=== PATIENT | male | born 1960 | race Caucasian/White ===

== ENCOUNTER 2018-04-18 15:52 | Observation (INO) | payer OTHER, SELFPAY ==
[2018-04-18] VITALS (9 sets, daily range): BP systolic 136–146; BP diastolic 70–92; PULSE 68–92; RESP 13–20; TEMP 36.7–37; O2SAT 94–99; BMI 25.9; BMI 26.0; BMI 25.4
--- NOTE | 2018-04-18 16:25 | EKG12_ITS ---
Test Reason : Blood Pressure : / mmHG Vent. Rate : 086 BPM Atrial Rate : 086 BPM P-R Int : 160 ms QRS Dur : 100 ms QT Int : 344 ms P-R-T Axes : 025 -13 016 degrees QTc Int : 411 ms Normal sinus rhythm Normal ECG Confirmed by YUNG KAMARA, JYOTI ([id number]), acquisitions editor JOEL MARIN ([id number] on 04/22/2018 1:10:29 PM Referred By: NINA Confirmed By:JYOTI BARRAGAN MD
--- NOTE | 2018-04-18 16:35 | RAD_ITS ---
STUDY: X-RAY CHEST REASON FOR EXAM: Male, 58 years old. Chest pain and weakness TECHNIQUE: Single AP portable view of the chest. COMPARISON: 11/10/2015 FINDINGS: There is hyperinflation of the lungs consistent with chronic obstructive lung disease (COPD). There is no demonstrated pleural abnormality. Normal size heart. Normal mediastinum and phillip. Normal visualized pulmonary arteries. Normal visualized aortic arch and descending thoracic aorta. Normal visualized thoracic spine. Normal visualized ribs, clavicles, and shoulders. There is no demonstrated abnormality of the visualized soft tissue structures of the upper abdomen. RAD/Chest 1 View (Portable) IMPRESSION: No acute findings Electronically Signed: Drew Santoro DO at 16:48 EDT Tel , Service support ,
[2018-04-18] MEDS: Aspirin 81 MG TAB.CHEW 324 MG PO (16:46)
[2018-04-18] MEDS: 0.9% Normal Saline 1,000 ML 150 ML IV ×2 (16:46→19:59)
[2018-04-18 17:11] LABS: Absolute Lymphocyte Count 2.23 X10^3/ul (0.83-4.51); Absolute Neutrophil Count 4.8 X10^3/uL (2.0-7.7); Basophil# 0.03 X10^3/uL; Basophil% 0.4 % (0-1); Eosinophil# 0.22 X10^3/uL; Eosinophils% 2.8 % (0-5); Hematocrit 42.4 % (40-54); Hemoglobin 14.4 g/dl (13.0-16.5); Lymphocyte # 2.23 X10^3/ul (4.0); Lymphocyte % 28.2 % (19-41); Mean Corpuscular Hgb 32.4 pg (27.0-32.0); Mean Corpuscular Volume 95.5 fL (80-94); Mean Platelet Vol. 9.7 fl (6.2-12.0); Monocyte# 0.66 X10^3/uL; Monocyte% 8.3 % (0-10); Neutrophil # 4.76 X10^3/uL (2.7-7.7); Neutrophil % 60.2 % (47-70); Platelet Count 246 K/mm3 (150-450); RBC Distribution Width CV 13.6 % (11.6-14.6); RBC Distribution Width SD 47.2 fl (35.1-43.9); Red Blood Count 4.44 M/mm3 (4.6-6.2); White Blood Count 7.9 K/mm3 (4.4-11.0)
[2018-04-18 17:29] LABS: Anion Gap 5 (5-15); BUN 13 mg/dL (7-18); BUN/Creat Ratio 12.5 RATIO (10-20); Calcium,Total 9.2 mg/dL (8.5-10.1); Chloride 107 mmol/L (98-107); Creatinine, Serum 1.04 mg/dL (0.70-1.30); EST Glomerular Filtration Rate 79 mL/min (>60); Est Glom Filt Rate - Afr Amer 95 mL/min (>60); Estimated Creatinine Clearance 79.31 ml/min; Glucose 88 mg/dL (74-106); Potassium 4.6 mmol/L (3.5-5.1); Sodium Level 138 mmol/L (136-145)
[2018-04-18 17:58] LABS: POSITIVE COUNT NO; POSITIVE DIFFERENTIAL NO; POSITIVE MORPHOLOGY NO
--- NOTE | 2018-04-18 18:09 | PCM.HP.STD ---
Problem List (1) Shortness of breath Status: Acute History of Present Illness Date of Admission: 04/18/18 Chief Complaint: Shortness of breath The patient is a 58 year old M with a history of hypertension, hyperlipidemia and seasonal allergies. He was admitted on 04/18/2018 by the ED with a complaint of shortness of breath of one days duration. According to patient he was doing yard work the day before admission and had sudden onset shortness of breath and some mild wheezing. It worsened with exertion was relieved by rest. 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 He was told it was elevated and so he decided to come into the ED to be checked out. He denied any chest pain and only admitted to occasional tingling in his left upper extremity. Denied any orthopnea or PND. He has an extensive smoking history of about 30 pack years and states he does have some wheezing periodically and has seasonal allergies for which he is treated. Patient had a stress test about 5 years ago he presented with chest pain and it was negative. In the ED vitals were temperature of 98.1 Fahrenheit, blood pressure of 145/70, pulse rate of 75 and respiratory rate of 14. He was saturating at 97% on room air. Labs done were pretty unremarkable. Chest x-ray showed hyperinflation of the lungs consistent with COPD and a normal sized heart. No acute findings noted. Patient is being admitted to rule out ACS in light of his cardiac risk factors. [] Past Medical History Allergies Sulfa (Sulfonamide Antibiotics) Allergy (Severe, Verified 08/27/15 16:43) Anaphylaxis NUTS Allergy (Uncoded 11/10/15 18:48) Shortness of breath Home Medications: Ambulatory Orders Medication Instructions Recorded Losartan Potassium [Cozaar] 100 mg PO DAILY 08/22/15 Albuterol Inhaler [Ventolin Hfa] 1 - 2 puff INHALATION Q4H PRN PRN 11/10/15 #1 inhaler Atorvastatin Calcium [Lipitor] 20 mg PO QHS 04/18/18 Fexofenadine/Pseudoephedrine 1 each PO DAILY 04/18/18 [Meghana-D 24 Hour Tablet] Montelukast [Singulair] 10 mg PO QHS 04/18/18 Surgical History: tonsillectomy - At age 6 Psychiatric History: No pertinent psych hx Lives: Spouse/ Significant Other Smoking Status: Current every day smoker Alcohol: Occasional Drugs: None - *Family History Paternal History Items: Heart Disease Maternal History Items: Heart Disease Review of Systems Constitutional: Denies: Chills, Fever, Weight Change Eyes: Denies: Blurred vision HEENT: Denies: Head Aches, Sinus Congestion, Sinus Drainage Cardiovascular: Denies: Chest Pain, Chest Pressure, Chest Tightness, Heaviness, Light Headedness, Orthopnea, Palpitations, Paroxysmal Noc. Dyspnea, Syncope Respiratory: Reports: Shortness of Breath, Shortness of breath upon exertion, Wheezing. Denies: Cough, Shortness of breath at rest, Sputum production Gastrointestinal: Denies: Abdominal Pain, Nausea, Vomiting Genitourinary: Denies: Dysuria Musculoskeletal: Denies: Joint Pain, Joint Tenderness Skin: Denies: Rash, Wounds Neurological: Denies: Numbness, Tingling, Focal weakness Psychiatric: Denies: Anxiety, Depression, Homicidal Ideations, Suicidal Ideations Hematologic/ Lymphatic: Denies: Easy Bruising, Easy Bleeding VTE Information - Inpt Only VTE Present on Admission: No VTE Mechan Device Prophylaxis: None VTE Pharm Prophylaxis ordered?: Yes Patient Problems: Active and Suspected Problems Shortness of breath (Acute) - Physical Exam General: Alert, Oriented x3, Cooperative, No apparent distress HEENT: Atraumatic, PERRLA, EOMI, Normocephalic Oral: Moist Mucosa Neck: Supple, No JVD, Negative Carotid Bruits Lungs: Clear to auscultation, Normal air movement Cardiovascular: Regular rate, Regular Rhythm, Normal S1, Normal S2, No murmurs Abdomen: Bowel Sounds Present, Soft, Non Tender, Non-Distended, No Hepato-splenomegaly Extremities: No clubbing, No cyanosis, No edema, Capillary Refill Less than 3 Seconds Skin: No rashes, No breakdown Musculoskeletal: No Tenderness to Palpation of Joints or Extremities Lymphatic: No Cervical, Supraclavicular, or Inguinal Adenopathy Neurological: Cranial nerves II-XII grossly intact Psych/Mental Status: Normal Affect, Appropriate, Alert and oriented to time, place, person, mood and affect Vital Signs Temp Pulse Resp BP Pulse Ox 98.1 F 75 14 145/70 H 97 04/18/18 15:53 04/18/18 17:15 04/18/18 17:15 04/18/18 17:15 04/18/18 17:15 Oxygen Delivery Method Room Air Weight: 176 lb Body Mass Index (BMI) 25.9 Laboratory Tests Past 24 Hrs 04/18/18 04/18/18 16:50 16:50 WBC 7.9 RBC 4.44 L Hgb 14.4 Hct 42.4 MCV 95.5 H MCH 32.4 H MCHC 34.0 RDW 13.6 RDW Differential 47.2 H Plt Count 246 MPV 9.7 Immature Gran % (Auto) 0.100 Neut % (Auto) 60.2 Lymph % (Auto) 28.2 [place] % (Auto) 8.3 Eos % (Auto) 2.8 Baso % (Auto) 0.4 Absolute Neuts (auto) 4.8 Absolute Lymphs (auto) 2.23 Total Counted Not Reportable Sodium 138 Potassium 4.6 Chloride 107 Carbon Dioxide 26.0 Anion Gap 5 BUN 13 Creatinine 1.04 Estim Creat Clear Calc 79.31 Est GFR (MDRD) Af Amer 95 Est GFR (MDRD) Non-Af 79 BUN/Creatinine Ratio 12.5 Glucose 88 Calcium 9.2 Troponin I < 0.015 Diagnostic Data Chest X-Ray 04/18/18 16:35 IMPRESSION: No acute findings Electronically Signed: Drew Santoro DO at 16:48 EDT Tel , Service support , Assessment/Plan All Active Problems Shortness of breath (Acute) 58-year-old male presenting with a one-day history of shortness of breath 1. Exertional dyspnea, probably due to COPD; will want to rule out ACS' Shortness of breath associated with wheezing. EKG showed normal sinus rhythm with no acute ST changes. Also normal axis. Patient did not have any clear chest pain per se but this is exertional shortness of breath and his cardiac risk factors of hypertension, hypercholesterolemia and extensive smoking history does put him at risk of coronary artery disease. Admit to [facility] with telemetry. Initial troponin was negative. We will cycle. To have treadmill nuclear stress test tomorrow. Will keep n.p.o. past midnight. Sublingual nitroglycerin as needed. will start PO aspirin 81mg daily 2. COPD Does not have a clear diagnosis of COPD. However he has an extensive smoking history of 30 pack years. Chest x-ray demonstrated hyperinflation. No PFTs on file. Will give albuterol and Atrovent for breathing treatments. Test PFT on outpatient basis. 3. Hypertension: on losartan. Will monitor 4. seasonal allergies: on fexofenadine/pseudoephedrine. 5. Hyperlipidemia; on atorvastatin 20mg qhs. will check lipid panel, and check ASCVD score;will adjust statin dose if needed based on his ASCVD score 6. DVT prophylaxis: lovenox CODE STATUS: Full Code. Patient and counseled on different types of CODE STATUS and the remaining implication. Patient selected to be full code. This note was generated with [employer] dictation software. It may contain incorrect words, spelling, and punctuation that were not noted in checking the note before signing. Code Visit OBSV E&M: [id number] Initial observation care L2
--- NOTE | 2018-04-18 18:12 | ED.VISSUMM ---
- ER Visit Summary Date of Service: 04/18/18 Chief Complaint: [Exertional dyspnea] History of Present Illness: The patient is a 58 M [presents the emergency department complaint of shortness of breath especially with exertion. Patient states that he had an episode yesterday where he was shoveling gravel and got very short of breath. Patient states that he went home and sat down and became very diaphoretic and extremely nauseated. Patient states that over last several months he has been more short of breath than usual with activity. Patient states he has no energy. Patient had a hard time sleeping last night just did not feel well and today went to the [place] station and have his blood pressure checked and noticed that his systolic was over 160. Patient denies any chest pain. He denies recent travel or surgery. There is no family history of heart disease.] Physical Examination: [HEENT-PERRLA, EOMI. Cranial nerves II through XII grossly intact. TMs clear. Mucous membranes moist. No adenopathy. Cardiovascular-regular rate and rhythm without murmur or ectopy Lungs-clear to auscultation, chest wall stable without crepitus or subcu emphysema Abdomen-normoactive bowel sounds, soft, nontender, no rebound or rigidity, no peritoneal signs. Extremities-intact ?4, normal range of motion, normal pulses, atraumatic] Test Results: [EKG obtained on arrival showed a sinus rhythm with a ventricular rate of 86 bpm with no acute ST segment changes. CBC with differential is normal. Chemistries unremarkable. Troponin was less than 0.015. Chest x-ray showed nothing acute.] Emergency Department Course and Treatment: [Patient received aspirin in the emergency department] Treatment Plan: [Admit for further workup and evaluation of exertional dyspnea as patient has multiple risk factors for coronary artery disease including hypertension, high cholesterol, smoking history, age, and male sex.] Disposition: [Admit] Impression: [Exertional dyspnea-rule out acute coronary syndrome] This note was generated with [employer] dictation software. It may contain incorrect words, spelling, and punctuation that were not noted in review of the chart prior to signing ED Disposition - Plan for ED Patient: Chief Complaint: General Illness Referrals: Ila Pacheco MD [Primary Care Provider] -
--- NOTE | 2018-04-18 18:19 | HP.PCM_ITS ---
Problem List (1) Shortness of breath Status: Acute History of Present Illness Date of Admission: 04/18/18 Chief Complaint: Shortness of breath The patient is a 58 year old M with a history of hypertension, hyperlipidemia and seasonal allergies. He was admitted on 04/18/2018 by the ED with a complaint of shortness of breath of one days duration. According to patient he was doing yard work the day before admission and had sudden onset shortness of breath and some mild wheezing. It worsened with exertion was relieved by rest. 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 He was told it was elevated and so he decided to come into the ED to be checked out. He denied any chest pain and only admitted to occasional tingling in his left upper extremity. Denied any orthopnea or PND. He has an extensive smoking history of about 30 pack years and states he does have some wheezing periodically and has seasonal allergies for which he is treated. Patient had a stress test about 5 years ago he presented with chest pain and it was negative. In the ED vitals were temperature of 98.1 Fahrenheit, blood pressure of 145/70, pulse rate of 75 and respiratory rate of 14. He was saturating at 97% on room air. Labs done were pretty unremarkable. Chest x-ray showed hyperinflation of the lungs consistent with COPD and a normal sized heart. No acute findings noted. Patient is being admitted to rule out ACS in light of his cardiac risk factors. [] Past Medical History Allergies Sulfa (Sulfonamide Antibiotics) Allergy (Severe, Verified 08/27/15 16:43) Anaphylaxis NUTS Allergy (Uncoded 11/10/15 18:48) Shortness of breath Home Medications: Ambulatory Orders Medication Instructions Recorded Losartan Potassium [Cozaar] 100 mg PO DAILY 08/22/15 Albuterol Inhaler [Ventolin Hfa] 1 - 2 puff INHALATION Q4H PRN PRN 11/10/15 #1 inhaler Atorvastatin Calcium [Lipitor] 20 mg PO QHS 04/18/18 Fexofenadine/Pseudoephedrine 1 each PO DAILY 04/18/18 [Meghana-D 24 Hour Tablet] Montelukast [Singulair] 10 mg PO QHS 04/18/18 Surgical History: tonsillectomy - At age 6 Psychiatric History: No pertinent psych hx Lives: Spouse/ Significant Other Smoking Status: Current every day smoker Alcohol: Occasional Drugs: None - *Family History Paternal History Items: Heart Disease Maternal History Items: Heart Disease Review of Systems Constitutional: Denies: Chills, Fever, Weight Change Eyes: Denies: Blurred vision HEENT: Denies: Head Aches, Sinus Congestion, Sinus Drainage Cardiovascular: Denies: Chest Pain, Chest Pressure, Chest Tightness, Heaviness, Light Headedness, Orthopnea, Palpitations, Paroxysmal Noc. Dyspnea, Syncope Respiratory: Reports: Shortness of Breath, Shortness of breath upon exertion, Wheezing. Denies: Cough, Shortness of breath at rest, Sputum production Gastrointestinal: Denies: Abdominal Pain, Nausea, Vomiting Genitourinary: Denies: Dysuria Musculoskeletal: Denies: Joint Pain, Joint Tenderness Skin: Denies: Rash, Wounds Neurological: Denies: Numbness, Tingling, Focal weakness Psychiatric: Denies: Anxiety, Depression, Homicidal Ideations, Suicidal Ideations Hematologic/ Lymphatic: Denies: Easy Bruising, Easy Bleeding VTE Information - Inpt Only VTE Present on Admission: No VTE Mechan Device Prophylaxis: None VTE Pharm Prophylaxis ordered?: Yes Patient Problems: Active and Suspected Problems Shortness of breath (Acute) - Physical Exam General: Alert, Oriented x3, Cooperative, No apparent distress HEENT: Atraumatic, PERRLA, EOMI, Normocephalic Oral: Moist Mucosa Neck: Supple, No JVD, Negative Carotid Bruits Lungs: Clear to auscultation, Normal air movement Cardiovascular: Regular rate, Regular Rhythm, Normal S1, Normal S2, No murmurs Abdomen: Bowel Sounds Present, Soft, Non Tender, Non-Distended, No Hepato- splenomegaly Extremities: No clubbing, No cyanosis, No edema, Capillary Refill Less than 3 Seconds Skin: No rashes, No breakdown Musculoskeletal: No Tenderness to Palpation of Joints or Extremities Lymphatic: No Cervical, Supraclavicular, or Inguinal Adenopathy Neurological: Cranial nerves II-XII grossly intact Psych/Mental Status: Normal Affect, Appropriate, Alert and oriented to time, place, person, mood and affect Vital Signs Temp Pulse Resp BP Pulse Ox 98.1 F 75 14 145/70 H 97 04/18/18 15:53 04/18/18 17:15 04/18/18 17:15 04/18/18 17:15 04/18/18 17:15 Oxygen Delivery Method Room Air Weight: 176 lb Body Mass Index (BMI) 25.9 Laboratory Tests Past 24 Hrs 04/18/18 04/18/18 16:50 16:50 WBC 7.9 RBC 4.44 L Hgb 14.4 Hct 42.4 MCV 95.5 H MCH 32.4 H MCHC 34.0 RDW 13.6 RDW Differential 47.2 H Plt Count 246 MPV 9.7 Immature Gran % (Auto) 0.100 Neut % (Auto) 60.2 Lymph % (Auto) 28.2 [place] % (Auto) 8.3 Eos % (Auto) 2.8 Baso % (Auto) 0.4 Absolute Neuts (auto) 4.8 Absolute Lymphs (auto) 2.23 Total Counted Not Reportable Sodium 138 Potassium 4.6 Chloride 107 Carbon Dioxide 26.0 Anion Gap 5 BUN 13 Creatinine 1.04 Estim Creat Clear Calc 79.31 Est GFR (MDRD) Af Amer 95 Est GFR (MDRD) Non-Af 79 BUN/Creatinine Ratio 12.5 Glucose 88 Calcium 9.2 Troponin I < 0.015 Diagnostic Data Chest X-Ray 04/18/18 16:35 IMPRESSION: No acute findings Electronically Signed: Drew Santoro DO at 16:48 EDT Tel , Service support , Assessment/Plan All Active Problems Shortness of breath (Acute) 58-year-old male presenting with a one-day history of shortness of breath 1. Exertional dyspnea, probably due to COPD; will want to rule out ACS' * Shortness of breath associated with wheezing. EKG showed normal sinus rhythm with no acute ST changes. Also normal axis. * Patient did not have any clear chest pain per se but this is exertional shortness of breath and his cardiac risk factors of hypertension, hypercholesterolemia and extensive smoking history does put him at risk of coronary artery disease. * Admit to [facility] with telemetry. * Initial troponin was negative. We will cycle. * To have treadmill nuclear stress test tomorrow. Will keep n.p.o. past midnight. * Sublingual nitroglycerin as needed. will start PO aspirin 81mg daily * 2. COPD * Does not have a clear diagnosis of COPD. However he has an extensive smoking history of 30 pack years. * Chest x-ray demonstrated hyperinflation. No PFTs on file. * Will give albuterol and Atrovent for breathing treatments. Test PFT on outpatient basis. * 3. Hypertension: on losartan. Will monitor 4. seasonal allergies: on fexofenadine/pseudoephedrine. 5. Hyperlipidemia; on atorvastatin 20mg qhs. will check lipid panel, and check ASCVD score;will adjust statin dose if needed based on his ASCVD score 6. DVT prophylaxis: lovenox CODE STATUS: Full Code. Patient and counseled on different types of CODE STATUS and the remaining implication. Patient selected to be full code. This note was generated with [employer] dictation software. It may contain incorrect words, spelling, and punctuation that were not noted in checking the note before signing. Code Visit OBSV E&M: [id number] Initial observation care L2
[2018-04-18] MEDS: Ipratropium/Albuterol Sulfate 3 ML AMPUL.NEB INHALATION (20:01)
[2018-04-18] MEDS: Montelukast 10 MG Tablet PO (22:41)
[2018-04-18] MEDS: Atorvastatin Calcium 20 MG Tablet PO (22:41)
[2018-04-19 01:02] VITALS: PULSE 72; RESP 18
[2018-04-19] MEDS: Ipratropium/Albuterol Sulfate 3 ML AMPUL.NEB INHALATION (01:02)
[2018-04-19] MEDS: 0.9% Normal Saline 1,000 ML 150 ML IV (02:30)
--- NOTE | 2018-04-19 05:00 | EKG12_ITS ---
Test Reason : AM EKG Blood Pressure : / mmHG Vent. Rate : 070 BPM Atrial Rate : 070 BPM P-R Int : 156 ms QRS Dur : 104 ms QT Int : 398 ms P-R-T Axes : 043 021 026 degrees QTc Int : 429 ms Normal sinus rhythm Low voltage QRS (limb leads) Confirmed by YUNG KAMARA, JYOTI ([id number]), film editor JOEL MARIN ([id number]) on 04/29/2018 8:32:02 AM Referred By: SHAE Confirmed By:JYOTI BARRAGAN MD
[2018-04-19 05:01] VITALS: PULSE 65
[2018-04-19] MEDS: 0.9% NaCl Peripheral Flush Adult/Peds IV (06:34)
--- NOTE | 2018-04-19 06:35 | NURSING ---
To nuclear med via wheelchair with GEM Bazan
[2018-04-19 08:43] VITALS: BP 134/88; PULSE 85; RESP 18; TEMP 37; O2SAT 97
[2018-04-19] MEDS: Losartan Potassium 100 MG Tablet PO (08:44)
[2018-04-19] MEDS: Loratadine 10 MG Tablet PO (08:44)
[2018-04-19 10:17] LABS: Absolute Lymphocyte Count 2.05 X10^3/ul (0.83-4.51); Absolute Neutrophil Count 3.5 X10^3/uL (2.0-7.7); Basophil# 0.03 X10^3/uL; Basophil% 0.5 % (0-1); Eosinophils% 3.2 % (0-5); Hematocrit 40.9 % (40-54); Hemoglobin 13.7 g/dl (13.0-16.5); Lymphocyte # 2.05 X10^3/ul (4.0); Lymphocyte % 32.7 % (19-41); Mean Corp Hgb Conc 33.5 g/gl (32-36); Mean Corpuscular Hgb 32.3 pg (27.0-32.0); Mean Corpuscular Volume 96.5 fL (80-94); Mean Platelet Vol. 9.6 fl (6.2-12.0); Monocyte# 0.48 X10^3/uL; Monocyte% 7.7 % (0-10); Neutrophil % 55.7 % (47-70); Platelet Count 215 K/mm3 (150-450); RBC Distribution Width CV 13.6 % (11.6-14.6); Red Blood Count 4.24 M/mm3 (4.6-6.2); White Blood Count 6.3 K/mm3 (4.4-11.0)
[2018-04-19 10:23] LABS: POSITIVE COUNT NO; POSITIVE DIFFERENTIAL NO; POSITIVE MORPHOLOGY NO
[2018-04-19 10:34] LABS: International Normalized Ratio 1.1
--- NOTE | 2018-04-19 10:34 | PCM.DC ---
- Discharge Diagnoses Current Active Problems: Current Active and Chronic Problems Shortness of breath (Acute) You will use the following diet at home:: No restrictions Discharge Activity: Return to Normal Activity Call your doctor if you observe: Shortness of breath, Dizziness, Fainting spells, Chest pain Allergies/Adverse Reactions: Allergies Sulfa (Sulfonamide Antibiotics) Allergy (Severe, Verified 08/27/15 16:43) Anaphylaxis NUTS Allergy (Uncoded 11/10/15 18:48) Shortness of breath Medications to take at Discharge Losartan Potassium [Cozaar] 100 mg PO DAILY 08/22/15 Albuterol Inhaler [Ventolin Hfa] 1 - 2 puff INHALATION Q4H PRN PRN #1 inhaler 11/10/15 Atorvastatin Calcium [Lipitor] 20 mg PO QHS 04/18/18 Fexofenadine/Pseudoephedrine [Meghana-D 24 Hour Tablet] 1 each PO DAILY 04/18/18 Montelukast [Singulair] 10 mg PO QHS 04/18/18 Prednisone See Taper PO DAILY #30 tab 04/19/18 The following prescriptions were given: Prednisone See Taper PO DAILY #30 tab Primary Care Physician: Ila Pacheco MD [Primary Care Provider] - Please follow up with your Primary Care Physician in: 1 Week Test Results: Test results from this visit will be discussed in further detail at your follow-up appointment, if applicable. Please Follow Up With: Anthony Zavaleta MD - Or Dr. Ferreira, Pulmonary Medicine When: 2-4 Weeks Proposed Discharge Date: 04/19/18
[2018-04-19 10:35] LABS: Partial Thromboplast Time 26.4 Seconds (24.1-36.2)
--- NOTE | 2018-04-19 10:35 | PCM.DC.SUM ---
Discharge Date and Diagnosis Date of Admission: 04/18/18 Date of Discharge: 04/19/18 - Primary Discharge Diagnosis Active and Suspected Problems 1. Suspected exacerbation of COPD 2. Hypertension 3. Hyperlipidemia 4. Seasonal allergies Hospital Course and Treatment Imaging Results: Diagnostic Data Chest X-Ray 04/18/18 16:35 IMPRESSION: No acute findings Electronically Signed: Drew Santoro at 16:48 EDT Tel , Service support , Operations: None Procedures: Stress test Summary of Care Provided: The patient is a 58 year old M admitted 04/18/2018 due to shortness of breath. He has a past medical history of hypertension, hyperlipidemia, and seasonal allergies. Patient states he has been seeing his primary care physician due to worsening seasonal allergies since springtime. He reports wheezing and shortness of breath with exertion. He denies chest pain. Troponin negative. Patient underwent nuclear stress test which was negative for ischemia. EKG without evidence of ischemia. Cardiac etiology ruled out. Patient has a [id number] smoking history. Suspect exacerbation of COPD. Recommend follow-up with primary care physician in 1 week. Recommend establishing with pulmonary medicine and completing PFTs and further evaluation for COPD. Patient has albuterol inhaler at home which he uses as needed for shortness of breath. Patient will be discharged on prednisone taper. Other chronic medical conditions are stable at this time. General: Alert, Oriented x3, Cooperative, No apparent distress HEENT: Atraumatic, PERRLA, EOMI, Normocephalic Oral: Moist Mucosa Neck: Supple, No JVD, Negative Carotid Bruits Lungs: Diminished, scattered expiratory wheezing Cardiovascular: Regular rate, Regular Rhythm, Normal S1, Normal S2, No murmurs Abdomen: Bowel Sounds Present, Soft, Non Tender, Non-Distended Extremities: No clubbing, No cyanosis, No edema, Capillary Refill Less than 3 Seconds Skin: No rashes, No breakdown Musculoskeletal: No Tenderness to Palpation of Joints or Extremities Lymphatic: No Cervical, Supraclavicular, or Inguinal Adenopathy Neurological: Cranial nerves II-XII grossly intact Psych/Mental Status: Normal Affect, Appropriate, Alert and oriented to time, place, person, mood and affect Patient seen exam prior to discharge. Physical assessment as noted above. Patient stable for discharge home with the follow-up recommendations as noted above. This patient was seen by EDWARD Wilson under the supervision of Dr. Gibbs. Discharge Activity: Return to Normal Activity Call your doctor if you observe: Shortness of breath, Dizziness, Fainting spells, Chest pain Home Medications: Medications to take at Discharge Losartan Potassium [Cozaar] 100 mg PO DAILY 08/22/15 Albuterol Inhaler [Ventolin Hfa] 1 - 2 puff INHALATION Q4H PRN PRN #1 inhaler 11/10/15 Atorvastatin Calcium [Lipitor] 20 mg PO QHS 04/18/18 Fexofenadine/Pseudoephedrine [Meghana-D 24 Hour Tablet] 1 each PO DAILY 04/18/18 Montelukast [Singulair] 10 mg PO QHS 04/18/18 Prednisone See Taper PO DAILY #30 tab 04/19/18 Following Prescrptions Were Given to Patient: Prednisone See Taper PO DAILY #30 tab Primary Care Physician: Ila Pacheco MD [Primary Care Provider] - Please follow up with your Primary Care Physician in: 1 Week Please Follow Up With: Anthony Zavaleta MD - Or Dr. Ferreira, Pulmonary Medicine When: 2-4 Weeks Medical Necessity - Tobacco Use Smoking Status: Current every day smoker Tobacco Use: Cigarettes Meaningful Use Info Meaningful Use Diagnoses (Choose all that apply): None applicable
[2018-04-19 10:38] LABS: Anion Gap 7 (5-15); BUN 9 mg/dL (7-18); Calcium,Total 8.5 mg/dL (8.5-10.1); Chloride 109 mmol/L (98-107); Cholesterol 145 mg/dL (200); EST Glomerular Filtration Rate 93 mL/min (>60); Est Glom Filt Rate - Afr Amer 113 mL/min (>60); Estimated Creatinine Clearance 91.65 ml/min; Glucose 97 mg/dL (74-106); High Density Lipoprotein 47 mg/dL; Potassium 4.3 mmol/L (3.5-5.1); Sodium Level 143 mmol/L (136-145); Triglycerides 103 mg/dL; Very Low Density Lipoprotein 21 mg/dL (5-40)
--- NOTE | 2018-04-19 10:45 | DS.PCM_ITS ---
Addendum entered and electronically signed by EDWARD Wilson 04/19/18 10:47: Code Visit Discharged home in stable condition. Discharge time spent 35 minutes. Original Note: Discharge Date and Diagnosis Date of Admission: 04/18/18 Date of Discharge: 04/19/18 - Primary Discharge Diagnosis Active and Suspected Problems 1. Suspected exacerbation of COPD 2. Hypertension 3. Hyperlipidemia 4. Seasonal allergies Hospital Course and Treatment Imaging Results: Diagnostic Data Chest X-Ray 04/18/18 16:35 IMPRESSION: No acute findings Electronically Signed: Drew Santoro DO at 16:48 EDT Tel , Service support , Operations: None Procedures: Stress test Summary of Care Provided: The patient is a 58 year old M admitted 04/18/2018 due to shortness of breath. He has a past medical history of hypertension, hyperlipidemia, and seasonal allergies. Patient states he has been seeing his primary care physician due to worsening seasonal allergies since springtime. He reports wheezing and shortness of breath with exertion. He denies chest pain. Troponin negative. Patient underwent nuclear stress test which was negative for ischemia. EKG without evidence of ischemia. Cardiac etiology ruled out. Patient has a 30- pack-year smoking history. Suspect exacerbation of COPD. Recommend follow-up with primary care physician in 1 week. Recommend establishing with pulmonary medicine and completing PFTs and further evaluation for COPD. Patient has albuterol inhaler at home which he uses as needed for shortness of breath. Patient will be discharged on prednisone taper. Other chronic medical conditions are stable at this time. General: Alert, Oriented x3, Cooperative, No apparent distress HEENT: Atraumatic, PERRLA, EOMI, Normocephalic Oral: Moist Mucosa Neck: Supple, No JVD, Negative Carotid Bruits Lungs: Diminished, scattered expiratory wheezing Cardiovascular: Regular rate, Regular Rhythm, Normal S1, Normal S2, No murmurs Abdomen: Bowel Sounds Present, Soft, Non Tender, Non-Distended Extremities: No clubbing, No cyanosis, No edema, Capillary Refill Less than 3 Seconds Skin: No rashes, No breakdown Musculoskeletal: No Tenderness to Palpation of Joints or Extremities Lymphatic: No Cervical, Supraclavicular, or Inguinal Adenopathy Neurological: Cranial nerves II-XII grossly intact Psych/Mental Status: Normal Affect, Appropriate, Alert and oriented to time, place, person, mood and affect Patient seen exam prior to discharge. Physical assessment as noted above. Patient stable for discharge home with the follow-up recommendations as noted above. This patient was seen by EDWARD Wilson under the supervision of Dr. Gibbs. Discharge Activity: Return to Normal Activity Call your doctor if you observe: Shortness of breath, Dizziness, Fainting spells , Chest pain Home Medications: Medications to take at Discharge Losartan Potassium [Cozaar] 100 mg PO DAILY 08/22/15 Albuterol Inhaler [Ventolin Hfa] 1 - 2 puff INHALATION Q4H PRN PRN #1 inhaler Atorvastatin Calcium [Lipitor] 20 mg PO QHS 04/18/18 Fexofenadine/Pseudoephedrine [Meghana-D 24 Hour Tablet] 1 each PO DAILY Montelukast [Singulair] 10 mg PO QHS 04/18/18 Prednisone See Taper PO DAILY #30 tab 04/19/18 Following Prescrptions Were Given to Patient: Prednisone See Taper PO DAILY #30 tab Primary Care Physician: Ila Pacheco MD [Primary Care Provider] - Please follow up with your Primary Care Physician in: 1 Week Please Follow Up With: Anthony Zavaleta MD - Or Dr. Ferreira, Pulmonary Medicine When: 2-4 Weeks Medical Necessity - Tobacco Use Smoking Status: Current every day smoker Tobacco Use: Cigarettes Meaningful Use Info Meaningful Use Diagnoses (Choose all that apply): None applicable
--- NOTE | 2018-04-19 16:10 | STRESSREP ---
Stress Test Report Date: 04/19/2018 Procedure: Exercise tolerance test/imaging study Indications: Chest pain Consent: Per the patient Procedure: The patient exercised on a Anthony protocol for 9 minutes completing Stage 3 achieving a peak heart rate of 151 bpm (92 % predicted maximal heart rate) with a peak blood pressure 160/86 mmHg and a peak MET capacity of 10 METs. The baseline ECG demonstrated normal sinus rhythm. The peak exercise ECG demonstrated no obvious ECG changes. There was an isolated PAC during exercise and recovery. The functional capacity was considered good. There was no complaint of chest discomfort during exercise or recovery. The examination was discontinued secondary to dyspnea and leg discomfort. Impression: 1. Technically adequate (percent predicted maximal heart rate greater than 85%) exercise tolerance test 2. Peak exercise ECG demonstrated no obvious ECG changes 3. There was an isolated PAC during exercise and recovery. 4. Nuclear images pending Myocardial perfusion imaging study: Technique: The patient was injected with 11.6 mCi of technetium 99m Cardiolite and subsequently rest SPECT Cardiolite nuclear imaging was obtained in the horizontal long, vertical long, and short axis views. The patient exercised on a Anthony protocol for 9 minutes completing Stage 3 achieving a peak heart rate of 151 bpm (92 % predicted maximal heart rate) with a peak blood pressure 160/86 mmHg and a peak MET capacity of 10 METs. The patient was injected with 33.3 mCi of technetium 99m Cardiolite and subsequently stress SPECT Cardiolite nuclear imaging was obtained in the horizontal long, vertical long, and short axis views. A gated Cardiolite study at peak stress was obtained. Interpretation: Rest and stress SPECT Cardiolite nuclear imaging status post realignment, normalization, and attenuation correction, demonstrates wall area of subtle diminished tracer uptake near the thecal segments without significant change between rest and stress. There is end systolic thickening and brightening. The gated Cardiolite study demonstrates myocardial thickening and inward wall motion. The reported LVEF is 61 %. Impression: 1. Rest and stress SPECT Cardiolite nuclear imaging demonstrate myocardial perfusion changes appearing compatible with physiologic apical thinning with no myocardial perfusion changes consider diagnostic for associated stress-induced myocardial ischemia or previous myocardial injury/infarction. 2. The gated Cardiolite study reports an LVEF of 61 %. This note was generated with [employer] software. It may contain incorrect words, spelling, and punctuation that were not noted in checking the note before signing.
--- NOTE | 2018-04-19 16:15 | STRESSREP_ITS ---
Stress Test Report Date: 04/19/2018 Procedure: Exercise tolerance test/imaging study Indications: Chest pain Consent: Per the patient Procedure: The patient exercised on a Anthony protocol for 9 minutes completing Stage 3 achieving a peak heart rate of 151 bpm (92 % predicted maximal heart rate) with a peak blood pressure 160/86 mmHg and a peak MET capacity of 10 METs. The baseline ECG demonstrated normal sinus rhythm. The peak exercise ECG demonstrated no obvious ECG changes. There was an isolated PAC during exercise and recovery. The functional capacity was considered good. There was no complaint of chest discomfort during exercise or recovery. The examination was discontinued secondary to dyspnea and leg discomfort. Impression: 1. Technically adequate (percent predicted maximal heart rate greater than 85% ) exercise tolerance test 2. Peak exercise ECG demonstrated no obvious ECG changes 3. There was an isolated PAC during exercise and recovery. 4. Nuclear images pending Myocardial perfusion imaging study: Technique: The patient was injected with 11.6 mCi of technetium 99m Cardiolite and subsequently rest SPECT Cardiolite nuclear imaging was obtained in the horizontal long, vertical long, and short axis views. The patient exercised on a Anthony protocol for 9 minutes completing Stage 3 achieving a peak heart rate of 151 bpm (92 % predicted maximal heart rate) with a peak blood pressure 160/ 86 mmHg and a peak MET capacity of 10 METs. The patient was injected with 33.3 mCi of technetium 99m Cardiolite and subsequently stress SPECT Cardiolite nuclear imaging was obtained in the horizontal long, vertical long, and short axis views. A gated Cardiolite study at peak stress was obtained. Interpretation: Rest and stress SPECT Cardiolite nuclear imaging status post realignment, normalization, and attenuation correction, demonstrates wall area of subtle diminished tracer uptake near the thecal segments without significant change between rest and stress. There is end systolic thickening and brightening. The gated Cardiolite study demonstrates myocardial thickening and inward wall motion. The reported LVEF is 61 %. Impression: 1. Rest and stress SPECT Cardiolite nuclear imaging demonstrate myocardial perfusion changes appearing compatible with physiologic apical thinning with no myocardial perfusion changes consider diagnostic for associated stress-induced myocardial ischemia or previous myocardial injury/infarction. 2. The gated Cardiolite study reports an LVEF of 61 %. This note was generated with [employer] software. It may contain incorrect words, spelling, and punctuation that were not noted in checking the note before signing.
== END 2018-04-19 11:40 | disposition home or self-care (01) ==
LOC: ED 17:00 → MS3 18:40
PROVIDERS: Family Medicine; Admitting Provider Student in an Organized Health Care Education/Training Program; Emergency Provider Emergency Medicine; Family Provider Family Medicine; PCP Family Medicine; Visit Provider Internal Medicine
DX: J44.1 Chronic obstructive pulmonary disease with (acute) exacerbation (principal); I10 Essential (primary) hypertension; E78.5 Hyperlipidemia, unspecified; F17.210 Nicotine dependence, cigarettes, uncomplicated; Z79.899 Other long term (current) drug therapy
CPT/HCPCS: 36415; 71045; 78452; 80048; 80061; 84484; 85025; 85610; 85730; 93005; 93017; 94640; 96360; 96361; 99218; 99285; A9500; J7030; A4216; G0378

== ENCOUNTER → 2018-08-05 07:45 | Outpatient (CLI) | payer OTHER, SELFPAY ==
--- NOTE | 2018-08-05 07:46 | CT_ITS ---
STUDY: LOW DOSE CT LUNG CANCER SCREENING REASON FOR EXAM: Male, 58 years old. Tobacco use, smokes 1/4 pack per day x 30 years. Hx hypertension. RADIATION DOSAGE (If Supplied By Facility): CTDIvol = ( 2.55 ) mGy, DLP = ( 85.51 ) mGycm TECHNIQUE: No contrast was administered. Low dose technique was utilized (average mAS-38 and kVp 120). 1.25 mm axial source images with a slice interval of 1.25-mm were reconstructed in lung windows. 2.5 mm axial source images with a slice interval of 2.5-mm were reconstructed in lung windows. 5.0 mm axial source images with a slice interval of 5.0-mm were reconstructed in soft tissue windows. Nodule measured using lung windows on PACS and/or independent workstation with automated measurement of minimum and maximum diameter. Nodule measurement reported as average diameter rounded to the nearest whole number. Growth is defined as an increase ins size of greater than 1.5 mm. COMPARISON: None. NODULES: Subsegmental atelectases are noted in the right and left lung bases. There is a calcified granuloma in the lingula measures approximately 4 mm. There is no demonstrated pleural abnormality. Normal heart and pericardium. Normal mediastinum. Normal hilar regions. Normal unenhanced pulmonary arteries. Normal aorta arch and descending thoracic aorta. Normal osseous structures. There is no demonstrated abnormality of the visualized upper abdomen. CT/Low Dose CT Lung Screening IMPRESSION: Lung-RADS category 2. Benign findings. Recommendation: Routine screening CT scan in one year. IMPORTANT NOTES FOR USE: ACR Lung-RADS Version 1.0 Assessment Categories Release Date: January 22, 2014 Category: Coded 0-4 bases on nodule(s) with highest degree of suspicion. Negative screen is defined as categories 1 and 2; a positive screen is defined as categories 3 and 4. Category 3 and 4A nodules that are unchanged on interval CT should be coded as category 2, and individuals returned to screening in 12 months. Category 4X: Category 3 or 4 nodules with additional imaging findings that increase the suspicion of lung cancer, such as spiculation, GGN that doubles in size in 1 year, enlarged lymph notes, etc. Category Modifiers: S (significant finding unrelated to lung cancer) and C (prior history of treated lung cancer) may be added to the 0-4 Lung-RADS Electronically Signed: Maddi Marie MD at 8:04 EST Tel , Service support ,
== END ==
PROVIDERS: Family Provider Family Medicine; PCP Family Medicine; Referring Provider Internal Medicine Critical Care Medicine; Visit Provider Internal Medicine Critical Care Medicine
DX: F17.210 Nicotine dependence, cigarettes, uncomplicated (principal)
CPT/HCPCS: G0297

== ENCOUNTER → 2018-08-15 07:41 | Outpatient (CLI) | payer OTHER, SELFPAY ==
[2018-07-14 12:41] VITALS: BMI 25.4
--- NOTE | 2018-08-15 11:55 | PFT ---
INTRODUCTION: The patient is a 58-year-old male that presents for pulmonary function studies secondary to a diagnosis of shortness of breath. Respiratory therapy reports good patient effort. Bronchodilators were used during testing. INTERPRETATION: Forced expiration spirometry demonstrates the presence of a moderate large airways obstructive ventilatory defect. There was a significant response to aerosolized bronchodilators noted, based upon change in FEV1. Spirograms are of good quality do not plateau indicating slow emptying of the lungs. Body plethysmography was performed and reveals lung volumes to be within normal limits. Diffusing capacity by single breath CO is elevated at 141% of predicted. IMPRESSION: These pulmonary function studies demonstrate the presence of a reversible moderate large airways obstructive ventilatory defect. There are no previous pulmonary function studies available for comparison.
== END ==
PROVIDERS: Family Provider Family Medicine; PCP Family Medicine; Referring Provider Internal Medicine Critical Care Medicine; Visit Provider Internal Medicine Critical Care Medicine
DX: R06.02 Shortness of breath (principal); F17.210 Nicotine dependence, cigarettes, uncomplicated
CPT/HCPCS: 94060; 94726; 94729

== ENCOUNTER → 2018-08-25 11:40 | Outpatient (CLI) | payer OTHER, SELFPAY ==
[2018-08-25 10:42] VITALS: BMI 26.2
[2018-08-25 12:00] LABS: Absolute Neutrophil Count 5.1 X10^3/uL (2.0-7.7); Basophil# 0.03 X10^3/uL; Basophil% 0.4 % (0-1); Eosinophil# 0.07 X10^3/uL; Eosinophils% 0.9 % (0-5); Hematocrit 43.6 % (40-54); Lymphocyte % 27.5 % (19-41); Mean Corp Hgb Conc 34.4 g/gl (32-36); Mean Corpuscular Hgb 32.8 pg (27.0-32.0); Mean Corpuscular Volume 95.4 fL (80-94); Mean Platelet Vol. 9.6 fl (6.2-12.0); Monocyte# 0.56 X10^3/uL; Neutrophil # 5.13 X10^3/uL (2.7-7.7); Neutrophil % 64.2 % (47-70); Platelet Count 251 K/mm3 (150-450); RBC Distribution Width CV 12.9 % (11.6-14.6); RBC Distribution Width SD 44.6 fl (35.1-43.9); Red Blood Count 4.57 M/mm3 (4.6-6.2)
[2018-08-25 12:01] LABS: POSITIVE COUNT NO; POSITIVE DIFFERENTIAL NO; POSITIVE MORPHOLOGY NO
[2018-08-27 20:06] LABS: Alternaria alternata 5.61 kU/L (Class IV); Bermuda Grass 0.46 kU/L (Class I); Bluegrass, Kentucky 4.78 kU/L (Class IV); Cat Hair/Dander, Standard 0.78 kU/L (Class II); D pteronyssinus 0.45 kU/L (Class I); Dog Epithelia 2.35 kU/L (Class III); Elm, American White 0.46 kU/L (Class I); Oak, White <0.10 kU/L (Class 0); Plantain, English <0.10 kU/L (Class 0); Ragweed, Short/Common 2.34 kU/L (Class III)
[2018-08-28 08:33] LABS: Mouse Urine 0.16 kU/L (Class 0/I)
[2018-08-28 16:06] LABS: Aspirgillus flavus Negative (Neg:<1:1); Aspirgillus fumigatus Negative (Neg:<1:1); Aspirgillus niger Negative (Neg:<1:1)
[2018-08-29 11:17] LABS: Immunoglobulin E 369 IU/mL (0-100)
--- OUTSIDE RECORDS SUMMARY | 2018-10-20 14:56 | XMS RPT_ITS ---
:1960 Author Organization OHIP Support Name Relationship Address Phone [employer] Unavailable [address] + [place] [address] QUINN, HANNA Unavailable [address] + [place] [address] [employer] Unavailable [address] + [place] [address] QUINN, HANNA Unavailable [address] + [place] [address] [employer] Unavailable [address] + [place] [address] QUINN, HANNA Unavailable [address] + [place] [address] [employer] Unavailable [address] + [place] [address] QUINN, HANNA Unavailable [address] + [place] [address] [employer] Unavailable [address] + [place] [address] QUINN, HANNA Unavailable [address] + [place] [address] [employer] Unavailable [address] + [place] [address] QUINN, HANNA Unavailable [address] + [place] [address] [employer] Unavailable [address] + [place] [address] QUINN, HANNA Unavailable [address] + [place] [address] [employer] Unavailable [address] + [place] [address] QUINN, HANNA Unavailable [address] + [place] [address] [employer] Unavailable [address] + [place] [address] QUINN, HANNA Unavailable [address] + [place] [address] [employer] Unavailable [address] + [place] [address] QUINN, HANNA Unavailable [address] + [place] [address] [employer] Unavailable [address] + [place] [address] QUINN, HANNA Unavailable [address] + [place] [address] [employer] Unavailable [address] + [place] [address] QUINN, HANNA Unavailable [address] [phone] [place] [address] Care Team Providers Name Role Phone Ila Pacheco Attending Unavailable Jodiaiff, Ila Primary Care Unavailable Beeiff, Ila Primary Care Unavailable Koram, Chanel Rena Admitting Unavailable Triston Gibbs Attending Unavailable Koram, Chanel Rena Admitting Unavailable EDWARD Wilson Attending Unavailable Beeiff, Ila Primary Care Unavailable Triston Gibbs Consulting Unavailable Koram, Chanel Rena Attending Unavailable Francisco Barragan Attending Unavailable Francisco Barragan Attending Unavailable Jenniferam, Chanel Rena Referring Unavailable Raymond Ferreira D.O. Attending Unavailable Beeiff, Ila Referring Unavailable Raymond Ferreira D.O. Attending Unavailable Raymond Ferreira D.O. Referring Unavailable Jolliff, Ila Primary Care Unavailable Raymond Ferreira D.O. Attending Unavailable Raymond Ferreira D.O. Referring Unavailable Beeiff, Ila Primary Care Unavailable Carmen Purvis Attending Unavailable Ila Pacheco Referring Unavailable Carmne Purvis Attending Unavailable Carmen uPrvis Referring Unavailable Rubylliff, Ila Primary Care Unavailable Raymond Ferreira D.O. Attending Unavailable Raymond Ferreira D.O. Referring Unavailable PROBLEMS PROBLEMS DATE TYPE CONDITION / CODE ATTENDING STATUS SOURCE 08/25/2018 Unknown J45.909 - Purvis, Active [place] Unspecified asthma, [facility] uncomplicated / Hospital J45.909(ICD-10) Repository 08/25/2018 Unknown R06.02 - Shortness Purvis, Active [place] of breath / [facility] R06.02(ICD-10) Hospital Repository 08/25/2018 Unknown Z23 - Encounter for Yaniv, Active [place] immunization / [facility] Z23(ICD-10) Hospital Repository 07/14/2018 Unknown F17.210 - Nicotine Raymond Jhon, Active [place] dependence, D.O. [facility] cigarettes, Hospital uncomplicated / Repository F17.210(ICD-10) 06/07/2018 Unknown R06.09 - Other MoodispaFrancisco duff Active [place] forms of dyspnea / Community R06.09(ICD-10) Hospital Repository 06/07/2018 Unknown I10 - Essential MoodispaFrancisco duff Active [place] (primary) [facility] hypertension / Hospital I10(ICD-10) Repository PROCEDURES PROCEDURES No Procedure Records FoundRESULTS RESULTS PULMONARY VISIT REPORT Observed: 08/26/2018 Status: F Source: [place] 6:29 PM [facility] REPOSITORY [facility] [address] [place] [address] OFFICE VISIT Date of Service: 08/25/18 MR#: [id number] Acct: [id number] Name: KIKO QUINN Rep #: [id number] : 1960 Provider: Carmen Purvis Age/Sex: 58/M Location: [facility] [place] Status: Signed Assessment AND Plan 1. Moderate persistent asthma without complication J45.40 Plan Educated on the need for Flovent as maintenance medication, patient conveys understanding. Annual influenza vaccination current. Patient has never had a pneumonia vaccine, provided in the office today. Will obtain blood work to determine allergic triggers. Also will evaluate for IgE or eosinophilic asthma. Will discuss test results with the patient at the follow-up in [address] Ferreira. The patient has been encouraged to contact the office with any new or worsening symptoms in the meantime. If exacerbation occurs we will evaluate these blood tests and determine if there is additional medications that would be appropriate for treatment. 2. Tobacco abuse Z72.0 Plan A 15 minute, face to face discussion occurred with the patient regarding smoking cessation. Risks of continued tobacco abuse was covered such as heart disease, stroke, cancer, and emphysema, among others. The many health benefits quitting, was discussed and the patient was educated on the fact that smokers lose an average of 10 minutes of life for every cigarette smoked. We discussed the pathophysiology of smoking addiction and its dual addictive components of nicotine addiction and psychological addiction. Nicotine replacement was discussed. We also talked about medications that may be helpful such as Bupropion (Wellbutrin) or Varenicline (Chantix). Advise was also offered on preoccupying the mind during trigger times with activities such as chewing gum, sucking on hard candy or utilizing their hands with an activity such as drawing. Currently the patient is smoking one half Ppd. At this time, KIKO elects to continue to cut back. We will continue to monitor the tobacco abuse and encourage cessation. You may call the free hotline 5-252-SEUNNOW. People who use this line are THREE times more likely to remain smoke free. Plan Detail Other Orders Orders: Other Medications Refilled: Discontinued: Pneumovax 23 (pneumococcal 23-christina ps vaccine) 0.5 mL IM ONCE 0.5 mL 0RF NS R06.02, Z23 Discontinued Reason: Office Medication has been Documented as given Follow Up 6 Months (DMB) HPI 6 wk FU: Chief Complaint: Shortness of breath HPI Comments Details: This is a 58 year old M, currently under the care of Ila Pacheco MD, here today to review test results. Is ambulatory, on room air. He has not been seen in the ED urgent care for respiratory illnesses since his last office visit. Is not required any antibiotics or prednisone for any breathing problems. He is compliant with Singulair and Zyrtec daily. He is also compliant with Flovent, however was using it as a rescue inhaler. He did not realize it should be a maintenance medication to be utilized daily. He is also using his rescue inhaler 2- 3 times per week. He continues to smoke 1/2 pack of cigarettes daily. He does report that in the spring and in the fall he has seasonal triggers that cause exacerbations of his asthma. He currently has shortness of breath occasionally with exertion, somewhat removed by the use of his albuterol. He denies any wheezing, chest tightness, chest pain or palpitations. He is not currently having a cough, sputum production or hemoptysis. Denies any fever, chills or body aches. I personally reviewed the tests/images/tracings which showed: Complete Pulmonary Function test were preformed on August 15, 2018, and showed FVC of 84 % of predicted, FEV1 of 80 % of predicted, FEV1/FVC ratio of 73 %, TLC of 94 % of predicted, RV of 92 % of predicted, DLCO 141. The test was interpreted to be consistent with reversible moderate large airway obstructive ventilatory defect, with a significant response to bronchodilators and a preserved diffusing capacity. I personally reviewed a chest CT, that was completed on August 05, 2018, that showed segmental atelectasis noted in the right and left lung bases, there is a calcified granuloma in the lingula measuring approximately 4 mm. No nodules, lung RADS category 2, benign findings. Intake Vital Signs08/25/18 Height 5 ft 9 in 08/25/18 Weight: 178 lb Intake Visit Reasons: 6 wk FU Accompanied by: Self Allergies peanut Allergy (Severe, Verified 08/25/18 10:43) Anaphylaxis Sulfa (Sulfonamide Antibiotics) Allergy (Severe, Verified 08/25/18 10:43) Anaphylaxis NUTS Allergy (Severe, Uncoded 08/25/18 10:43) Anaphylaxis seasonal allergies Allergy (Mild, Uncoded 08/25/18 10:43) Other Medications Losartan Potassium [Cozaar] 100 mg PO DAILY 08/22/15 [History Confirmed 08/25/18] Atorvastatin Calcium [Lipitor] 20 mg PO QHS 04/18/18 [History Confirmed 08/25/18] Fexofenadine/Pseudoephedrine [Meghana-D 24 Hour Tablet] 1 ea PO DAILY 04/18/18 [History Confirmed 08/25/18] Montelukast [Singulair] 10 mg PO QHS 04/18/18 [History Confirmed 08/25/18] cetirizine 10 mg capsule 10 mg PO DAILY 07/11/18 [History Confirmed 08/25/18] albuterol sulfate HFA 90 mcg/actuation aerosol inhaler 1 - 2 puff INHALATION Q4H PRN PRN #1 inhaler 08/25/18 [Rx Confirmed 08/25/18] PFSH Medical History COPD (chronic obstructive pulmonary disease) (Chronic) HTN (hypertension) (Chronic) High cholesterol (Chronic) Seasonal allergies (Chronic) Social History current occupational status: employed pets and animals: Yes pets and animals: dog(s) Smoking Status: Current every day smoker alcohol intake: current alcohol intake frequency: 3 or more drinks per day Alcohol type: beer Review of Systems Const CONSTITUTIONAL: Negative anorexia, body ache, chills, daytime sleepiness, fever(s), night sweats, oral thrush, stops breathing during sleep, weight loss, sleeping in chair, fatigue, weight loss, weight gain, frequent colds, seasonal allergies, other, headache(s) or orthopnea EETM Ear Nose Throat Mouth: Positive hearing normal and post nasal drip; negative hard of hearing, hoarseness, dry mouth in morning, change in vision, itchy eyes, eye pain, swallowing Difficulty, ear pain, nose bleed, headache(s), mouth pain, nasal congestion, nasal discharge, sinus pain, sinus pressure, sore throat or other Cardio Cardiovascular: Negative chest pain, chest pain at rest, chest pain with activity, irregular heart rhythm, edema, shortness of breath when lying down, palpitations, murmur or other Resp Respiratory: Positive as per HPI and shortness of breath shortness of breath: Positive with activity; negative pain with cough, wheezing, chest congestion, cough, chest tightness, pain on inspiration, inhalers, increase use of rescue inhalers, snoring, apnea or other Gastro Gastrointestional: Negative bloody stools, change in appetite, difficulty swallowing, reflux, hematemesis, melena stool, loose stool, constipation or other Genitourinary: Negative blood in urine, nocturia, pain with urination or other Musc Musculoskeletal: Negative body pain, back pain, neck pain or other Skin/Breast Skin/Breast: Negative dry skin, itching, rash, unusual bruising, breast lump or other Neuro Neurological: Negative restless legs, confusion, weakness or other Psych Psychocological: Negative abnormal sleep pattern, anxiety, thoughts of hurting self/others, hopelessness or other Lymph Lymphatic: Negative easy bleeding, easy bruising, swollen lymph nodes or other Exam Const Constitutional: Positive conversant, cooperative, in no acute respiratory distress, healthy appearing, well developed, well nourished and good hygiene Head Head: Positive normocephalic and atraumatic; negative cyanosis of lips/distal nose Eyes Eye: Positive clear conjunctiva; negative nystagmus or scleral abnormality Ears Ear: Positive hearing normal and external ears normal; negative hard of hearing Nose Nose: Positive external nose normal and no nasal discharge; negative epistaxis Mouth Mouth: Positive post nasal drip, oral mucosae normal, no lesions, posterior oropharynx is adequate and good dentition; negative malodorous breath or oral thrush present Mallampati Score: II: Mallampati Score Neck Neck: Positive normal visual inspection, full ROM and trachea midline; negative lymphadenopathy, JVD or tender Chest Wall Chest: Positive normal inspection of the chest and symmetric chest movement; negative increased A/P diameter Resp lung sounds: Positive clear to auscultation, good air exchange, normal expiratory time and normal respiratory effort; negative diminished, wheezes, rhonchi, rales, dullness to percussion or wheeze present on forced exhalation Cardio Cardiac: Positive regular rate, regular rhythm, S1 normal and S2 normal; negative murmur GI GI: Positive normal to inspection; negative distended Genitourinary: Positive deferred Musc Musculoskeletal: Positive steady gait and ROM normal; negative kyphosis or scoliosis Skin Pulmonary Skin Exam: Positive intact; negative rash Pulses Pulse: Yes pulses normal x4 extremities Extremities Extremities: Yes capillary refill normal, No clubbing, No cyanosis, No edema Neuro Neurologic: Yes conversant, Yes no focal neuro deficits, Yes normal concentration, Yes understands questions, Yes cooperative, Yes normal cognition, Yes normal coordination, No tremor Lymph Lymphatic: No lymphadenopathy, No tenderness, No cervical adenopathy Psych Appearance: Positive grossly normal, eye contact and well kempt Mental Status: Positive mental status grossly normal Mood: Positive congruent mood Affect: Positive normal affect Immunizations Pneumovax 23 Performing Provider: EDWARD Alexandre Administered by: Kirstin Yates on 08/25/18 11:34 Dose Route Admin Location Lot Number Expiration Date NDC Veteran Appeals Reviewer 0.5 mL IM Right Deltoid [id number] 10/11/19 9885-2776-70 [employer] VIS Given Date VIS Publication Date 08/25/18 05/01/15 Eligibility Eligibility Date Coding Level of Care Code Off vis,est,level 4 Diagnoses Moderate persistent asthma without complication J45.40 Asthma severity: moderate Asthma persistence: persistent Asthma complication type: uncomplicated Tobacco abuse Z72.0 08/26/18 [id number] <Electronically signed by Carmen Purvis GRAVEL MACHINE OPERATOR-C> Date Carmen Purvis GRAVEL MACHINE OPERATOR-C Cosigner Signature: Date (if applicable) CC: Ila Pacheco MD CBC W/DIFF, AUTOMATED Collected: 08/25/2018 Status: F Source: [place] 11:48 AM [facility] REPOSITORY TYPE CODE TESTS RESULT OUT OF RANGE REFERENCE UNITS LAB L100.1000 4.4-11.0 K/mm3 Normal WBC 8.0 LAB L100.1200 4.6-6.2 M/mm3 Low RBC 4.57 LAB L100.1300 13.0-16.5 g/dl Normal HGB 15.0 LAB L100.1400 40-54 % Normal HCT 43.6 LAB L100.1500 80-94 fL High MCV 95.4 LAB L100.1600 27.0-32.0 pg High MCH 32.8 LAB L100.1700 32-36 g/gl Normal MCHC 34.4 LAB L100.1810 11.6-14.6 % Normal RDW CV 12.9 LAB L100.1820 35.1-43.9 fl High RDW SD 44.6 LAB L100.1900 150-450 K/mm3 Normal PLT 251 LAB L100.2000 6.2-12.0 fl Normal MPV 9.6 LAB L100.2100 47-70 % Normal NEUT% 64.2 LAB L100.2200 19-41 % Normal LY% 27.5 LAB L100.2300 0-10 % Normal MONO% 7.0 LAB L100.2400 0-5 % Normal EO% 0.9 LAB L100.2500 0-1 % Normal BASO% 0.4 LAB L100.2550 0.0-0.9 % Normal IM GRAN % 0.000 Result Comment: IG% - Immature Granulocytes (promyelocytes, myelocytes and metamyelocytes) > 1% indicates that a LEFT SHIFT is Present. LAB L100.2620 2.0-7.7 X10 3/uL Normal Absolute Neut 5.1 LAB L100.2720 0.83-4.51 X10 3/ul Normal Absolute Lymph 2.20 Performed By: #### L100.0100 #### [facility] [address] [place], [address] ALLERGEN, MINI-RAST Collected: 08/25/2018 Status: F Source: [place] 11:48 AM [facility] REPOSITORY TYPE CODE TESTS RESULT OUT OF REFERENCE UNITS RANGE LAB L5500.1001 Class I kU/L D PTERONYSSINUS High 0.45 LAB L5500.1002 Class I kU/L D FARINAE MITE High 0.50 LAB L5500.2001 Class II kU/L CAT HAIR/DANDER High 0.78 LAB L5500.2002 Class III kU/L DOG EPITHELIA High 2.35 LAB L5500.4002 Class I kU/L BERMUDA GRASS High 0.46 LAB L5500.4008 Class IV kU/L [place], [place] High 4.78 LAB L5500.5006 Class IV kU/L A. ALTERNATA High 5.61 LAB L5500.6007 Class 0 kU/L OAK, WHITE Normal <0.10 LAB L5500.6008 Class I kU/L ELM,AMER WHITE High 0.46 LAB L5500.7001 Class III kU/L RAGWEED SH/COM High 2.34 LAB L5500.7009 Class 0 kU/L PLANTAIN,ENGLSH Normal <0.10 LAB L5500.7150 Class 0/I kU/L Mouse Urine High 0.16 Result Comment: Performed at: [address] [id number] Modeling Director: Henok Ordaz MD, Phone: [phone] LAB L5500.2560 . Normal RAST COMMENT Comment Result Comment: Levels of Specific IgE Class Description of Class ----- < 0.10 0 Negative 0.10 - 0.31 0/I Equivocal/Low 0.32 - 0.55 I Low 0.56 - 1.40 II Moderate 1.41 - 3.90 III High 3.91 - 19.00 IV Very High 19.01 - 100.00 V Very High >100.00 Very High Performed By: #### L5500.0300 #### [facility] (refer to report for specific site) refer to report for address and phone number IMMUNOGLOBULIN E Collected: 08/25/2018 Status: F Source: [place] 11:48 AM [facility] REPOSITORY TYPE CODE TESTS RESULT OUT OF REFERENCE UNITS RANGE LAB L3200.1600 0-100 IU/mL High IMMUNO E 369 Result Comment: Performed at: - [facility] [id number] Modeling Director: Henok Ordaz MD, Phone: [phone] Performed By: #### L3200.1600, L3500.3600 #### [facility] (refer to report for specific site) refer to report for address and phone number ASPERGILLUS ANTIBODIES Collected: 08/25/2018 Status: F Source: [place] 11:48 AM [facility] REPOSITORY TYPE CODE TESTS RESULT OUT OF RANGE REFERENCE UNITS LAB L3500.3700 Neg:<1:1 Asp. Normal fumigatus Negative LAB L3500.3800 Neg:<1:1 Asp. Normal flavus Negative LAB L3500.3900 Neg:<1:1 Asp. Normal niger Negative Performed By: #### L3200.1600, L3500.3600 #### [facility] (refer to report for specific site) refer to report for address and phone number PULMONARY FUNCTION Observed: 08/15/2018 Status: F Source: [place] TEST 11:57 AM [facility] REPOSITORY [facility] Pulmonary Services/Neurology [address] [place] [address] MR#: [id number] Acct: [id number] Name: KIKO QUINN Rep #: [id number] : 1960 58 From: Raymond Ferreira DO Referring Dr: Raymond Ferreira D.O. Status: REG CLI Ordering Dr: Date: Location: [facility] Sex: M C INTRODUCTION: The patient is a 58-year-old male that presents for pulmonary function studies secondary to a diagnosis of shortness of breath. Respiratory therapy reports good patient effort. Bronchodilators were used during testing. INTERPRETATION: Forced expiration spirometry demonstrates the presence of a moderate large airways obstructive ventilatory defect. There was a significant response to aerosolized bronchodilators noted, based upon change in FEV1. Spirograms are of good quality do not plateau indicating slow emptying of the lungs. Body plethysmography was performed and reveals lung volumes to be within normal limits. Diffusing capacity by single breath CO is elevated at 141% of predicted. IMPRESSION: These pulmonary function studies demonstrate the presence of a reversible moderate large airways obstructive ventilatory defect. There are no previous pulmonary function studies available for comparison. 08/15/181156 <Electronically signed by Raymond Ferreira DO> Date Raymond Ferreira DO CC: Ila Pacheco MD; Raymond Ferreira D.O. Date Dictated: 08/15/181154 Date Transcribed: 08/15/181154 Computer Systems Architect: DB Signed LOW DOSE CT LUNG Observed: 08/05/2018 Status: F Source: [place] SCREENING 7:46 AM [facility] REPOSITORY [facility] Imaging Services [address] [place] [address] Lung Screening MR#: [id number] Acct: [id number] Name: KIKO QUINN Rep #: [id number] : 1960 M 58 From: Maddi Marie MD PCP: Ila Pacheco MD Status: REG CLI Study: Low Dose CT Lung Screening Date of Exam: 08/05/18 Exam# [id number] Ordering Dr: Raymond Ferreira DO STUDY: LOW DOSE CT LUNG CANCER SCREENING REASON FOR EXAM: Male, 58 years old. Tobacco use, smokes 1/4 pack per day x 30 years. Hx hypertension. RADIATION DOSAGE (If Supplied By Facility): CTDIvol = ( 2.55 ) mGy, DLP = ( 85.51 ) mGycm TECHNIQUE: No contrast was administered. Low dose technique was utilized (average mAS-38 and kVp 120). 1.25 mm axial source images with a slice interval of 1.25- mm were reconstructed in lung windows. 2.5 mm axial source images with a slice interval of 2.5-mm were reconstructed in lung windows. 5.0 mm axial source images with a slice interval of 5.0-mm were reconstructed in soft tissue windows. Nodule measured using lung windows on PACS and/or independent workstation with automated measurement of minimum and maximum diameter. Nodule measurement reported as average diameter rounded to the nearest whole number. Growth is defined as an increase ins size of greater than 1.5 mm. COMPARISON: None. NODULES: Subsegmental atelectases are noted in the right and left lung bases. There is a calcified granuloma in the lingula measures approximately 4 mm. There is no demonstrated pleural abnormality. Normal heart and pericardium. Normal mediastinum. Normal hilar regions. Normal unenhanced pulmonary arteries. Normal aorta arch and descending thoracic aorta. Normal osseous structures. There is no demonstrated abnormality of the visualized upper abdomen. CT/Low Dose CT Lung Screening IMPRESSION: Lung-RADS category 2. Benign findings. Recommendation: Routine screening CT scan in one year. IMPORTANT NOTES FOR USE: ACR Lung-RADS Version 1.0 Assessment Categories Release Date: January 22, 2014 Category: Coded 0-4 bases on nodule(s) with highest degree of suspicion. Negative screen is defined as categories 1 and 2; a positive screen is defined as categories 3 and 4. Category 3 and 4A nodules that are unchanged on interval CT should be coded as category 2, and individuals returned to screening in 12 months. Category 4X: Category 3 or 4 nodules with additional imaging findings that increase the suspicion of lung cancer, such as spiculation, GGN that doubles in size in 1 year, enlarged lymph notes, etc. Category Modifiers: S (significant finding unrelated to lung cancer) and C (prior history of treated lung cancer) may be added to the 0-4 Lung-RADS Electronically Signed: Maddi Marie MD at 8:04 EST Tel , Service support , CC: Ila Pacheco MD; Raymond Ferreira D.O. Computer Systems Architect: Signed PULMONARY VISIT REPORT Observed: 07/14/2018 Status: F Source: [place] 1:20 PM [facility] REPOSITORY [facility] [place] [address] [place] [address] OFFICE VISIT Date of Service: 07/14/18 MR#: [id number] Acct: [id number] Name: KIKO QUINN Rep #: [id number] : 1960 Provider: Raymond Ferreira D.O. Age/Sex: 58/M [facility] Status: Signed Assessment AND Plan 1. Shortness of breath R06.02 Plan The patient reports the presence of exertional shortness of breath, which is felt to be potentially related to underlying obstructive lung disease, given the patient's extensive smoking history. Given this, the patient will be referred to the pulmonary lab to undergo dedicated pulmonary function testing. He is currently prescribed Flovent and as needed albuterol. No inhaler changes will be made today until PFTs have been completed. Patient will have short interval follow-up with our nurse practitioner to review the results of his testing. Depending on the results of his PFTs, additional recommendations will be forthcoming pertaining to his inhaler regimen. Orders Orders: 2. Nicotine dependence, cigarettes, uncomplicated F17.210 Plan I personally spent 5 minutes discussing the deleterious effects of ongoing tobacco use with the patient, including modalities which could be utilized to achieve a smoke-free lifestyle. The patient reports that he is currently making strides towards cutting back and eventually quitting. Given the patient's age and smoking history, recommend low-dose CT scan at this time. Orders Orders: Plan Detail Follow Up 6 Weeks (CSM) HPI HPI Comments Details: The patient is a 58-year-old male who presents to the clinic today in referral for evaluation of shortness of breath/COPD. The patient is currently being followed by Dr. Ila Pacheco at [facility]. The patient reports that he was admitted to the hospital in March with shortness of breath. He underwent a cardiac workup which was negative. It was at that time that the etiology for shortness of breath was suspected to be COPD. The patient does report having been diagnosed with asthma as a child. However, he eventually outgrew his symptoms. He is a current smoker of 0.5 packs/day, having previously smoked upwards of 1 pack/day x 30 years. The patient has baseline, exertional dyspnea, along with occasional wheezing and nonproductive cough. He denies the presence of chest tightness. He is currently prescribed Flovent and as needed albuterol. However, he does report that he only typically utilizes his Flovent on an as-needed basis. He is currently utilizing his rescue inhaler on average twice daily. The patient does report a history of seasonal allergic rhinitis. 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 He has lived in [place] most of his life. He did not grow up in a smoking household. His weight has remained stable. His appetite is good. He denies the presence of hemoptysis. He has never undergone formal pulmonary function testing previously. He denies fevers, chills or night sweats. Intake Vital Signs07/14/18 Height 5 ft 9 in 07/14/18 Weight: 172 lb Intake Visit Reasons: Shortness of breath Medical Biller Required: No Accompanied by: Self Is patient in pain?: No Allergies peanut Allergy (Severe, Verified 07/14/18 06:51) Anaphylaxis Sulfa (Sulfonamide Antibiotics) Allergy (Severe, Verified 07/14/18 06:51) Anaphylaxis NUTS Allergy (Severe, Uncoded 07/14/18 06:51) Anaphylaxis seasonal allergies Allergy (Mild, Uncoded 07/14/18 06:51) Other Medications Losartan Potassium [Cozaar] 100 mg PO DAILY 08/22/15 [History Confirmed 07/14/18] Albuterol Inhaler [Ventolin Hfa] 1 - 2 puff INHALATION Q4H PRN PRN #1 inhaler 11/10/15 [Rx Confirmed 07/14/18] Atorvastatin Calcium [Lipitor] 20 mg PO QHS 04/18/18 [History Confirmed 07/14/18] Fexofenadine/Pseudoephedrine [Meghana-D 24 Hour Tablet] 1 ea PO DAILY 04/18/18 [History Confirmed 07/14/18] Montelukast [Singulair] 10 mg PO QHS 04/18/18 [History Confirmed 07/14/18] Prednisone See Taper PO DAILY #30 tab 04/19/18 [Rx] cetirizine 10 mg capsule 10 mg PO DAILY 07/11/18 [History Confirmed 07/14/18] fluticasone 220 mcg/actuation HFA aerosol inhaler 2 puff INHALATION Q12H g 07/11/18 [History Confirmed 07/14/18] [facility] Medical History COPD (chronic obstructive pulmonary disease) (Chronic) HTN (hypertension) (Chronic) High cholesterol (Chronic) Seasonal allergies (Chronic) Social History current occupational status: employed pets and animals: Yes pets and animals: dog(s) Smoking Status: Current every day smoker alcohol intake: current alcohol intake frequency: 3 or more drinks per day Alcohol type: beer Review of Systems Const CONSTITUTIONAL: Negative anorexia, body ache, chills, daytime sleepiness, fever(s), night sweats, oral thrush, stops breathing during sleep, weight loss, sleeping in chair, fatigue, weight loss, weight gain, frequent colds, seasonal allergies, other, headache(s) or orthopnea EETM Ear Nose Throat Mouth: Positive hearing normal; negative hard of hearing, hoarseness, dry mouth in morning, change in vision, itchy eyes, eye pain, swallowing Difficulty, ear pain, nose bleed, headache(s), mouth pain, nasal congestion, nasal discharge, post nasal drip, sinus pain, sinus pressure, sore throat or other Cardio Cardiovascular: Negative chest pain, chest pain at rest, chest pain with activity, irregular heart rhythm, edema, shortness of breath when lying down, palpitations, murmur or other Resp Respiratory: Positive as per HPI, shortness of breath shortness of breath: Positive with activity, wheezing and inhalers; negative pain with cough, chest congestion, cough, chest tightness, pain on inspiration, increase use of rescue inhalers, snoring, apnea or other Gastro Gastrointestional: Negative bloody stools, change in appetite, difficulty swallowing, reflux, hematemesis, melena stool, loose stool, constipation or other Genitourinary: Negative blood in urine, nocturia, pain with urination or other Musc Musculoskeletal: Negative body pain, back pain, neck pain or other Skin/Breast Skin/Breast: Negative dry skin, itching, rash, unusual bruising, breast lump or other Neuro Neurological: Negative restless legs, confusion, weakness or other Psych Psychocological: Negative abnormal sleep pattern, anxiety, thoughts of hurting self/others, hopelessness or other Lymph Lymphatic: Negative easy bleeding, easy bruising, swollen lymph nodes or other Exam Const Constitutional: Positive conversant, cooperative, in no acute respiratory distress, well developed, well nourished and good hygiene Head Head: Positive normocephalic and atraumatic; negative cyanosis of lips/distal nose Eyes Eye: Positive clear conjunctiva; negative nystagmus or scleral abnormality Ears Ear: Positive hearing normal; negative hard of hearing Nose Nose: Positive external nose normal; negative epistaxis Mouth Mouth: Positive oral mucosae normal, no lesions and posterior oropharynx is adequate; negative post nasal drip Mallampati Score: II: Mallampati Score Neck Neck: Positive normal visual inspection and trachea midline; negative lymphadenopathy Chest Wall Chest: Positive symmetric chest movement Normal AP diameter. Resp lung sounds: Positive clear to auscultation and good air exchange; negative wheezes, rhonchi or rales Cardio Cardiac: Positive regular rate, regular rhythm, S1 normal and S2 normal; negative murmur, rub or gallop GI GI: Positive normal bowel sounds Soft without distention Genitourinary: Positive deferred Musc Musculoskeletal: Positive steady gait Skin Pulmonary Skin Exam: Positive intact; negative rash, lesion or ulcers Pulses Pulse: Yes Pedal pulses present: Extremities Extremities: No clubbing, No cyanosis, No edema Neuro Neurologic: Yes conversant, Yes no focal neuro deficits, Yes cooperative Lymph Lymphatic: No lymphadenopathy Psych Appearance: Positive grossly normal Mental Status: Positive mental status grossly normal Mood: Positive congruent mood Affect: Positive normal affect Pulmonary Procedure Smoking Cessation Education: Yes education provided, 3-10 minutes and continue to encourage smoking cessation Coding Level of Care Code Off vis,new,level 4 Diagnoses Shortness of breath R06.02 Nicotine dependence, cigarettes, uncomplicated F17.210 07/14/18 1320 <Electronically signed by Raymond Ferreira DO> Date Raymond Ferreira DO Cosigner Signature: Date (if applicable) CC: Ila Pacheco MD 12 LEAD ELECTROCARDIOGRAM Observed: 04/29/2018 Status: F Source: [place] 8:32 AM [facility] [place] REPOSITORY [facility] Cardiovascular Services [address] [place] [address] 12 Lead EKG 04/19/18 0110 MR#: [id number] Acct: [id number] Name: KIKO QUINN Rep #: [id number] : 1960 58 From: Francisco Barragan MD Attending Dr: Triston Gibbs DO Status: DIS CALISTA Ordering Dr: Francisco Andrews MD Date: 04/19/18 Location: MS3 Sex: M C Admitted: 04/18/18 Test Reason : AM EKG Blood Pressure : / mmHG Vent. Rate : 070 BPM Atrial Rate : 070 BPM P-R Int : 156 ms QRS Dur : 104 ms QT Int : 398 ms P-R-T Axes : 043 021 026 degrees QTc Int : 429 ms Normal sinus rhythm Low voltage QRS (limb leads) Confirmed by YUNG KAMARA, FRANCISCO ([id number]), television news video editor JOEL MARIN ([id number]) on 04/29/2018 8:32:02 AM Referred By: SHAE Confirmed By:FRANCISCO BARRAGAN MD 04/29/18 0832 Date Francisco Barragan MD CC: Ila Pacheco MD; Triston Gibbs DO; Francisco Andrews MD Signed 12 LEAD ELECTROCARDIOGRAM Observed: 04/22/2018 Status: F Source: [place] 1:10 PM [facility] REPOSITORY [facility] Cardiovascular Services [address] [place] [address] 12 Lead EKG 04/18/18 1635 MR#: [id number] Acct: [id number] Name: KIKO QUINN Rep #: [id number] : 1960 58 From: Francisco Barragan MD Attending Dr: Triston Gibbs DO Status: DIS CALISTA Ordering Dr: Aleisha Wayne DO Date: 04/18/18 Location: MS3 Sex: M C Admitted: 04/18/18 Test Reason : Blood Pressure : / mmHG Vent. Rate : 086 BPM Atrial Rate : 086 BPM P-R Int : 160 ms QRS Dur : 100 ms QT Int : 344 ms P-R-T Axes : 025 -13 016 degrees QTc Int : 411 ms Normal sinus rhythm Normal ECG Confirmed by YUNG KAMARA, FRANCISCO ([id number]), television news video editor JOEL MARIN ([id number]) on 04/22/2018 1:10:29 PM Referred By: NINA Confirmed By:FRANCISCO BARRAGAN MD 04/22/18 1310 Date Francisco Barragan MD CC: Ila Pacheco MD; Triston Gibbs DO; Aleisha Wayne DO Signed DISCHARGE SUMMARY Observed: 04/19/2018 Status: F Source: [place] 8:19 PM [facility] REPOSITORY [facility] Medical Records Department [address] [place] [address] Discharge Summary 04/19/18 1035 MR#: [id number] Acct: [id number] Name: KIKO QUINN Rep #: [id number] : 1960 58 From: Rylie LEON PCP: Ila Pacheco MD Status: DIS CALISTA Y Location: [place] [address] ADDENDUM by Triston Gibbs DO on 04/19/18 at 2019 Code Visit Please correct #1 diagnosis to read: #1 acute exacerbation of COPD OBSV E AND M: [id number] Observation care discharge 04/19/18 2019 <Electronically signed by Triston Gibbs DO> Date Triston Gibbs DO cc: EDWARD Alamo; Ila Pacheco MD; Triston Gibbs DO * Signed ADDENDUM by EDWARD Alamo on 04/19/18 at 1047 Code Visit Discharged home in stable condition. Discharge time spent 35 minutes. 04/19/18 1047 <Electronically signed by Rylie LEON> Date Rylie Alamo cc: EDWARD Alamo; Ila Pacheco MD; Triston Gibbs DO * Signed Addendum entered and electronically signed by EDWARD Wilson 04/19/18 10:47: Code Visit Discharged home in stable condition. Discharge time spent 35 minutes. Original Note: Discharge Date and Diagnosis Date of Admission: 04/18/18 Date of Discharge: 04/19/18 - Primary Discharge Diagnosis Active and Suspected Problems 1. Suspected exacerbation of COPD 2. Hypertension 3. Hyperlipidemia 4. Seasonal allergies Hospital Course and Treatment Imaging Results: Diagnostic Data Chest X-Ray 04/18/18 16:35 IMPRESSION: No acute findings Electronically Signed: Drew Santoro DO at 16:48 EDT Tel , Service support , Operations: None Procedures: Stress test Summary of Care Provided: The patient is a 58 year old M admitted 04/18/2018 due to shortness of breath. He has a past medical history of hypertension, hyperlipidemia, and seasonal allergies. Patient states he has been seeing his primary care physician due to worsening seasonal allergies since springtime. He reports wheezing and shortness of breath with exertion. He denies chest pain. Troponin negative. Patient underwent nuclear stress test which was negative for ischemia. EKG without evidence of ischemia. Cardiac etiology ruled out. Patient has a 40-hcku-dtes smoking history. Suspect exacerbation of COPD. Recommend follow-up with primary care physician in 1 week. Recommend establishing with pulmonary medicine and completing PFTs and further evaluation for COPD. Patient has albuterol inhaler at home which he uses as needed for shortness of breath. Patient will be discharged on prednisone taper. Other chronic medical conditions are stable at this time. General: Alert, Oriented x3, Cooperative, No apparent distress HEENT: Atraumatic, PERRLA, EOMI, Normocephalic Oral: Moist Mucosa Neck: Supple, No JVD, Negative Carotid Bruits Lungs: Diminished, scattered expiratory wheezing Cardiovascular: Regular rate, Regular Rhythm, Normal S1, Normal S2, No murmurs Abdomen: Bowel Sounds Present, Soft, Non Tender, Non-Distended Extremities: No clubbing, No cyanosis, No edema, Capillary Refill Less than 3 Seconds Skin: No rashes, No breakdown Musculoskeletal: No Tenderness to Palpation of Joints or Extremities Lymphatic: No Cervical, Supraclavicular, or Inguinal Adenopathy Neurological: Cranial nerves II-XII grossly intact Psych/Mental Status: Normal Affect, Appropriate, Alert and oriented to time, place, person, mood and affect Patient seen exam prior to discharge. Physical assessment as noted above. Patient stable for discharge home with the follow-up recommendations as noted above. This patient was seen by EDWARD Wilson under the supervision of Dr. Gibbs. Discharge Activity: Return to Normal Activity Call your doctor if you observe: Shortness of breath, Dizziness, Fainting spells, Chest pain Home Medications: Medications to take at Discharge Losartan Potassium [Cozaar] 100 mg PO DAILY 08/22/15 Albuterol Inhaler [Ventolin Hfa] 1 - 2 puff INHALATION Q4H PRN PRN #1 inhaler 11/10/15 Atorvastatin Calcium [Lipitor] 20 mg PO QHS 04/18/18 Fexofenadine/Pseudoephedrine [Meghana-D 24 Hour Tablet] 1 each PO DAILY 04/18/18 Montelukast [Singulair] 10 mg PO QHS 04/18/18 Prednisone See Taper PO DAILY #30 tab 04/19/18 Following Prescrptions Were Given to Patient: Prednisone See Taper PO DAILY #30 tab Primary Care Physician: Ila Pacheco MD [Primary Care Provider] - Please follow up with your Primary Care Physician in: 1 Week Please Follow Up With: Anthony Zavaleta MD - Or Dr. Ferreira, Pulmonary Medicine When: 2-4 Weeks Medical Necessity - Tobacco Use Smoking Status: Current every day smoker Tobacco Use: Cigarettes Meaningful Use Info Meaningful Use Diagnoses (Choose all that apply): None applicable 04/19/18 1047 <Electronically signed by Rylie LEON> Date Rylie Alamo GRAVEL MACHINE OPERATOR-C Cosigner Signature (if applicable): Date CC: GRAVEL MACHINE OPERATOR-Dora Alamo; Ila Pacheco MD; Triston Gibbs DO Signed STRESS REPORT Observed: 04/19/2018 Status: F Source: [place] 4:15 PM [facility] REPOSITORY [facility] Cardiovascular Services [address] [place] [address] MR#: [id number] Acct: [id number] Name: KIKO QUINN Rep #: [id number] : 1960 58 From: Francisco Barragan MD Primary Care: Ila Pacheco MD Status: DIS CALISTA Ordering Dr: Sex: Santana John Stress Test Report Date: 04/19/2018 Procedure: Exercise tolerance test/imaging study Indications: Chest pain Consent: Per the patient Procedure: The patient exercised on a Anthony protocol for 9 minutes completing Stage 3 achieving a peak heart rate of 151 bpm (92 % predicted maximal heart rate) with a peak blood pressure 160/86 mmHg and a peak MET capacity of 10 METs. The baseline ECG demonstrated normal sinus rhythm. The peak exercise ECG demonstrated no obvious ECG changes. There was an isolated PAC during exercise and recovery. The functional capacity was considered good. There was no complaint of chest discomfort during exercise or recovery. The examination was discontinued secondary to dyspnea and leg discomfort. Impression: 1. Technically adequate (percent predicted maximal heart rate greater than 85%) exercise tolerance test 2. Peak exercise ECG demonstrated no obvious ECG changes 3. There was an isolated PAC during exercise and recovery. 4. Nuclear images pending Myocardial perfusion imaging study: Technique: The patient was injected with 11.6 mCi of technetium 99m Cardiolite and subsequently rest SPECT Cardiolite nuclear imaging was obtained in the horizontal long, vertical long, and short axis views. The patient exercised on a Anthony protocol for 9 minutes completing Stage 3 achieving a peak heart rate of 151 bpm (92 % predicted maximal heart rate) with a peak blood pressure 160/86 mmHg and a peak MET capacity of 10 METs. The patient was injected with 33.3 mCi of technetium 99m Cardiolite and subsequently stress SPECT Cardiolite nuclear imaging was obtained in the horizontal long, vertical long, and short axis views. A gated Cardiolite study at peak stress was obtained. Interpretation: Rest and stress SPECT Cardiolite nuclear imaging status post realignment, normalization, and attenuation correction, demonstrates wall area of subtle diminished tracer uptake near the thecal segments without significant change between rest and stress. There is end systolic thickening and brightening. The gated Cardiolite study demonstrates myocardial thickening and inward wall motion. The reported LVEF is 61 %. Impression: 1. Rest and stress SPECT Cardiolite nuclear imaging demonstrate myocardial perfusion changes appearing compatible with physiologic apical thinning with no myocardial perfusion changes consider diagnostic for associated stress-induced myocardial ischemia or previous myocardial injury/infarction. 2. The gated Cardiolite study reports an LVEF of 61 %. This note was generated with [employer]enthackr software. It may contain incorrect words, spelling, and punctuation that were not noted in checking the note before signing. 04/19/18 1615 <Electronically signed by Francisco Barragan MD> Date Francisco Barragan MD CC: Ila Pacheco MD; Triston Gibbs DO Date Dictated: 04/19/181609 Date Transcribed: 04/19/181609 Computer Systems Architect: PM Signed DISCHARGE INSTRUCTION Observed: 04/19/2018 Status: F Source: [place] 10:35 AM [facility] REPOSITORY [facility] Medical Records Department [address] [place] [address] Instructions for Home/Discharge Instructions 04/19/18 1034 MR#: [id number] Acct: [id number] Name: KIKO QUINN Rep #: [id number] : 1960 58 From: Rylie LEON PCP: Ila Pacheco MD Status: ADM CALISTA - Discharge Diagnoses Current Active Problems: Current Active and Chronic Problems Shortness of breath (Acute) You will use the following diet at home:: No restrictions Discharge Activity: Return to Normal Activity Call your doctor if you observe: Shortness of breath, Dizziness, Fainting spells, Chest pain Allergies/Adverse Reactions: Allergies Sulfa (Sulfonamide Antibiotics) Allergy (Severe, Verified 08/27/15 16:43) Anaphylaxis NUTS Allergy (Uncoded 11/10/15 18:48) Shortness of breath Medications to take at Discharge Losartan Potassium [Cozaar] 100 mg PO DAILY 08/22/15 Albuterol Inhaler [Ventolin Hfa] 1 - 2 puff INHALATION Q4H PRN PRN #1 inhaler 11/10/15 Atorvastatin Calcium [Lipitor] 20 mg PO QHS 04/18/18 Fexofenadine/Pseudoephedrine [Meghana-D 24 Hour Tablet] 1 each PO DAILY 04/18/18 Montelukast [Singulair] 10 mg PO QHS 04/18/18 Prednisone See Taper PO DAILY #30 tab 04/19/18 The following prescriptions were given: Prednisone See Taper PO DAILY #30 tab Primary Care Physician: Ila Pacheco MD [Primary Care Provider] - Please follow up with your Primary Care Physician in: 1 Week Test Results: Test results from this visit will be discussed in further detail at your follow-up appointment, if applicable. Please Follow Up With: Anthony Zavaleta MD - Or Dr. Ferreira, Pulmonary Medicine When: 2-4 Weeks Proposed Discharge Date: 04/19/18 04/19/18 1035 <Electronically signed by Rylie LEON> Date Rylie LEON CC: Ila Pacheco MD CBC W/DIFF, AUTOMATED Collected: 04/19/2018 Status: F Source: [place] 10:00 AM [facility] REPOSITORY TYPE CODE TESTS RESULT OUT OF RANGE REFERENCE UNITS LAB L100.1000 4.4-11.0 K/mm3 Normal WBC 6.3 LAB L100.1200 4.6-6.2 M/mm3 Low RBC 4.24 LAB L100.1300 13.0-16.5 g/dl Normal HGB 13.7 LAB L100.1400 40-54 % Normal HCT 40.9 LAB L100.1500 80-94 fL High MCV 96.5 LAB L100.1600 27.0-32.0 pg High MCH 32.3 LAB L100.1700 32-36 g/gl Normal MCHC 33.5 LAB L100.1810 11.6-14.6 % Normal RDW CV 13.6 LAB L100.1820 35.1-43.9 fl High RDW SD 48.0 LAB L100.1900 150-450 K/mm3 Normal PLT 215 LAB L100.2000 6.2-12.0 fl Normal MPV 9.6 LAB L100.2100 47-70 % Normal NEUT% 55.7 LAB L100.2200 19-41 % Normal LY% 32.7 LAB L100.2300 0-10 % Normal MONO% 7.7 LAB L100.2400 0-5 % Normal EO% 3.2 LAB L100.2500 0-1 % Normal BASO% 0.5 LAB L100.2550 0.0-0.9 % Normal IM GRAN % 0.200 Result Comment: IG% - Immature Granulocytes (promyelocytes, myelocytes and metamyelocytes) > 1% indicates that a LEFT SHIFT is Present. LAB L100.2620 2.0-7.7 X10 3/uL Normal Absolute Neut 3.5 LAB L100.2720 0.83-4.51 X10 3/ul Normal Absolute Lymph 2.05 Performed By: #### L100.0100 #### [facility] [address] [place], [address] TROPONIN-I Collected: 04/19/2018 Status: F Source: [place] 10:00 AM [facility] REPOSITORY Order Comment: 'TROP' Serial specimen #1, #2 or #3: 3 TYPE CODE TESTS RESULT OUT OF RANGE REFERENCE UNITS LAB L501.4010 <0.045 ng/mL Normal < 0.015 TROPONIN-I Result Comment: TROPONIN-I EXPECTED VALUES <0.045 Negative 0.045 - 0.590 Consistent with Cardiac Damage > OR = 0.600 Critical Value Not every elevated troponin is indicative of CT. These values should be used with clinical judgement in examining the patient's clinical picture for diagnosis. To establish a diagnosis of CT versus myocardial injury, there must be a demonstrated rise and/or fall in the troponin values, in addition to ischemic symptoms, EKG changes, new regional wall motion abnormality, and/or angiographical evidence. PLEASE NOTE: REFERENCE RANGES EDITED 18 Performed By: #### L501.4010 #### [facility] [address] [place], [address] PROTHROMBIN TIME W/INR Collected: 04/19/2018 Status: F Source: [place] 10:00 AM [facility] REPOSITORY Order Comment: Comments: stress test Comments: for stress test TYPE CODE TESTS RESULT OUT OF RANGE REFERENCE UNITS LAB L300.4150 11.7-14.9 SECONDS Normal PROTIME 14.0 LAB L300.4200 Normal INR 1.1 Performed By: #### L300.3900, L300.4310 #### [facility] [address] [place], [address] PARTIAL THROMBOPLAST Collected: 04/19/2018 Status: F Source: [place] TIME 10:00 AM [facility] REPOSITORY Order Comment: Comments: stress test Comments: for stress test TYPE CODE TESTS RESULT OUT OF RANGE REFERENCE UNITS LAB L300.4310 24.1-36.2 Seconds Normal PTT 26.4 Performed By: #### L300.3900, L300.4310 #### [facility] [address] [place], [address] BASIC METABOLIC Collected: 04/19/2018 Status: F Source: [place] PROFILE (BMP) 10:00 AM [facility] REPOSITORY TYPE CODE TESTS RESULT OUT OF RANGE REFERENCE UNITS LAB L501.0100 74-106 mg/dL Normal GLU 97 Result Comment: Please note revised GLUCOSE reference range effective 2017. LAB L501.1000 7-18 mg/dL Normal BUN 9 LAB L501.1100 0.70-1.30 mg/dL Normal CREAT,SERUM 0.90 Result Comment: The validity of the calculated GFR AND GFRAA in patients over 70 years has not been determined. Clinical correlation is essential. LAB L501.1110 >60 mL/min Normal EST GFR 93 Result Comment: Non- GFR Calc LAB L501.1115 >60 mL/min Normal EST GFR - AA 113 Result Comment: GFR Calc LAB L501.1255 ml/min Normal Estimated CRCL 91.65 LAB L501.1300 10-20 RATIO Normal BUN/CRE 10.0 LAB L501.2200 8.5-10 mg/dL Normal .1 CA 8.5 LAB L501.5300 136-14 mmol/L Normal 5 NA 143 LAB L501.5600 3.5-5. mmol/L Normal 1 K 4.3 LAB L501.5900 98-107 mmol/L High CL 109 LAB L501.6100 21.0-3 mmol/L Normal 2.0 CO2 27.0 LAB L501.6200 5-15 Normal GAP 7 Performed By: #### L500.2500, L500.4100 #### [facility] [address] [place], [place], [id number] LIPID PROFILE Collected: 04/19/2018 Status: F Source: [place] 10:00 AM [facility] REPOSITORY TYPE CODE TESTS RESULT OUT OF RANGE REFERENCE UNITS LAB L501.4900 200 mg/dL Normal CHOL 145 Result Comment: <200 mg/dL Desirable 200-240 mg/dL Borderline >240 mg/dL High Risk LAB L501.5000 mg/dL Normal TRIG 103 Result Comment: The drugs N-Acetylcysteine and Metamizole may falsely depress this assay. Serum Triglycerides Reference Interval Normal <150 mg/dL Borderline high 150 - 199 mg/dL High 200 - 499 mg/dL Very High > or = 500 mg/dL LAB L501.6400 mg/dL Normal HDL 47 Result Comment: The drugs N-Acetylcysteine and Metamizole may falsely depress this assay. Reference Range HDL <40 mg/dL Low HDL Cholesterol HDL >or= 60 mg/dL High HDL Cholesterol LAB L501.6500 0-130 mg/dL Normal LDL 77 LAB L501.6600 5-40 mg/dL Normal VLDL 21 Performed By: #### L500.2500, L500.4100 #### [facility] [address] [place], [place], [address] TROPONIN-I Collected: 04/19/2018 Status: F Source: [place] 4:05 AM [facility] REPOSITORY Order Comment: 'TROP' Serial specimen #1, #2 or #3: 2 TYPE CODE TESTS RESULT OUT OF RANGE REFERENCE UNITS LAB L501.4010 <0.045 ng/mL Normal < 0.015 TROPONIN-I Result Comment: TROPONIN-I EXPECTED VALUES <0.045 Negative 0.045 - 0.590 Consistent with Cardiac Damage > OR = 0.600 Critical Value Not every elevated troponin is indicative of CT. These values should be used with clinical judgement in examining the patient's clinical picture for diagnosis. To establish a diagnosis of CT versus myocardial injury, there must be a demonstrated rise and/or fall in the troponin values, in addition to ischemic symptoms, EKG changes, new regional wall motion abnormality, and/or angiographical evidence. PLEASE NOTE: REFERENCE RANGES EDITED 18 Performed By: #### L501.4010 #### [facility] [address] [facility] [place], [address] TROPONIN-I Collected: 04/19/2018 Status: F Source: [place] 1:20 AM [facility] REPOSITORY Order Comment: 'TROP' Serial specimen #1, #2 or #3: 1 TYPE CODE TESTS RESULT OUT OF RANGE REFERENCE UNITS LAB L501.4010 <0.045 ng/mL Normal < 0.015 TROPONIN-I Result Comment: TROPONIN-I EXPECTED VALUES <0.045 Negative 0.045 - 0.590 Consistent with Cardiac Damage > OR = 0.600 Critical Value Not every elevated troponin is indicative of CT. These values should be used with clinical judgement in examining the patient's clinical picture for diagnosis. To establish a diagnosis of CT versus myocardial injury, there must be a demonstrated rise and/or fall in the troponin values, in addition to ischemic symptoms, EKG changes, new regional wall motion abnormality, and/or angiographical evidence. PLEASE NOTE: REFERENCE RANGES EDITED 18 Performed By: #### L501.4010 #### [facility] [address] [place], [address] HISTORY AND PHYSICAL Observed: 04/18/2018 Status: F Source: [place] EXAM 6:43 PM [facility] REPOSITORY [facility] Medical Records Department [address] [place] [address] History and Physical 04/18/18 1809 MR#: [id number] Acct: [id number] Name: KIKO QUINN Rep #: [id number] : 1960 58 From: Chanel Bill MD PCP: Ila Pacheco MD Status: ADM CALISTA Y Location: [facility] OE236-2 Problem List (1) Shortness of breath Status: Acute History of Present Illness Date of Admission: 04/18/18 Chief Complaint: Shortness of breath The patient is a 58 year old M with a history of hypertension, hyperlipidemia and seasonal allergies. He was admitted on 04/18/2018 by the ED with a complaint of shortness of breath of one days duration. According to patient he was doing yard work the day before admission and had sudden onset shortness of breath and some mild wheezing. It worsened with exertion was relieved by rest. 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 He was told it was elevated and so he decided to come into the ED to be checked out. He denied any chest pain and only admitted to occasional tingling in his left upper extremity. Denied any orthopnea or PND. He has an extensive smoking history of about 30 pack years and states he does have some wheezing periodically and has seasonal allergies for which he is treated. Patient had a stress test about 5 years ago he presented with chest pain and it was negative. In the ED vitals were temperature of 98.1 Fahrenheit, blood pressure of 145/70, pulse rate of 75 and respiratory rate of 14. He was saturating at 97% on room air. Labs done were pretty unremarkable. Chest x-ray showed hyperinflation of the lungs consistent with COPD and a normal sized heart. No acute findings noted. Patient is being admitted to rule out ACS in light of his cardiac risk factors. [] Past Medical History Allergies Sulfa (Sulfonamide Antibiotics) Allergy (Severe, Verified 08/27/15 16:43) Anaphylaxis NUTS Allergy (Uncoded 11/10/15 18:48) Shortness of breath Home Medications: Ambulatory Orders Medication Instructions Recorded Losartan Potassium [Cozaar] 100 mg PO DAILY 08/22/15 Albuterol Inhaler [Ventolin Hfa] 1 - 2 puff INHALATION Q4H PRN PRN 11/10/15 Surgical History: tonsillectomy - At age 6 Psychiatric History: No pertinent psych hx Lives: Spouse/ Significant Other Smoking Status: Current every day smoker Alcohol: Occasional Drugs: None - *Family History Paternal History Items: Heart Disease Maternal History Items: Heart Disease Review of Systems Constitutional: Denies: Chills, Fever, Weight Change Eyes: Denies: Blurred vision HEENT: Denies: Head Aches, Sinus Congestion, Sinus Drainage Cardiovascular: Denies: Chest Pain, Chest Pressure, Chest Tightness, Heaviness, Light Headedness, Orthopnea, Palpitations, Paroxysmal Noc. Dyspnea, Syncope Respiratory: Reports: Shortness of Breath, Shortness of breath upon exertion, Wheezing. Denies: Cough, Shortness of breath at rest, Sputum production Gastrointestinal: Denies: Abdominal Pain, Nausea, Vomiting Genitourinary: Denies: Dysuria Musculoskeletal: Denies: Joint Pain, Joint Tenderness Skin: Denies: Rash, Wounds Neurological: Denies: Numbness, Tingling, Focal weakness Psychiatric: Denies: Anxiety, Depression, Homicidal Ideations, Suicidal Ideations Hematologic/ Lymphatic: Denies: Easy Bruising, Easy Bleeding VTE Information - Inpt Only VTE Present on Admission: No VTE Mechan Device Prophylaxis: None VTE Pharm Prophylaxis ordered?: Yes Patient Problems: Active and Suspected Problems Shortness of breath (Acute) - Physical Exam General: Alert, Oriented x3, Cooperative, No apparent distress HEENT: Atraumatic, PERRLA, EOMI, Normocephalic Oral: Moist Mucosa Neck: Supple, No JVD, Negative Carotid Bruits Lungs: Clear to auscultation, Normal air movement Cardiovascular: Regular rate, Regular Rhythm, Normal S1, Normal S2, No murmurs Abdomen: Bowel Sounds Present, Soft, Non Tender, Non-Distended, No Hepato-splenomegaly Extremities: No clubbing, No cyanosis, No edema, Capillary Refill Less than 3 Seconds Skin: No rashes, No breakdown Musculoskeletal: No Tenderness to Palpation of Joints or Extremities Lymphatic: No Cervical, Supraclavicular, or Inguinal Adenopathy Neurological: Cranial nerves II-XII grossly intact Psych/Mental Status: Normal Affect, Appropriate, Alert and oriented to time, place, person, mood and affect Vital Signs Temp Pulse Resp BP Pulse Ox 98.1 F 75 14 145/70 H 97 04/18/18 15:53 04/18/18 17:15 04/18/18 17:15 04/18/18 17:15 04/18/18 17:15 Oxygen Delivery Method Room Air Weight: 176 lb Body Mass Index (BMI) 25.9 Laboratory Tests Past 24 Hrs WBC 7.9 RBC 4.44 L Hgb 14.4 Hct 42.4 MCV 95.5 H MCH 32.4 H MCHC 34.0 RDW 13.6 Diagnostic Data Chest X-Ray 04/18/18 16:35 IMPRESSION: No acute findings Electronically Signed: Drew Santoro DO at 16:48 EDT Tel , Service support , Assessment/Plan All Active Problems Shortness of breath (Acute) 58-year-old male presenting with a one-day history of shortness of breath 1. Exertional dyspnea, probably due to COPD; will want to rule out ACS' * Shortness of breath associated with wheezing. EKG showed normal sinus rhythm with no acute ST changes. Also normal axis. * Patient did not have any clear chest pain per se but this is exertional shortness of breath and his cardiac risk factors of hypertension, hypercholesterolemia and extensive smoking history does put him at risk of coronary artery disease. * Admit to [facility] with telemetry. * Initial troponin was negative. We will cycle. * To have treadmill nuclear stress test tomorrow. Will keep n.p.o. past midnight. * Sublingual nitroglycerin as needed. will start PO aspirin 81mg daily * 2. COPD * Does not have a clear diagnosis of COPD. However he has an extensive smoking history of 30 pack years. * Chest x-ray demonstrated hyperinflation. No PFTs on file. * Will give albuterol and Atrovent for breathing treatments. Test PFT on outpatient basis. * 3. Hypertension: on losartan. Will monitor 4. seasonal allergies: on fexofenadine/pseudoephedrine. 5. Hyperlipidemia; on atorvastatin 20mg qhs. will check lipid panel, and check ASCVD score;will adjust statin dose if needed based on his ASCVD score 6. DVT prophylaxis: lovenox CODE STATUS: Full Code. Patient and counseled on different types of CODE STATUS and the remaining implication. Patient selected to be full code. This note was generated with [employer] software. It may contain incorrect words, spelling, and punctuation that were not noted in checking the note before signing. Code Visit OBSV E AND M: [id number] Initial observation care L2 04/18/18 1843 <Electronically signed by Chanel Bill MD> Date Chanel Bill MD Cosigner Signature: Date (if applicable) CC: Ila Pacheco MD; Chanel Bill MD Signed EMERGENCY DEPARTMENT Observed: 04/18/2018 Status: F Source: [place] SUMMARY 6:14 PM [facility] REPOSITORY [facility] Medical Records Department [address] [facility] [place] [address] Emergency Department Summary 04/18/18 1812 MR#: [id number] Acct: [id number] Name: KIKO QUINN Rep #: [id number] : 1960 58 From: Aleisha Wayne DO PCP: Ila Pacheco MD Status: REG ER - ER Visit Summary Date of Service: 04/18/18 Chief Complaint: [Exertional dyspnea] History of Present Illness: The patient is a 58 M [presents the emergency department complaint of shortness of breath especially with exertion. Patient states that he had an episode yesterday where he was shoveling gravel and got very short of breath. Patient states that he went home and sat down and became very diaphoretic and extremely nauseated. Patient states that over last several months he has been more short of breath than usual with activity. Patient states he has no energy. Patient had a hard time sleeping last night just did not feel well and today went to the fire station and have his blood pressure checked and noticed that his systolic was over 160. Patient denies any chest pain. He denies recent travel or surgery. There is no family history of heart disease.] Physical Examination: [HEENT-PERRLA, EOMI. Cranial nerves II through XII grossly intact. TMs clear. Mucous membranes moist. No adenopathy. Cardiovascular-regular rate and rhythm without murmur or ectopy Lungs-clear to auscultation, chest wall stable without crepitus or subcu emphysema Abdomen-normoactive bowel sounds, soft, nontender, no rebound or rigidity, no peritoneal signs. Extremities-intact 4, normal range of motion, normal pulses, atraumatic] Test Results: [EKG obtained on arrival showed a sinus rhythm with a ventricular rate of 86 bpm with no acute ST segment changes. CBC with differential is normal. Chemistries unremarkable. Troponin was less than 0.015. Chest x-ray showed nothing acute.] Emergency Department Course and Treatment: [Patient received aspirin in the emergency department] Treatment Plan: [Admit for further workup and evaluation of exertional dyspnea as patient has multiple risk factors for coronary artery disease including hypertension, high cholesterol, smoking history, age, and male sex.] Disposition: [Admit] Impression: [Exertional dyspnea-rule out acute coronary syndrome] This note was generated with ClubKvi[employer] software. It may contain incorrect words, spelling, and punctuation that were not noted in review of the chart prior to signing ED Disposition - Plan for ED Patient: Chief Complaint: General Illness Referrals: Ila Pacheco MD [Primary Care Provider] - What to do if you have Problems For any increased pain, shortness of breath, bleeding, nausea or vomiting, chest pain, or any unexpected problems, contact your Primary Care Provider. Call [facility] ([phone]) or report to the closest Emergency Room. Call 911 if necessary. 04/18/18 1816 <Electronically signed by Aleisha Wayne DO> Date Aleisha Wayne DO Cosigner Signature (If Indicated): Date CC: Ila Pacheco MD BASIC METABOLIC Collected: 04/18/2018 Status: F Source: [place] PROFILE (BMP) 4:50 PM [facility] REPOSITORY TYPE CODE TESTS RESULT OUT OF RANGE REFERENCE UNITS LAB L501.0100 74-106 mg/dL Normal GLU 88 Result Comment: Please note revised GLUCOSE reference range effective 2017. LAB L501.1000 7-18 mg/dL Normal BUN 13 LAB L501.1100 0.70-1.30 mg/dL Normal CREAT,SERUM 1.04 Result Comment: The validity of the calculated GFR AND GFRAA in patients over 70 years has not been determined. Clinical correlation is essential. LAB L501.1110 >60 mL/min Normal EST GFR 79 Result Comment: Non- GFR Calc LAB L501.1115 >60 mL/min Normal EST GFR - AA 95 Result Comment: GFR Calc LAB L501.1255 ml/min Normal Estimated CRCL 79.31 LAB L501.1300 10-20 RATIO Normal BUN/CRE 12.5 LAB L501.2200 8.5-10 mg/dL Normal .1 CA 9.2 LAB L501.5300 136-14 mmol/L Normal 5 NA 138 LAB L501.5600 3.5-5. mmol/L Normal 1 K 4.6 Result Comment: Moderate Hemolysis, Result may be falsely increased. LAB L501.5900 98-107 mmol/L Normal CL 107 LAB L501.6100 21.0-32.0 mmol/L Normal CO2 26.0 LAB L501.6200 5-15 Normal 5 GAP Performed By: #### L500.2500, L501.4010 #### [facility] [address] [place], [address] TROPONIN-I Collected: 04/18/2018 Status: F Source: [place] 4:50 PM [facility] REPOSITORY TYPE CODE TESTS RESULT OUT OF RANGE REFERENCE UNITS LAB L501.4010 <0.045 ng/mL Normal < 0.015 TROPONIN-I Result Comment: TROPONIN-I EXPECTED VALUES <0.045 Negative 0.045 - 0.590 Consistent with Cardiac Damage > OR = 0.600 Critical Value Not every elevated troponin is indicative of CT. These values should be used with clinical judgement in examining the patient's clinical picture for diagnosis. To establish a diagnosis of CT versus myocardial injury, there must be a demonstrated rise and/or fall in the troponin values, in addition to ischemic symptoms, EKG changes, new regional wall motion abnormality, and/or angiographical evidence. PLEASE NOTE: REFERENCE RANGES EDITED 18 Performed By: #### L500.2500, L501.4010 #### [facility] [address] [place], [place], [address] CBC W/DIFF, AUTOMATED Collected: 04/18/2018 Status: F Source: [place] 4:50 PM [facility] REPOSITORY TYPE CODE TESTS RESULT OUT OF RANGE REFERENCE UNITS LAB L100.1000 4.4-11.0 K/mm3 Normal WBC 7.9 LAB L100.1200 4.6-6.2 M/mm3 Low RBC 4.44 LAB L100.1300 13.0-16.5 g/dl Normal HGB 14.4 LAB L100.1400 40-54 % Normal HCT 42.4 LAB L100.1500 80-94 fL High MCV 95.5 LAB L100.1600 27.0-32.0 pg High MCH 32.4 LAB L100.1700 32-36 g/gl Normal MCHC 34.0 LAB L100.1810 11.6-14.6 % Normal RDW CV 13.6 LAB L100.1820 35.1-43.9 fl High RDW SD 47.2 LAB L100.1900 150-450 K/mm3 Normal PLT 246 LAB L100.2000 6.2-12.0 fl Normal MPV 9.7 LAB L100.2100 47-70 % Normal NEUT% 60.2 LAB L100.2200 19-41 % Normal LY% 28.2 LAB L100.2300 0-10 % Normal MONO% 8.3 LAB L100.2400 0-5 % Normal EO% 2.8 LAB L100.2500 0-1 % Normal BASO% 0.4 LAB L100.2550 0.0-0.9 % Normal IM GRAN % 0.100 Result Comment: IG% - Immature Granulocytes (promyelocytes, myelocytes and metamyelocytes) > 1% indicates that a LEFT SHIFT is Present. LAB L100.2620 2.0-7.7 X10 3/uL Normal Absolute Neut 4.8 LAB L100.2720 0.83-4.51 X10 3/ul Normal Absolute Lymph 2.23 Performed By: #### L100.0100 #### [facility] [address] [place], [place], [address] CHEST 1 VIEW Observed: 04/18/2018 Status: F Source: [place] (PORTABLE) 4:26 PM [facility] REPOSITORY [facility] Imaging Services [address] [place] [address] Chest 1 View (Portable) MR#: [id number] Acct: [id number] Name: KIKO QUINN Rep #: [id number] : 1960 M 58 From: Drew Santoro DO PCP: Ila Pacheco MD Status: PRE ER Study: Chest 1 View (Portable) Date of Exam: 04/18/18 Exam# [id number] Ordering Dr: Aleisha Wayne DO STUDY: X-RAY CHEST REASON FOR EXAM: Male, 58 years old. Chest pain and weakness TECHNIQUE: Single AP portable view of the chest. COMPARISON: 11/10/2015 FINDINGS: There is hyperinflation of the lungs consistent with chronic obstructive lung disease (COPD). There is no demonstrated pleural abnormality. Normal size heart. Normal mediastinum and phillip. Normal visualized pulmonary arteries. Normal visualized aortic arch and descending thoracic aorta. Normal visualized thoracic spine. Normal visualized ribs, clavicles, and shoulders. There is no demonstrated abnormality of the visualized soft tissue structures of the upper abdomen. RAD/Chest 1 View (Portable) IMPRESSION: No acute findings Electronically Signed: Drew Santoro DO at 16:48 EDT Tel , Service support , CC: Ila Pacheco MD; Aleisha Wayne DO Computer Systems Architect: Signed PT D/C SUMMARY (1) Observed: 09/16/2017 Status: F Source: [place] 10:14 AM [facility] REPOSITORY [facility] [place] [address] Fax REHABILITATION SERVICES DISCHARGE SUMMARY MR#: [id number] Acct: [id number] Name: KIKO QUINN Rep #: [id number] : 1960 57 From: Mildred Guillermo DPT Referring Dr.: Ila Pacheco MD Status: REG RCR Insurance: [facility] HP - PT D/C Summary It has been my pleasure to treat KIKO QUINN under orders from Ila Pacheco MD, for the diagnosis of Right knee sprain for a total of 6 visit(s). Discharge Date: Please see the following information for a summary of their discharge status. - Subjective Subjective: Patient reports that his knee feels great- but his hip is bothering him. Constant dull and achy- if he lays down and straightens up it shoots down from the hip to the toes. Feels confident to continue program at home. Still wears the brace due to feeling a little unstable- - Pain Right Knee Pain Intensity (Out of 10): 0 - Overall Improvement % Improvement: 90 - Objective Objective/Function: Posture: good throughout. Gait: no deviation. Stairs: asc/desc 8 stairs recip with no hr and good technique. Squat: good technique. Palpation: not tender. ROM: WNL in all planes. Strength: 5/5 throughout Core: fair plus - Goals Goal 1:: Patient will be I with HEP and progression Goal Progress: Goal Met Goal 2:: Patient will SLS for 30 sec without LOB on the right Goal Progress: Goal Met Goal 3:: Patient will demo 5/5 strength in LE to ease ADL's Goal Progress: Goal Met Goal 4:: Patient will asc/desc 8 stairs recip with no HR and no pain Goal Progress: Goal Met - Plan Plan: Discharge to I HEP - D/C Information If there are questions or concerns regarding this patient's physical therapy, please feel free to call me at [phone]. Thank you for the referral of this patient. Sincerely, Mildred Guillermo <Electronically signed by Mildred Guillermo DPT> 09/16/17 1014 CC: Ila Pacheco MD ELR Signed ALLERGIES ALLERGIES DATE TYPE / CODE NAME / CODE REACTION SEVERITY SOURCE Drug Sulfa Anaphylaxis [place] 8 Allergy/927766816( (Sulfonamide Community SNOMED CT) Antibiotics)/F Hospital [id number](RXNO Repository RM) Miscellaneous NUTS Anaphylaxis SV [place] 8 Allergy/758597146( Community SNOMED CT) Hospital Repository Drug peanut/[id number] Anaphylaxis SV [place] 8 Allergy/887405057( 568(RXNORM) [facility] SNOMED CT) Hospital Repository Miscellaneous seasonal Other CT [place] 8 Allergy/298015076( allergies Community SNOM[facility]) Hospital Repository ENCOUNTERS ENCOUNTERS ADMIT/DISCHARGE ACCOUNT ADMITTING ENCOUNTER LOCATION SOURCE NUMBER CLASS 08/25/2018 [id number] Ambulatory [place] 6 [facility] Hospital ing:PAVLAB Repository 08/25/2018/ [id number] Ambulatory BMSBuilding:B [place] 8 9 [facility] Repository 08/15/2018 [id number] Ambulatory [place] 3 [facility] Hospital ing:PSN Repository 08/15/2018 [id number] Ambulatory BMSBuilding:W [place] 6 [facility] Repository 08/05/2018 [id number] Ambulatory [place] 1 [facility] Hospital ing:CT Repository 07/14/2018/ [id number] Ambulatory BMSBuilding:B [place] 8 2 [facility] Repository 04/19/2018/ [id number] Ambulatory BMSBuilding:W [place] 8 8 [facility] Repository 04/19/2018/ [id number] Ambulatory BMSBuilding:W [place] 8 1 [facility] Repository 04/18/2018/ [id number] Chanel Bill Ambulatory [place] [facility]:RE5Nbyh: Repository UC485Ftj: 1 04/18/2018 [id number] Chanel Bill Ambulatory BMSBuilding:B [place] 3 Rena [place] Repository 04/18/2018/ [id number] Ambulatory BMSBuilding:W [place] 8 9 [facility] Repository 09/16/2017/ [id number] Ambulatory [place] 7 0 [facility] ing:PT Repository PAYERS PAYERS ENCOUNTER GUARANTOR PAYER SUBSCRIBER SOURCE 08/25/2018 KIKO Back Primary HANNA NOBLEDOB: [place] [id number] [address]AHR Insurance:CIGNAPolicy [id number] [facility] [place] [place] Number: Hospital [id number]: (486) [id number] Repository [phone] () Date:4769-25-98[address], [place] [address]SV: 08/25/2018 Secondary NOT GIVENUNK [place] Insurance:SELF PAY [facility] Number: Effective Repository Date:2018-08-25 08/25/2018 KIKO Back Primary HANNA NOBLEDOB: [place] [id number] [address] Insurance:CIGNAPolicy [id number] [place] [facility] [address]Spd: [id number] Repository [phone] () Date:8967-87-32CJ [address], [place] [address]KV: 08/25/2018 Secondary NOT GIVENUNK [place] Insurance:SELF PAY [facility] Number: Effective Repository Date:2018-08-22 08/15/2018 KIKO Back Primary HANNA CURIELBLEDOB: [place] [id number] [address] Insurance:CIGNAPolicy [id number] [facility] [place] [place] Number: Hospital [address]Rnl: 330 [id number] Repository [phone] () Date:8430-71-56UF [address], [place] [address]US: 08/15/2018 Secondary NOT GIVENUNK [place] Insurance:SELF PAY [facility] Number: Effective Repository Date:2018-07-14 08/15/2018 KIKO Back Primary HANNA CURIELBLEDOB: [place] [id number] [address] Insurance:CIGNAPolicy [id number] [facility] [place] [place] Number: Hospital [id number]: (321) [id number] Repository [phone] () Date:1536-71-47TC [address]AYLATG[place], [place] [address]ZE: 08/15/2018 Secondary NOT GIVENUNK [place] Insurance:SELF PAY [facility] Effective Repository Date:2018-08-15 08/05/2018 KIKO Back Primary HANNA NOBLEDOB: [place] [id number] [address] Insurance:CIGNAPolicy [id number] [facility] [address]Kvg: [phone]) [id number] Repository [phone] () Date:0193-15-68VP [address]WAYIJPDVVRM, [place] [address]WX: 08/05/2018 Secondary NOT GIVENUNK [place] Insurance:SELF PAY [facility] Number: Effective Repository Date:2018-07-29 07/14/2018 KIKO R Primary HANNA NOBLEDOB: [place] [id number] [address] Insurance:CIGNAPolicy [id number] Number: [facility] [address]Bqn: [phone] [id number] Repository [phone] () Date:7542-35-66GG [address]MHNWMRYK[address], [place] [address]IU: 07/14/2018 Secondary NOT GIVENUNK [place] Insurance:SELF PAY [facility] Number: Effective Repository Date:2018-07-07 04/19/2018 Kiko R Primary HANNA NOBLEDOB: [place] [id number] [place] Insurance:CIGNAPolicy [id number] [facility] [address]Ufz: [phone] [id number] Repository [phone] () Date:4893-48-93N[address]REKVWHKBFIR, [place] [address]TP: 04/19/2018 Secondary NOT GIVENUNK [place] Insurance:SELF PAY [facility] Number: Effective Repository Date:2018-04-19 04/19/2018 Kiko R Primary HANNA NOBLEDOB: [place] [id number] [place] Insurance:CIGNAPolicy [id number][facility] Number[place] Hospital [id number]: [phone] [id number] Repository [phone] () Date:1451-40-29NQ [address]XGSXGVFSEUI, [place] [address]VK: 04/19/2018 Secondary NOT GIVENUNK [place] Insurance:SELF PAY [facility] Effective Repository Date:2018-04-19 04/18/2018 Kiko R Primary HANNA NOBLEDOB: [place] [id number] [place] Insurance:CIGNAPolicy [id number] [facility], [place] Number: Hospital [id number]: [phone] [id number] Repository [phone] () Date:5531-92-93SM [address]ZCEEDIHYGSU, [place] [address]EO: 04/18/2018 Secondary NOT GIVENUNK [place] Insurance:SELF PAY [facility] Number: Effective Repository Date:2018-04-18 04/18/2018 Kiko R Primary HANNA NOBLEDOB: [place] [id number] [place] Insurance:CIGNAPolicy [id number] [facility] Number: Hospital [address]Aah: [id number] Repository [phone] () Date:8281-54-51[place] [address]FRASSSIBMXL, [place] [address]ZI: 04/18/2018 Secondary NOT GIVENUNK [place] Insurance:SELF PAY [facility] Number: Effective Repository Date:2018-04-18 04/18/2018 Kiko R Primary HANNA NOBLEDOB: [place] [id number] [place] Insurance:CIGNAPolicy [id number] [facility] Number: Hospital [address]Klw: [phone] [id number] Repository [phone] () Date:8080-29-44W[address]GRCDPZRZHCF, [place] [address]BM: 04/18/2018 Secondary NOT GIVENUNK [place] Insurance:SELF PAY [facility] Number: Effective Repository Date:2018-04-18 09/16/2017 Kiko Back Primary HANNA NOBLEDOB: [place] [id number] [place] Insurance:CIGNAPolcostay [id number] [facility] CenterTyshawn [place] Number: [facility] [id number]: [id number] Repository [phone] Date:[id number] ) [id number], [place] [address]UB: 09/16/2017 Secondary NOT GIVENUNK [place] Insurance:SELF PAY [facility]: Effective Repository Date:2017-08-23
== END ==
PROVIDERS: Family Provider Family Medicine; PCP Family Medicine; Referring Provider Nurse Practitioner Acute Care; Visit Provider Nurse Practitioner Acute Care
DX: J45.909 Unspecified asthma, uncomplicated (principal)
CPT/HCPCS: 36415; 82785; 85025; 86003; 86606

== ENCOUNTER → 2019-01-25 07:42 | Outpatient (CLI) | payer OTHER, SELFPAY ==
[2018-08-25 10:42] VITALS: BMI 26.2
--- NOTE | 2019-01-25 10:30 | PFTCOMP_ITS ---
COMPLETE PULMONARY FUNCTION TEST INTERPRETATION Brief HPI: Patient is a 58 year old male, currently under the care of Dr. Ferreira, who presents to [facility] for complete pulmonary function tests secondary to diagnosis of dyspnea. Respiratory therapist reports good effort and reproducible results. Interpretation: Forced expiration spirometry shows a mild large airways obstructive ventilatory defect with an FEV1 of 81% predicted. There is no significant bronchodilator response by strict ATS criteria. Spirograms are of good quality and plateau slowly, indicating slowly emptying areas of the lungs. The respiratory flow volume loop shows decreased expiratory flow rates at high lung volumes consistent with small airways obstruction. Lung volumes by body plethysmography show a normal total lung capacity at 6.16 L, 95% predicted. All other lung volumes are within normal limits. Diffusion capacity by carbon monoxide is normal at 128% predicted. The airway resistance is slightly elevated. Compared to previous pulmonary function tests from 08/15/2018, there has been no significant change. Impression: Irreversible mild large airways obstructive ventilatory defect with preserved diffusing capacity. No significant change compared to previous.
== END ==
PROVIDERS: Family Provider Family Medicine; PCP Family Medicine; Referring Provider Nurse Practitioner Acute Care; Visit Provider Nurse Practitioner Acute Care
DX: R06.02 Shortness of breath (principal)
CPT/HCPCS: 94060; 94726; 94729

== ENCOUNTER → 2019-05-15 14:00 | Outpatient (CLI) | payer OTHER, SELFPAY ==
[2019-02-13 08:14] VITALS: BMI 26.2
--- NOTE | 2019-05-15 14:11 | RAD_ITS ---
STUDY: X-RAY - LUMBAR SPINE REASON FOR EXAM: Male, 59 years old. Pain TECHNIQUE: 5 view(s) of the lumbar spine were obtained. COMPARISON: None FINDINGS: Normal lumbar lordosis. There is no substantial scoliosis. There is a normal alignment of the vertebrae. There is multilevel endplate spondylosis of the lumbar vertebrae. There is multi-level degenerative disc disease with multi-level disc space narrowing. There is no demonstrated fracture. There is no demonstrated spondylolysis of the pars interarticulares. There is mild degree of atherosclerotic calcification of the abdominal aorta without a demonstrated aneurysm. RAD/L/S Spine Min 4 Views IMPRESSION: Degenerative changes of the spine, as detailed above. Electronically Signed: Kenneth Cantu MD at 18:50 EDT Tel [phone], Service support ,
== END ==
PROVIDERS: Family Provider Family Medicine; PCP Family Medicine; Referring Provider Family Medicine; Visit Provider Family Medicine
DX: M54.9 Dorsalgia, unspecified (principal)
CPT/HCPCS: 72110

== ENCOUNTER 2019-06-21 08:00 | Outpatient (RCR) | payer OTHER, SELFPAY ==
[2019-02-13 08:14] VITALS: BMI 26.2
--- NOTE | 2019-05-31 11:22 | HP.PTEVAL_ITS ---
Patient's Visit Information KIKO QUINN is a 59 year old M referred to Physical Therapy by Trino Dye MD with a diagnosis of LUMBAR DDD ,RIGHT SI DYSFUNCTION. Date of Evaluation: 05/31/19 Physical Therapist: Klaus Green PT, Cert MDT, OCS - Visit Plan Frequency: 2x /Week Duration: 4 Weeks Plan: PT INTERVENTION DLS ABD/BACK,POSTURAL EX'S ,LE FLEXABLITY,MODALTIES PRN - Subjective Findings: This 59 y/o male presents to physical therapy with lumbar radiculoathy . Patient has had low back pain past 2 years . Patient had fracture iliac crest 30 years ago. Patient had prior PT in knee , Patient right L-S region . Aggravating factors sitting,standing,,cold weather,jumping .Alleviating factors bending ,lifting. Patient pain affects sleeping . Patient pain affects job demnads and housework tasks. Patient symptoms are intermmitant . Bowel/bladder-. Coughing/sneezing-. Patient pain affects QOL. VOCATION: [employer]. SOCIAL: - Pain Right Back Pain Intensity (Out of 10): 2 Pain Intensity Range: 10 - Objective POSTURE: mild foward posture. GAIT: reciprocal pattern. NEURO: denies parathesia/tingling ,reflexes L3-4,L4-5,L5-S1 2/3. SYMMTRIES: align. PALAPTION: right SI. MMT: 5/5 quad/hams/hip/ankle. LUMBAR ROM: flexion mid loss,extension mod loss,side glides min loss. FLEXABLITY: hams min tight. + LUMBAR QUADRANT. MUSCULAR ENDURANCE: fair TA ,multifidas - Special Tests L/S Slump test left side: Negative L/S Slump test right side: Negative L/S Left Straight Leg Raise: Negative L/S Right Straight Leg Raise: Negative Lumbar Standing: Flexion - Mechanical Response: No effect Lumbar Standing: Flexion - Symptoms During Testing: No effect Lumbar Standing: Flexion - Symptoms After Testing: No effect Lumbar Standing: Extension - Mechanical Response: No effect Lumbar Standing: Extension - Symptoms During Testing: Increases Lumbar Standing: Extension - Symptoms After Testing: Worse Lumbar Standing: Right Side Glides - Mechanical Response: No effect Lumbar Standing: Right Side [place] - Symptoms During Testing: No effect Lumbar Standing: Right Side [place] - Symptoms After Testing: No effect Lumbar Standing: Left Side [place] - Mechanical Response: No effect Lumbar Standing: Left Side [place] - Symptoms During Testing: No effect Lumbar Standing: Left Side [place] - Symptoms After Testing: No effect Lumbar Lying: Flexion - Mechanical Response: No effect Lumbar Lying: Flexion - Symptoms During Testing: No effect Lumbar Lying: Flexion - Symptoms After Testing: No effect Lumbar Lying: Extension - Mechanical Response: No effect Lumbar Lying: Extension - Symptoms During Testing: Increases Lumbar Lying: Extension - Symptoms After Testing: Worse - Goals Goal 1:: Independant with HEP. Goal Time Frame: 4-6 Weeks Goal 2:: Patient to improve posture/body mechanics Goal Time Frame: 4-6 Weeks Goal 3:: Pateint decrease lumbar pain by 50% or > to improve function. Goal Time Frame: 4-6 Weeks Goal 4:: Pateint to improve lumbar ROM FOR FUNCTION OF RECOVERY Goal Time Frame: 4-6 Weeks Goal 5:: Pateint improve back owestry score by 5 points to improve QOL. Goal Time Frame: 4-6 Weeks - Rehabilitation Potential Physical Therapy Diagnosis: This pateint has right lumbra pain possibel lateral stenosis along with right SI dysfunction with pain ,decrease ROM ,impairs walking standing and job demnads. Rehabilitation Potential: Good - Anticipated Interventions Patient/Client Instruction: Educate patient on: Condition, Plan of Care For the Purpose of:: To decrease pain, To increase ROM, To improve muscle performance and motor function, To improve ability to perform ADL's, To increase tolerance to activity/condition/position, To improve ability of physical actions for home/community/work/leisure, To increase flexibility/ROM, To reduce risk of recurrence, To improve ability to perform tasks related to life management Therapeutic Exercise to Include: Strength training, Postural training, Flexibilty training, Dynamic Lumbar Stabilization For the Purpose of:: To decrease pain, To improve nutrient delivery to tissue, To improve muscle performance and motor function, To improve ability to perform ADL's, To improve ability of physical actions for home/community/work/leisure, To improve health of tissue, To decrease soft tissue restriction, To increase flexibility/ROM, To improve ability to perform tasks related to life management TENS: Yes IF ES: Yes Cryotherapy (ice pack, ice massage): Yes Thermo therapy (hot pack): Yes Ultrasound (thermal/non thermal): Yes For the Purpose of:: To decrease pain, To increase ROM, To improve nutrient delivery to tissue, To increase oxygenation perfusion, To improve health of tissue, To decrease soft tissue restriction Thank you for the opportunity to evaluate your patient. For Medicare and Medicare HMO plans, please review the plan of care and approve it. It will need to be FAXED BACK to us at [phone] for Medicare purposes. For Medicare only, by signing this I certify the plan of care. Please let me know if there are questions or concerns regarding this plan of care. Physician Signature: Date:
--- NOTE | 2019-06-21 08:33 | HP.PTDCSUM ---
HP - PT D/C Summary It has been my pleasure to treat KIKO QUINN under orders from Trino Dye MD, for the diagnosis of LUMBAR DDD ,RIGHT SI DYSFUNCTION for a total of 6 visit(s). Discharge Date: 06/21/19 Please see the following information for a summary of their discharge status. - Subjective Subjective: Doing good ..Strtches seem to be helping.Able to standing extended periods sore in back. - Pain Right Back Pain Intensity (Out of 10): 0 - Overall Improvement % Improvement: 60 - Objective Objective/Function: POSTURE: mild foward posture. LUMBAR ROM: flexion WFL,extension min loss,side glides min loss. MMT: quads/hams/hip/ankle 5/5 - Goals Goal 1:: Independant with HEP. Goal Progress: Goal Met Goal 2:: Patient to improve posture/body mechanics Goal Progress: Goal Met Goal 3:: Pateint decrease lumbar pain by 50% or > to improve function. Goal Progress: Goal Met Goal 4:: Pateint to improve lumbar ROM FOR FUNCTION OF RECOVERY Goal Progress: Goal Met Goal 5:: Pateint improve back owestry score by 5 points to improve QOL. Goal Progress: Goal Met - Plan Plan: D/C - D/C Information If there are questions or concerns regarding this patient's physical therapy, please feel free to call me at [phone]. Thank you for the referral of this patient. Sincerely, Klaus Green, PT, Cert MDT, OCS
== END 2019-06-21 19:00 | disposition home or self-care (01) ==
LOC: PT 08:00
PROVIDERS: Family Provider Family Medicine; PCP Family Medicine; Referring Provider Family Medicine; Visit Provider Family Medicine
DX: M51.36 Other intervertebral disc degeneration, lumbar region (principal); M46.1 Sacroiliitis, not elsewhere classified
CPT/HCPCS: 97014; 97110; 97161; G0283

== ENCOUNTER → 2019-08-08 10:03 | Outpatient (CLI) | payer OTHER, SELFPAY ==
[2019-07-27 08:01] VITALS: BMI 26.2
[2019-08-08 13:09] LABS: BUN 11 mg/dL (7-18); Creatinine, Serum 0.92 mg/dL (0.70-1.30); Glucose 103 mg/dL (74-106)
[2019-08-08 13:10] LABS: AST(SGOT) 26 U/L (15-37); Alanine Aminotransfer ALT/SGPT 38 U/L (16-61); Anion Gap 5 (5-15); Calcium,Total 9.1 mg/dL (8.5-10.1); Chloride 109 mmol/L (98-107); Cholesterol 166 mg/dL (200); EST Glomerular Filtration Rate 91 mL/min (>60); Est Glom Filt Rate - Afr Amer 110 mL/min (>60); High Density Lipoprotein 50 mg/dL; Sodium Level 140 mmol/L (136-145); Triglycerides 130 mg/dL; Very Low Density Lipoprotein 26 mg/dL (5-40)
== END ==
PROVIDERS: Family Provider Family Medicine; PCP Family Medicine; Referring Provider Family Medicine; Visit Provider Family Medicine
DX: I10 Essential (primary) hypertension (principal); E78.00 Pure hypercholesterolemia, unspecified; Z12.5 Encounter for screening for malignant neoplasm of prostate
CPT/HCPCS: 36415; 80048; 80061; 84153; 84450; 84460; G0103

== ENCOUNTER → 2019-09-01 07:50 | Outpatient (CLI) | payer OTHER, SELFPAY ==
[2019-07-27 08:01] VITALS: BMI 26.2
--- NOTE | 2019-09-01 07:51 | CT_ITS ---
STUDY: LOW DOSE CT LUNG CANCER SCREENING REASON FOR EXAM: Male, 59 years old. 30+ year history of smoking less than 1 pack per day. Asthma. RADIATION DOSAGE (If Supplied By Facility): CTDIvol = ( 3.02 ) mGy, DLP = ( 107.22 ) mGycm TECHNIQUE: No contrast was administered. Low dose technique was utilized (average mAS-38 and kVp 120). 1.25 mm axial source images with a slice interval of 1.25-mm were reconstructed in lung windows. 2.5 mm axial source images with a slice interval of 2.5-mm were reconstructed in lung windows. 5.0 mm axial source images with a slice interval of 5.0-mm were reconstructed in soft tissue windows. Nodule measured using lung windows on PACS and/or independent workstation with automated measurement of minimum and maximum diameter. Nodule measurement reported as average diameter rounded to the nearest whole number. Growth is defined as an increase ins size of greater than 1.5 mm. COMPARISON: August 05, 2018. NODULES: Nodule #: 1 Density: Solid Lung location: Right upper lobe: 1.3 cm from pleura Location in series: Series Number: 2 Image: 27 Size - D1 x D2 mm: 1 x 4 mm: 5 mm average diameter Margin: Smooth Shape: Oval Calcification: Yes Fat: No Temporal comparison: Stable Nodule #: 2 Density: Lung location: Left upper lobe lobe: 1.4 cm from pleura Location in series: Series Number: 2 Image: 27 Size - D1 x D2 mm: 3 x 3 mm: 3 mm average diameter Margin: Smooth Shape: Rounded Calcification: Yes Fat: No Temporal comparison: Stable Nodule #: 3 Density: Solid Lung location: Right upper lobe: 0.5 cm from pleura Location in series: Series Number: 2 Image: 60 Size - D1 x D2 mm: 2 x 2 mm: 2 mm average diameter Margin: Smooth Shape: Round Calcification: Yes Fat: No Temporal comparison: Stable Nodule #: 4 Density: Solid Lung location: Left upper lobe: 2.2 cm from pleura Location in series: Series Number: 2 Image: 160 Size - D1 x D2 mm: 3 x 3 mm: 3 mm average diameter Margin: Smooth Shape: Round Calcification: Yes Fat: No Temporal comparison: Stable Total lung nodules (excluding granulomas): 0 Emphysema: No. There is mild bilateral apical pleural scarring. Endobronchial lesion: None Aorta: Normal Coronary arteries: There are mild coronary artery calcifications. Heart: Normal in size Pulmonary artery: Normal Mediastinal nodes: Stable subcentimeter nonspecific mediastinal lymphadenopathy. Other chest and abdominal findings: Minimal degenerative changes of the thoracic spine. CT/Low Dose CT Lung Screening IMPRESSION: Lung-RADS category 1 - Continue annual screening with LDCT in 12 months. IMPORTANT NOTES FOR USE: ACR Lung-RADS Version 1.0 Assessment Categories Release Date: January 22, 2014 Category: Coded 0-4 bases on nodule(s) with highest degree of suspicion. Negative screen is defined as categories 1 and 2; a positive screen is defined as categories 3 and 4. Category 3 and 4A nodules that are unchanged on interval CT should be coded as category 2, and individuals returned to screening in 12 months. Category 4X: Category 3 or 4 nodules with additional imaging findings that increase the suspicion of lung cancer, such as spiculation, GGN that doubles in size in 1 year, enlarged lymph notes, etc. Category Modifiers: S (significant finding unrelated to lung cancer) and C (prior history of treated lung cancer) may be added to the 0-4 Lung-RADS Electronically Signed: Mamadou Alonzo DO at 17:18 EST Tel [phone], Service support ,
== END ==
PROVIDERS: Family Provider Family Medicine; PCP Family Medicine; Referring Provider Internal Medicine Critical Care Medicine; Visit Provider Internal Medicine Critical Care Medicine
DX: F17.210 Nicotine dependence, cigarettes, uncomplicated (principal)
CPT/HCPCS: G0297

== ENCOUNTER → 2020-07-12 | Outpatient (CLI) | payer OTHER, SELFPAY ==
[2020-02-13 10:14] VITALS: BMI 26.2
== END | disposition home or self-care (01) ==
LOC: LABSPEC 07-16 14:42
PROVIDERS: PCP Family Medicine; Referring Provider Family Medicine; Visit Provider Family Medicine
DX: Z20.828 Contact with and (suspected) exposure to other viral communicable diseases (principal)
CPT/HCPCS: 87635; C9803; U0003

== ENCOUNTER → 2020-07-31 07:39 | Outpatient (CLI) | payer OTHER, SELFPAY ==
[2020-02-13 10:14] VITALS: BMI 26.2
[2020-07-31 10:45] LABS: Anion Gap 6 (5-15); BUN 14 mg/dL (7-18); BUN/Creat Ratio 14.3 RATIO (10-20); Calcium,Total 8.9 mg/dL (8.5-10.1); Chloride 106 mmol/L (98-107); Cholesterol 156 mg/dL (200); Creatinine, Serum 0.98 mg/dL (0.70-1.30); EST Glomerular Filtration Rate 83 mL/min (>60); Est Glom Filt Rate - Afr Amer 101 mL/min (>60); Glucose 111 mg/dL (74-106); High Density Lipoprotein 57 mg/dL; PSA,Total - Annual Screen 0.94 ng/mL (0.00-4.00); Sodium Level 139 mmol/L (136-145); Triglycerides 110 mg/dL; Very Low Density Lipoprotein 22 mg/dL (5-40)
== END ==
PROVIDERS: PCP Family Medicine; Referring Provider Family Medicine; Visit Provider Family Medicine
DX: Z00.00 Encounter for general adult medical examination without abnormal findings (principal); Z12.5 Encounter for screening for malignant neoplasm of prostate
CPT/HCPCS: 36415; 80048; 80061; 84153; G0103

== ENCOUNTER 2020-11-01 10:25 | Observation (INO) | payer OTHER, SELFPAY ==
[2020-11-01] VITALS (14 sets, daily range): BP systolic 127–172; BP diastolic 77–108; PULSE 73–88; RESP 13–18; TEMP 36.2–36.9; O2SAT 95–98; BMI 24.5; BMI 25.8
--- NOTE | 2020-11-01 10:57 | EKG12_ITS ---
Test Reason : NUMBNESS Blood Pressure : / mmHG Vent. Rate : 088 BPM Atrial Rate : 088 BPM P-R Int : 154 ms QRS Dur : 094 ms QT Int : 362 ms P-R-T Axes : 069 026 036 degrees QTc Int : 438 ms Normal sinus rhythm Normal ECG Confirmed by YUNG KAMARA, JYOTI ([id number]), mixed crop farmer CHER DA SILVA ([id number]) on 11/04/2020 2:12:35 PM Referred By: DANAE Confirmed By:JYOTI BARRAGAN MD
--- NOTE | 2020-11-01 10:58 | ED.VIS.STROK ---
History of Present Illness Chief Complaint: Numb/Ting Informant: Patient Onset: Today - About 45 minutes prior to my evaluation Context: Sudden Onset - While talking on the phone, at rest at home Timing: Continuous Quality and Location: Right Arm Parasthesia, Right Leg Parasthesia, - - Also numbness in the right body that stops at the midline. Negative for: Right Face Paresthesia, Left Face Parasthesia Onset: Sudden, see above Current Severity: Moderate Maximum Severity: Moderate Worsened by: Nothing, including movement of arm, leg, head/neck Relieved by: Nothing Associated Symptoms: Negative for: Headache, Nausea, Vomiting, Chest Pain Narrative: Patient started having numbness and tingling down his right arm, right leg to his toes, and also the right side of his chest/abdomen. No face involvement. No pain in his head, neck, or anywhere in his back/abdomen. He states he has never had this happen before, he has never had a stroke, and he did not injure anything. He was at rest when this happened. Prior similar symptoms: No Recent Illness/Hospitalization: No - Past Medical History (1) Hypertension Status: Chronic (2) Hyperlipidemia Status: Chronic (3) Asthma Status: Chronic Past Medical History - Allergies and Home Meds Allergies/Adverse Reactions: Allergies peanut Allergy (Severe, Verified 11/01/20 10:31) Anaphylaxis Sulfa (Sulfonamide Antibiotics) Allergy (Severe, Verified 11/01/20 10:31) Anaphylaxis NUTS Allergy (Severe, Uncoded 11/01/20 10:31) Anaphylaxis seasonal allergies Allergy (Mild, Uncoded 11/01/20 10:31) Other Primary Care Physician: Ila Pacheco MD [Primary Care Provider] - Surgical History: tonsillectomy - At age 6 Lives: Spouse/ Significant Other Smoking Status: Current every day smoker - Family History Paternal Family History: Family History (Last Updated 10/30/20 @ 10:15 by Julita Flores) Other No pertinent family history Family History: Reports: Heart Disease Maternal Family History: Family History (Last Updated 10/30/20 @ 10:15 by Julita Flores) Other No pertinent family history Family History: Reports: Heart Disease Review of Systems General: Denies: Chills, Fever, Sweats Eyes: Denies: Visual changes - bilaterally, Diplopia ENT: Denies: Rhinorrhea, Sore throat Cardiovascular: Denies: Chest pain, Palpitations Respiratory: Denies: Dyspnea, Cough, Dyspnea on exertion Gastrointestinal: Denies: Abdominal pain, Nausea, Vomiting, Diarrhea, Melena, Hematochezia Genitourinary: Denies: Dysuria, Hematuria, Frequency Musculoskeletal: Denies: Back pain, Extremity Pain Skin: Denies: Rash, Wounds Neurological: Reports: Parasthesia, Numbness. Denies: Headache, Weakness STROKE Vital Signs/Narrative: Vital Signs Temp Resp BP Pulse Ox 11/01/20 10:26 97.1 F L 13 170/86 H 98 Inital Vital Signs reviewed: Yes - NIHSS Initial 1a Level of Consciousness: 0 1b LOC Questions (Score 2 if aphasic/stupor): 0 1c LOC Commands (Only score 1st attempt): 0 2 Best Gaze (If aphasic, use reflexive mvmts.): 0 3 Visual: 0 4 Facial Palsy: 0 5 Motor Arm Right (UN = amputation/fusion): 0 5 Motor Arm Left: 0 6 Motor Leg Right: 0 6 Motor Leg Left: 0 7 Limb ataxia (Only + if out of proportion): 0 8 Sensory (Aphasia/stupor=0 or 1, coma=2): 1 9 Best Language: 0 10 Dysarthria (mute, coma=2, intubated=UN): 0 11 Extinction and Inattention (only scored if +): 0 Total Score: 1 General: Well nourished, Well developed, - - Well-appearing no distress Head: Normocephalic, Atraumatic Eyes: Perrl, EOMI ENT: Moist mucous membranes, No rhinorrhea Neck: Supple, Nontender, No JVD Cardiovascular: Regular rate, Regular rhythm, No murmurs Respiratory: No distress, CTA bilaterally, Chest nontender Abdomen: Soft, Nontender, Nondistended, Normal bowel sounds Back: Nontender, Normal Inspection Extremities: Nontender, No edema. Negative for: Calf Tenderness Skin: Normal color, No rash, No Trauma Neurological: Alert, Oriented x3, Cranial nerves II-XII grossly intact, Normal Strength, Parasthesia Psychological: Normal affect, Normal Mood Diagnostic/Tx/Re-eval Impressions Brain CT 11/01/20 11:00 IMPRESSION: Normal unenhanced CT scan of the brain. Opacification of the ethmoid sinuses. N.B. : The above information has been verbally conveyed by Amor Vazquez MD to Oz Guerra MD, on 11/01/2020 11:10:31 (ET). Electronically Signed: Amor aVzquez MD at 11:11 EST , Service support , ADDENDUM: 11/01/20 1118 IMPRESSION: Normal unenhanced CT scan of the brain. Opacification of the ethmoid sinuses. N.B. : The above information has been verbally conveyed by Amor Vazquez MD to Oz Guerra MD, on 11/01/2020 11:10:31 (ET). Electronically Signed: Amor Vazquez MD at 11:11 EST , Service support , Head/Neck CTA 11/01/20 11:19 IMPRESSION: Atherosclerotic plaque at the origin of the left internal carotid artery causing less than 50% narrowing. Sinusitis. Electronically Signed: Amor Vazquez MD at 12:00 EST , Service support , Chest X-Ray 11/01/20 11:20 IMPRESSION: Hyperinflation. The lungs are clear. Electronically Signed: Amor Vazquez MD at 11:59 EST , Service support , 11/01/20 11:00 STROKE Brain/Head without Cont [CT] Stat 11/01/20 11:19 CTA Head AND Neck W/ Contrast [CT] Stat 11/01/20 11:20 Chest 1 View [RAD] Stat Laboratory Results 11/01/20 11/01/20 11/01/20 10:30 10:30 10:30 WBC 7.0 RBC 4.62 Hgb 15.1 Hct 45.2 MCV 97.8 H MCH 32.7 H MCHC 33.4 RDW Std Deviation 46.7 H RDW Coeff of Jairo 13.2 Plt Count 297 MPV 9.6 Immature Gran % (Auto) 0.300 Neut % (Auto) 61.0 Lymph % (Auto) 27.4 Scott % (Auto) 9.0 Eos % (Auto) 1.6 Baso % (Auto) 0.7 Absolute Neuts (auto) 4.3 Absolute Lymphs (auto) 1.92 Nucleated RBC % 0 PT 12.8 INR 1.0 APTT 24.9 Sodium 138 Potassium 4.0 Chloride 106 Carbon Dioxide 28.0 Anion Gap 4 L BUN 10 Creatinine 1.01 Estim Creat Clear Calc 79.72 Est GFR (MDRD) Af Amer 97 Est GFR (MDRD) Non-Af 81 BUN/Creatinine Ratio 9.9 L Glucose 150 H Calcium 9.1 Troponin I < 0.015 - Rhythm Strip Rhythm Strip: Sinus Rhythm Rate: 88 Ectopy: None - EKG Initial EKG Interpretation: Sinus Rhythm, No Acute Injury Pattern - Normal EKG Prior: Unchanged - Medical Decision Making Stroke Team Activated: Yes - After ED physician evaluation Reviewed Inclusion/Exclusion criteria: Yes Was Patient considered for Endovascular Intervention?: No - Negative CTA IV Alteplase (t-PA) Administered: No - See below Upon my evaluation, since the patient had the symptoms suddenly started just prior to arrival, it became evident that stroke is less likely but in the differential here, so I had a stroke team called immediately. CT was obtained quickly and is negative, I was called with the results by the radiologist. I was at the bedside during the telestroke evaluation, the neurologist, I, the patient, and his all agreed that since his NIH is low and he does not have a disabling deficit, TPA is not indicated at this time. I did discuss the risks and benefits of administering TPA with the patient and he was in agreement that he preferred not to have it if it was not recommended. Neurologist recommended CT angiography of the head and neck which was performed and showed less than 50% stenosis of the left internal carotid artery but otherwise unremarkable. I discussed this with the neurologist, and he does not recommend emergent neurovascular consultation but does recommended as an outpatient. The phone number for the [facility] outpatient neurosurgery clinic that he would like the patient to follow-up with is [phone]. This information was given to the patient's . Discussed with hospitalist for inpatient observation for further evaluation of work-up for possible stroke and TIA. Cervical spine disease and certainly in the differential diagnosis here, but the patient has no acute electrolyte imbalances or anemia to suggest B12 deficiency. On reevaluation, the patient symptoms are improving but still present. NIHSS is still 1. Critical care time (excluding procedures): 30-74 minutes - 35 minutes, including time spent discussing with patient and family, multiple bedside reevaluations and direct patient care, discussion with consultants and arranging admission. ED Disposition - Plan for ED Patient: Disposition: Acute Care Hospital [facility] Diagnosis: Paresthesia of right arm and leg Referrals: Ila Pacheco MD [Primary Care Provider] -
--- NOTE | 2020-11-01 11:00 | CT_ITS ---
STUDY: CT HEAD STROKE PROTOCOL W/O CONTRAST INJECTION REASON FOR EXAM: Male, 60 years old. NEURO DEFICIT RADIATION DOSAGE (If Supplied By Facility): CTDIvol = ( 44.99 ) mGy, DLP = ( 745.49 ) mGycm TECHNIQUE: Transaxial CT imaging of the brain was performed without administration of intravenous contrast material. Individualized dose optimization techniques were used for this CT. COMPARISON: Comparison is made with prior study dated 11/04/2016. FINDINGS: Normal soft tissue structures. Normal calvarium. Normal size ventricles and extra-axial spaces for the patient''s age. Normal white matter tracts of the cerebral hemispheres. Normal basal ganglia and thalami. Normal brainstem. Normal cerebellum. There is no intracranial hemorrhage. There are no findings of an acute ischemic infarction. Opacification of the ethmoid sinuses bilaterally. CT/STROKE Brain/Head without Cont IMPRESSION: Normal unenhanced CT scan of the brain. Opacification of the ethmoid sinuses. N.B. : The above information has been verbally conveyed by Amor Vazquez MD to Oz Guerra MD, on 11/01/2020 11:10:31 (ET). Electronically Signed: Amor Vazquez MD at 11:11 EST , Service support ,
[2020-11-01 11:06] LABS: Absolute Lymphocyte Count 1.92 X10^3/uL (0.83-4.51); Absolute Neutrophil Count 4.3 X10^3/uL (2.0-7.7); Basophil# 0.05 X10^3/uL; Basophil% 0.7 % (0-1); Eosinophil# 0.11 X10^3/uL; Eosinophils% 1.6 % (0-5); Hematocrit 45.2 % (40-54); Hemoglobin 15.1 g/dL (13.0-16.5); Lymphocyte # 1.92 X10^3/ul (4.0); Lymphocyte % 27.4 % (19-41); Mean Corp Hgb Conc 33.4 g/dL (32-36); Mean Corpuscular Hgb 32.7 pg (27.0-32.0); Mean Corpuscular Volume 97.8 fL (80-94); Mean Platelet Vol. 9.6 fl (6.2-12.0); Monocyte# 0.63 X10^3/uL; NRBC Flagged by Analyzer 0 % (0-5); Neutrophil # 4.27 X10^3/uL (2.7-7.7); Platelet Count 297 K/mm3 (150-450); RBC Distribution Width CV 13.2 % (11.6-14.6); RBC Distribution Width SD 46.7 fl (35.1-43.9); Red Blood Count 4.62 M/mm3 (4.6-6.2)
[2020-11-01 11:12] LABS: Prothrombin Time (Protime)PT. 12.8 SECONDS (11.7-14.9)
[2020-11-01 11:14] LABS: Partial Thromboplast Time 24.9 Seconds (24.1-36.2)
--- NOTE | 2020-11-01 11:19 | CT_ITS ---
STUDY: CTA HEAD AND NECK WITH CONTRAST REASON FOR EXAM: Male, 60 years old. NUMBNESS AND TINGLING ON RIGHT SIDE RADIATION DOSAGE (If Supplied By Facility): CTDIvol = ( 17.325 ) mGy, DLP = ( 722.71 ) mGycm TECHNIQUE: CT angiography was performed with a multi-detector CT scanner. Data acquisition was obtained from the skull base through the vertex following intravenous administration of IV 100mL Isovue-[id number]. MIP images were reconstructed from the axial data set. Post-processing of the angiographic images was performed, with multiplanar reformation and 3D reconstruction. Individualized dose optimization techniques were used for this CT. COMPARISON: No relevant priors. FINDINGS: Normal bilateral petrous carotid arteries. Normal right cavernous carotid artery with a normal supraclinoid bifurcation. Normal left cavernous carotid artery with a normal supraclinoid bifurcation. Normal right A1 segments of the anterior cerebral artery. Normal left A1 segments of the anterior cerebral artery. Normal intact anterior communicating artery (ACOM). Normal bilateral A2 segments of the anterior cerebral arteries. Normal right M1 and M2 segments of the middle cerebral arteries, with a normal M1 bifurcation. Normal left M1 and M2 segments of the middle cerebral arteries, with a normal M1 bifurcation. Normal right posterior communicating artery (PCOM). Normal left posterior communicating artery (PCOM). Normal bilateral vertebral arteries. Normal basilar artery with a normal basilar bifurcation. The visualized bilateral superior cerebellar (SCA) arteries are normal. Normal bilateral P1, P2 and visualized P3 segments of the posterior cerebral arteries. There is no demonstrated aneurysm of the [place] of [place]. Opacification of the left maxillary sinus. Mucosal thickening of the right maxillary sinus. Partial opacification of the ethmoid sinuses. AORTIC ARCH: Normal visualized aortic arch. Normal origins of the brachiocephalic, left common carotid, and left subclavian arteries. RIGHT CAROTID ARTERIES: Normal right common carotid artery (CCA). Normal right common carotid bulb. Normal origin of the right internal carotid (ICA) artery without a hemodynamically significant stenosis. Normal visualized cervical portion of the right internal carotid artery. Normal origin of the right external carotid artery (ECA). LEFT CAROTID ARTERIES: Normal left common carotid artery (CCA). Normal left common carotid bulb. There is mild atherosclerotic plaque formation of the origin of the left internal carotid artery with less than 50% cross sectional diameter stenosis. Normal visualized cervical portion of the left internal carotid artery. Normal origin of the left external carotid artery (ECA). VERTEBRAL ARTERIES: Normal bilateral vertebral arteries. CT/CTA Head AND Neck W/ Contrast IMPRESSION: Atherosclerotic plaque at the origin of the left internal carotid artery causing less than 50% narrowing. Sinusitis. Electronically Signed: Amor Vazquez MD at 12:00 EST , Service support ,
--- NOTE | 2020-11-01 11:20 | RAD_ITS ---
STUDY: X-RAY CHEST REASON FOR EXAM: Male, 60 years old. Neuro deficit, acute TECHNIQUE: Single AP portable view of the chest. COMPARISON: Comparison is made with prior study dated 04/18/2018. FINDINGS: EKG electrodes are seen. Hyperinflation. The lungs are clear. There is no demonstrated pleural abnormality. Normal size heart. Normal mediastinum and phillip. Normal visualized pulmonary arteries. Normal visualized aortic arch and descending thoracic aorta. Normal visualized thoracic spine. Normal visualized ribs, clavicles, and shoulders. There is no demonstrated abnormality of the visualized soft tissue structures of the upper abdomen. RAD/Chest 1 View IMPRESSION: Hyperinflation. The lungs are clear. Electronically Signed: Amor Vazquez MD at 11:59 EST , Service support ,
[2020-11-01 11:22] LABS: Anion Gap 4 (5-15); BUN 10 mg/dL (7-18); BUN/Creat Ratio 9.9 RATIO (10-20); Calcium,Total 9.1 mg/dL (8.5-10.1); Chloride 106 mmol/L (98-107); Creatinine, Serum 1.01 mg/dL (0.70-1.30); EST Glomerular Filtration Rate 81 mL/min (>60); Est Glom Filt Rate - Afr Amer 97 mL/min (>60); Estimated Creatinine Clearance 79.72 ml/min; Glucose 150 mg/dL (74-106); Sodium Level 138 mmol/L (136-145)
--- NOTE | 2020-11-01 12:36 | HP.PCM_ITS ---
Problem List (1) TIA (transient ischemic attack) Status: Acute (2) Hypertension Status: Chronic (3) Hyperlipidemia Status: Chronic History of Present Illness Date of Admission: 11/01/20 Chief Complaint: Right-sided tingling and numbness The patient is a 60 year old M with past medical history of hypertension, hyperlipidemia, chronic smoker who comes in with sudden onset of right-sided tingling and numbness that happened around 9:00 am. Patient denied having any episode like that. He was sitting down when he had a shooting tingling numbness sensation. He walked around a little bit but it was persistent. It went up his arm down the side of his body and into his legs. He denied any diaphoresis or shortness of breath or chest pain or any weakness. At the time of being seen, the tingling numbness is still present but a little improved. Admitting NIHSS score was 1. [facility] was consulted emergently and TPA was not recommended. Vitals in the ED showed temperature of 97.1F, blood pressure 170/86, respiratory rate 13, SPO2 was 98% on room air. Admitting CBCD is unremarkable, INR 1.2, BMP is also unremarkable. CT of the head was unremarkable., CTA of the head and neck showed less than 50% narrowing at the origin of the left internal carotid artery. Chest x-ray was unremarkable. MRI of the brain with possible small punctate left thalamic infarct, acute Past Medical History Past Medical History (Chronic Problems): Chronic Problems (Last Updated 10/30/20 @ 10:15 by Julita Flores) Hypertension (Chronic) Hyperlipidemia (Chronic) Tobacco abuse (Chronic) Annual CT of the chest due in July Asthma (Chronic) Medical History: Medical History (Last Updated 10/30/20 @ 10:15 by Julita Flores) No pertinent family history Z78.9 COPD (chronic obstructive pulmonary disease) J44.9 HTN (hypertension) I10 High cholesterol E78.00 Seasonal allergies J30.2 Allergies peanut Allergy (Severe, Verified 11/01/20 10:31) Anaphylaxis Sulfa (Sulfonamide Antibiotics) Allergy (Severe, Verified 11/01/20 10:31) Anaphylaxis NUTS Allergy (Severe, Uncoded 11/01/20 10:31) Anaphylaxis seasonal allergies Allergy (Mild, Uncoded 11/01/20 10:31) Other Home Medications: Ambulatory Orders Medication Instructions Recorded Losartan Potassium [Cozaar] 100 mg PO DAILY 08/22/15 Atorvastatin Calcium [Lipitor] 20 mg PO QHS 04/18/18 Montelukast [Singulair] 10 mg PO QHS 04/18/18 cetirizine 10 mg capsule 10 mg PO DAILY 07/11/18 albuterol sulfate 90 mcg/actuation 1 - 2 puff INHALATION Q4H PRN PRN 09/09/20 aerosol inhaler #1 inhaler fluticasone propionate 230 2 puff INHALATION BID #12 g 10/30/20 mcg-salmeterol 21 mcg/actuation HFA inhaler Clobetasol Propionate/Emoll 2 applic TP BID PRN PRN 11/01/20 [Clobetasol Emulsion 0.05% Foam] Surgical History: Surgical History (Last Updated 10/30/20 @ 10:15 by Julita Flores) No pertinent past surgical history Z78.9 Surgical History: tonsillectomy - At age 6 Psychiatric History: No pertinent psych hx Lives: Spouse/ Significant Other Smoking Status: Current every day smoker Tobacco Use: Cigarettes Alcohol: Heavy Drugs: None - *Family History Paternal Family History: Family History (Last Updated 10/30/20 @ 10:15 by Julita Flores) Other No pertinent family history History Items: Heart Disease Maternal Family History: Family History (Last Updated 10/30/20 @ 10:15 by Julita Flores) Other No pertinent family history History Items: Heart Disease Review of Systems Constitutional: Denies: Anorexia, Chills, Fever, Malaise, Weakness, Weight Change, Fatigue Eyes: Denies: Blurred vision, Cataracts, Conjunctivae Inflammation, Pain, Redness, Vision Change HEENT: Denies: Head Aches, Hearing Changes, Sinus Congestion, Sinus Drainage Cardiovascular: Denies: Chest Pain, Claudication, Orthopnea, Palpitations Respiratory: Denies: Cough, Hemoptysis, Shortness of breath at rest, Shortness of breath upon exertion, Sputum production Gastrointestinal: Denies: Abdominal Pain, Nausea, Vomiting Genitourinary: Denies: Dysuria Musculoskeletal: Denies: Joint Pain, Joint Tenderness Skin: Denies: Pruritis, Rash, Wounds Neurological: Denies: Difficulty swallowing, Focal weakness, Numbness, Tingling Psychiatric: Denies: Anxiety, Depression, Homicidal Ideations, Suicidal Ideations Hematologic/ Lymphatic: Denies: Easy Bruising, Easy Bleeding VTE Information - Inpt Only VTE Present on Admission: No VTE Pharm Prophylaxis ordered?: Yes Patient Problems: Active and Suspected Problems (Last Updated 10/30/20 @ 10:15 by Julita Flores) Paresthesia of right arm and leg (Acute) TIA (transient ischemic attack) (Acute) - Physical Exam Vitals/I&O's: Vital Signs Temp Pulse Resp BP Pulse Ox 97.1 F L 85 16 144/93 H 95 11/01/20 12:30 11/01/20 12:30 11/01/20 12:30 11/01/20 12:30 11/01/20 12:30 Oxygen Flow Rate (L/min) 100 Oxygen Delivery Method Room Air Weight: 75.2 kg Body Mass Index (BMI) 24.5 Finger Stick Blood Glucose 173 Intake and Output for Last 24 Hours 10/30/20 10/31/20 11/01/20 23:59 23:59 23:59 Intake Total 500 / 500 Balance 500 / 500 General: Alert, Oriented x3, Cooperative, No apparent distress HEENT: Atraumatic, PERRLA, EOMI, Normocephalic Oral: Moist Mucosa Neck: Supple Lungs: Clear to auscultation, Normal air movement Cardiovascular: Regular rate, Regular Rhythm, Normal S1, Normal S2, No murmurs Abdomen: Bowel Sounds Present, Soft, Non Tender, Non-Distended, No Hepato- splenomegaly Extremities: No edema Skin: No rashes Musculoskeletal: No Tenderness to Palpation of Joints or Extremities Lymphatic: No Cervical, Supraclavicular, or Inguinal Adenopathy Neurological: Cranial nerves II-XII grossly intact, Neuro grossly intact Psych/Mental Status: Normal Affect, Appropriate Laboratory Results 11/01/20 10:30: WBC 7.0, RBC 4.62, Hgb 15.1, Hct 45.2, MCV 97.8 H, MCH 32.7 H, MCHC 33.4, RDW Std Deviation 46.7 H, RDW Coeff of J[place] 13.2, Plt Count 297, MPV 9.6, Immature Gran % (Auto) 0.300, Neut % (Auto) 61.0, Lymph % (Auto) 27.4, [place] % (Auto) 9.0, Eos % (Auto) 1.6, Baso % (Auto) 0.7, Absolute Neuts (auto) 4.3, Absolute Lymphs (auto) 1.92, Nucleated RBC % 0 11/01/20 10:30: PT 12.8, INR 1.0, APTT 24.9 11/01/20 10:30: Sodium 138, Potassium 4.0, Chloride 106, Carbon Dioxide 28.0, Anion Gap 4 L, BUN 10, Creatinine 1.01, Estim Creat Clear Calc 79.72, Est GFR (MDRD) Af Amer 97, Est GFR (MDRD) Non-Af 81, BUN/Creatinine Ratio 9.9 L, Glucose 150 H, Calcium 9.1, Troponin I < 0.015 Current Medications Sodium Chloride () 500 mls @ 999 mls/hr IV .Q31M ONE Last Infusion: 11/01/20 11:58 Dose: Infused Documented by: Iopamidol (Contrast Allergy Safety Check) 0 ml IV X1 SUSAN Last Admin: 11/01/20 12:32 Dose: Not Given Documented by: Labetalol HCl (Labetalol (Prefilled) 20 Mg/4 Ml) 20 mg IV X1 PRN PRN Reason: BLOOD PRESSURE Assessment/Plan All Active Problems (Last Updated 10/30/20 @ 10:15 by Julita Flores) Paresthesia of right arm and leg (Acute) TIA (transient ischemic attack) (Acute) PND (post-nasal drip) (Acute) Shortness of breath (Acute) 1. 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 Patient has multiple risk factors including hypertension, hyperlipidemia, chronic smoker CTA of the head showed less than 50% stenosis in the left carotid artery. We will admit to PCU, continue on stroke protocol, check HbA1c, lipid profile, 2D echo SOC consult, start aspirin, increase atorvastatin to 40 mg p.o. nightly PT/OT/ST to evaluate and treat 2. Hypertension, controlled, hold blood pressure medication allowing for permissive hypertension 3. Hypercholesterolemia, continue on increased atorvastatin 40 mg p.o. nightly 4. Chronic nicotine use, advised to quit, patient refused replacement 5. DVT PPx- Lovenox SC Inpatient E&M: 36784 Init Hosp L3
--- NOTE | 2020-11-01 13:36 | ECHOD_ITS ---
Reason For Study: TIA/CVA Procedure This was a 2D Doppler, Color Flow transthoracic echocardiogram. Exam performed portable in patient room. Left Ventricle Normal left ventricle. The estimated ejection fraction is 55-60 %. Right Ventricle Normal systolic function. Atria Normal left atrium. Normal right atrium. Mitral Valve The mitral valve is structurally normal. No prolapse or stenosis seen. No mitral valve insufficiency. Tricuspid Valve Normal tricuspid valve. Mild tricuspid valve insufficiency. Aortic Valve Trivial aortic valve insufficiency. Pulmonic Valve The pulmonic valve is not well visualized. Great Vessels Normal aortic root. Pericardium/Pleural No pericardial effusion. Medication Performed a rapid injection of agitated mix of 9 cc saline and 1cc air to assess for atrial septal defect. MMode/2D Measurements & Calculations LVIDd: 4.7 cm IVSd: 1.1 cm Ao root diam: 3.1 cm LVIDs: 3.3 cm LVPWd: 1.1 cm RVDd: 4.1 cm FS: 29.6 % LAV(MOD-bp): 39.5 ml LA A4 area: 15.2 cm2 LA dimension(2D): 3.6 cm LAV(MOD-bp) Indexed: 20.3 ml/m2 LAV(MOD-sp2): 36.6 ml LAV(MOD-sp4): 38.4 ml RA A4 area: 14.1 cm2 Time Measurements MV dec time: 0.14 sec Doppler Measurements & Calculations MV E max geremias: 54.5 cm/sec Lat Peak E' Geremias: 11.8 cm/sec Med Peak E' Geremias: 8.3 cm/sec MV A max geremias: 71.0 cm/sec E/E' lat: 4.6 E/E' med: 6.5 MV E/A: 0.77 Ao V2 max: 118.1 cm/sec LV V1 max: 100.2 cm/sec TR max geremias: 262.0 cm/sec Ao max P.6 mmHg LV V1 max P.0 mmHg TR max P.4 mmHg Interpretation Summary Nor,al LV systolic function The estimated ejection fraction is 55-60 %. Mild TR Trivial AI Ordering Physician: Ashanti Rogers Referring Physician: JUAN ALBERTO CHING Performed By: Emerald Avendano, EMEKA, RVT
--- NOTE | 2020-11-01 13:36 | MRI_ITS ---
We are attempting to reach an attending provider to discuss findings. An addendum with communication details will be sent when the communication is complete. STUDY: MRI BRAIN WITHOUT CONTRAST REASON FOR EXAM: Male, 60 years old. Possible stroke, right-sided numbness since a.m. TECHNIQUE: Standardized multiplanar fat and water weighted pulse sequences were obtained. COMPARISON: CT head same day FINDINGS: There is a punctate same left thalamic focus of increased DWI signal with possible corresponding mildly decreased ADC. There is no acute territorial infarction. There is no mass effect, extra parenchymal fluid collections, hydrocephalus or herniation. There is a dilated. Vascular spaces in the right basal ganglia. Major vascular flow structures are intact. Craniocervical junction is unremarkable. MRI/Brain without Contrast IMPRESSION: 1. Possible small punctate left thalamic infarct, acute or late acute. 2. No acute territorial infarction. Electronically Signed: Lisa Gonzalez MD at 15:56 EST Tel , Service support ,
[2020-11-01] MEDS: 0.9% Normal Saline 1,000 ML 75 ML IV (16:16)
--- NOTE | 2020-11-01 16:27 | TELEMED_ITS ---
[facility] Telemed has confirmed receipt of a request for visit. This document confirms receipt of the order initiating the consult. To find the results of the consultation, please view the patient's reports for the scanned Telemed Consult.
[2020-11-01 17:42] LABS: AST(SGOT) 26 U/L (15-37); Alanine Aminotransfer ALT/SGPT 41 U/L (16-61); Albumin, Serum 3.8 g/dL (3.2-5.0); Alkaline Phosphatase 81 U/L (45-117); Protein, Total 7.8 g/dL (6.4-8.2)
[2020-11-01] MEDS: Aspirin 81 MG TAB.CHEW PO (18:02)
[2020-11-01 18:24] LABS: Hemoglobin A1c 5.6 % (3.8-5.6)
[2020-11-01] MEDS: Montelukast 10 MG Tablet PO (21:39)
[2020-11-01] MEDS: Atorvastatin Calcium 40 MG Tablet PO (21:39)
--- NOTE | 2020-11-01 22:49 | PCS.PANDOC ---
PANDEMIC DOCUMENTATION INITIATED: Date: 11/01/2020 Time: 190
[2020-11-02] VITALS (7 sets, daily range): BP systolic 132–142; BP diastolic 76–82; PULSE 69–86; RESP 15–16; TEMP 36.6–36.7; O2SAT 96–98
[2020-11-02] MEDS: Enoxaparin 40 MG/0.4 ML Syringe SC (05:17)
--- NOTE | 2020-11-02 07:36 | PCM.DC ---
- Discharge Diagnoses Current Active Problems: Current Active and Chronic Problems (Last Updated 10/30/20 @ 10:15 by Julita Flores) Hypertension (Chronic) Hyperlipidemia (Chronic) Paresthesia of right arm and leg (Acute) TIA (transient ischemic attack) (Acute) Asthma (Chronic) Reason(s) for Visit for Discharge Instructions: Acute CVA You will use the following diet at home:: Cardiac Your food should be the consistency of: Regular Your liquids should be the consistency of: Regular/Thin Discharge Activity: Return to Normal Activity Additional Instructions: You are strongly advised to quit smoking. Continue to take all your medications as prescribed. Continue to remain active. Follow a low-salt, low-fat diet. Allergies/Adverse Reactions: Allergies peanut Allergy (Severe, Verified 11/01/20 10:31) Anaphylaxis Sulfa (Sulfonamide Antibiotics) Allergy (Severe, Verified 11/01/20 10:31) Anaphylaxis NUTS Allergy (Severe, Uncoded 11/01/20 10:31) Anaphylaxis seasonal allergies Allergy (Mild, Uncoded 11/01/20 10:31) Other Medications to take at Discharge Losartan Potassium [Cozaar] 100 mg PO DAILY 08/22/15 Montelukast [Singulair] 10 mg PO QHS 04/18/18 cetirizine 10 mg capsule 10 mg PO DAILY 07/11/18 albuterol sulfate 90 mcg/actuation aerosol inhaler 1 - 2 puff INHALATION Q4H PRN PRN #1 inhaler 09/09/20 fluticasone propionate 230 mcg-salmeterol 21 mcg/actuation HFA inhaler 2 puff INHALATION BID #12 g 10/30/20 Clobetasol Propionate/Emoll [Clobetasol Emulsion 0.05% Foam] 2 applic TP BID PRN PRN 11/01/20 Aspirin [Aspirin, Baby] 81 mg PO DAILY@0800 30 Days #30 tab.chew 11/02/20 Atorvastatin Calcium [Lipitor] 40 mg PO QHS 30 Days #30 tab 11/02/20 The following prescriptions were given: Aspirin [Aspirin, Baby] 81 mg PO DAILY@0800 30 Days #30 tab.chew Transmission Status: Received by [facility] Atorvastatin Calcium [Lipitor] 40 mg PO QHS 30 Days #30 tab Transmission Status: Received by [facility] Primary Care Physician: Ila Pacheco MD [Primary Care Provider] - Please follow up with your Primary Care Physician in: within 1-2 weeks Test Results: Test results from this visit will be discussed in further detail at your follow-up appointment, if applicable. Please Follow Up With: Kendall Madera MD When: In 2 to 4 weeks. Proposed Discharge Date: 11/02/20
--- NOTE | 2020-11-02 07:37 | PCM.DC.SUM ---
Discharge Date and Diagnosis - Problem List Patient Problems: Active and Suspected Problems (Last Updated 10/30/20 @ 10:15 by Julita Flores) Paresthesia of right arm and leg (Acute) TIA (transient ischemic attack) (Acute) Date of Admission: 11/01/20 Date of Discharge: 11/02/20 - Primary Discharge Diagnosis Acute Problems: Active Problems (Last Updated 10/30/20 @ 10:15 by Julita Flores) Acute CVA - Secondary Discharge Diagnosis Chronic Problems: Chronic Problems (Last Updated 10/30/20 @ 10:15 by Julita Flores) Hypertension (Chronic) Hyperlipidemia (Chronic) Tobacco abuse (Chronic) Annual CT of the chest due in July Asthma (Chronic) Hospital Course and Treatment Imaging Results: Clinical Impression(s) from Imaging Studies Brain CT 11/01/20 11:00 IMPRESSION: Normal unenhanced CT scan of the brain. Opacification of the ethmoid sinuses. N.B. : The above information has been verbally conveyed by Amor Vazquez MD to Oz Guerra MD, on 11/01/2020 11:10:31 (ET). Electronically Signed: Amor Vazquez MD at 11:11 EST , Service support , ADDENDUM: 11/01/20 1118 IMPRESSION: Normal unenhanced CT scan of the brain. Opacification of the ethmoid sinuses. N.B. : The above information has been verbally conveyed by Amor Vazquez MD to Oz Guerra MD, on 11/01/2020 11:10:31 (ET). Electronically Signed: Amor Vazquez MD at 11:11 EST , Service support , Head/Neck CTA 11/01/20 11:19 IMPRESSION: Atherosclerotic plaque at the origin of the left internal carotid artery causing less than 50% narrowing. Sinusitis. Electronically Signed: Amor Vazquez MD at 12:00 EST , Service support , Chest X-Ray 11/01/20 11:20 IMPRESSION: Hyperinflation. The lungs are clear. Electronically Signed: Amor Vazquez MD at 11:59 EST , Service support , Brain MRI 11/01/20 13:36 IMPRESSION: 1. Possible small punctate left thalamic infarct, acute or late acute. 2. No acute territorial infarction. Electronically Signed: Lisa Gonzalez MD at 15:56 EST Tel , Service support , ADDENDUM: 11/01/20 1625 IMPRESSION: 1. Possible small punctate left thalamic infarct, acute or late acute. 2. No acute territorial infarction. N.B. : The above information has been verbally conveyed by Lisa Gonzalez MD to RN Aunrag Heller RN, on 11/01/2020 16:18:02 (ET). Electronically Signed: Lisa Gonzalez MD at 15:56 EST Tel , Service support , Tele-neurology Operations: None Procedures: 2-D Echocardiogram Summary of Care Provided: 60 year old M with past medical history of hypertension, hyperlipidemia, chronic smoker who comes in with sudden onset of right-sided tingling and numbness that happened around 9:00 am. Patient denied having any episode like that. He was sitting down at his home office desk when he had a shooting tingling numbness sensation from his elbow up his upper body and down into his legs on the right side. He walked around a little bit but it was persistent. He denied any diaphoresis or shortness of breath or chest pain or any weakness. At the time of being seen, the tingling numbness is still present but a little improved. Admitting NIHSS score was 1. [facility] was consulted emergently and TPA was not recommended. Patient was admitted to the telemetry floor, monitored per stroke protocol. No acute events overnight. No atrial fibrillation on telemetry. MRI of the brain showed small left thalamic infarct. CTA of the head and neck was unremarkable. Patient had 2D echo that showed normal EF, no valvular lesions. His HbA1c was 5.6, total cholesterol is 174, LDL 92, HDL 61. He was started on aspirin, atorvastatin 40 mg daily. He was strongly advised to quit smoking. He stated that he will go for outpatient resources/intervention from his 's office benefits. Patient will follow up with his primary care doctor and outpatient neurology in 2 weeks Patient Problems: Active and Suspected Problems (Last Updated 10/30/20 @ 10:15 by Julita Flores) Paresthesia of right arm and leg (Acute) TIA (transient ischemic attack) (Acute) Subjective: On the day of discharge, patient was seen and examined. Denied any new complaint. Still had some very mild numbness from his abdomen down to the legs. Objective: Physical exam: General: Alert, Oriented x3, Cooperative, No apparent distress HEENT: Atraumatic, PERRLA, EOMI, Normocephalic Oral: Moist Mucosa Neck: Supple Lungs: Clear to auscultation, Normal air movement Cardiovascular: Regular rate, Regular Rhythm, Normal S1, Normal S2, No murmurs Abdomen: Bowel Sounds Present, Soft, Non Tender, Non-Distended, No Hepato-splenomegaly Extremities: No edema Skin: No rashes Musculoskeletal: No Tenderness to Palpation of Joints or Extremities Lymphatic: No Cervical, Supraclavicular, or Inguinal Adenopathy Neurological: Cranial nerves II-XII grossly intact, Neuro grossly intact Psych/Mental Status: Normal Affect, Appropriate - Physical Exam Vitals/I&O's: Vital Signs Temp Pulse Resp BP Pulse Ox 98.0 F 69 16 140/80 H 96 11/02/20 05:11 11/02/20 07:10 11/02/20 05:11 11/02/20 05:11 11/02/20 05:11 Oxygen Flow Rate (L/min) 100 Oxygen Delivery Method Room Air Weight: 76.7 kg Body Mass Index (BMI) 25.8 Finger Stick Blood Glucose 173 Intake and Output for Last 24 Hours 10/31/20 11/01/20 11/02/20 23:59 23:59 23:59 Intake Total 707.5 / 707.5 50 / 50 Balance 707.5 / 707.5 50 / 50 Laboratory Results 11/01/20 10:30: WBC 7.0, RBC 4.62, Hgb 15.1, Hct 45.2, MCV 97.8 H, MCH 32.7 H, MCHC 33.4, RDW Std Deviation 46.7 H, RDW Coeff of Jairo 13.2, Plt Count 297, MPV 9.6, Immature Gran % (Auto) 0.300, Neut % (Auto) 61.0, Lymph % (Auto) 27.4, [place]quois % (Auto) 9.0, Eos % (Auto) 1.6, Baso % (Auto) 0.7, Absolute Neuts (auto) 4.3, Absolute Lymphs (auto) 1.92, Nucleated RBC % 0 11/01/20 10:30: PT 12.8, INR 1.0, APTT 24.9 11/01/20 10:30: Sodium 138, Potassium 4.0, Chloride 106, Carbon Dioxide 28.0, Anion Gap 4 L, BUN 10, Creatinine 1.01, Estim Creat Clear Calc 79.72, Est GFR (MDRD) Af Amer 97, Est GFR (MDRD) Non-Af 81, BUN/Creatinine Ratio 9.9 L, Glucose 150 H, Calcium 9.1, Troponin I < 0.015 11/01/20 10:30: Hemoglobin A1c 5.6 11/01/20 14:22: Troponin I < 0.015 11/01/20 14:22: Total Bilirubin 0.90, Direct Bilirubin 0.20, AST 26, ALT 41, Alkaline Phosphatase 81, Total Protein 7.8, Albumin 3.8, Globulin 4.0 11/01/20 17:08: Troponin I < 0.015 11/02/20 07:21: WBC Pending, RBC Pending, Hgb Pending, Hct Pending, MCV Pending, MCH Pending, MCHC Pending, RDW Std Deviation Pending, RDW Coeff of Jairo Pending, Plt Count Pending, Neut % (Auto) Pending, Absolute Neuts (auto) Pending 11/02/20 07:21: Sodium Pending, Potassium Pending, Chloride Pending, Carbon Dioxide Pending, Anion Gap Pending, BUN Pending, Creatinine Pending, Est GFR (MDRD) Af Amer Pending, Est GFR (MDRD) Non-Af Pending, BUN/Creatinine Ratio Pending, Glucose Pending, Calcium Pending, Total Bilirubin Pending, AST Pending, ALT Pending, Alkaline Phosphatase Pending, Total Protein Pending, Albumin Pending, Triglycerides Pending, Cholesterol Pending, LDL Cholesterol Pending, VLDL Cholesterol Pending, HDL Cholesterol Pending Current Medications Acetaminophen (Acetaminophen 325 Mg Tablet) 650 mg PO Q6H PRN PRN PRN Reason: Pain Score 1-10/Temp > 100.7 F Al Hydroxide/Mg Hydroxide (Mag Hydrox/Al Hydrox/Simeth 30 Ml Udc) 30 ml PO Q6H PRN PRN PRN Reason: Gastric Burning Albuterol Sulfate (Albuterol 2.5 Mg/3 Ml Vial.Neb.) 2.5 mg INHALATION Q2H PRN PRN PRN Reason: SOB/Wheezing Aspirin (Aspirin 81 Mg Tab.Chew) 81 mg PO DAILY@0800 [facility] Last Admin: 11/01/20 18:02 Dose: 81 mg Documented by: Atorvastatin Calcium (Atorvastatin Calcium 40 Mg Tablet) 40 mg PO QHS [facility] Last Admin: 11/01/20 21:39 Dose: 40 mg Documented by: Enoxaparin Sodium (Enoxaparin 40 Mg/0.4 Ml Syringe) 40 mg SC DAILY@0600 [facility] Last Admin: 11/02/20 05:17 Dose: 40 mg Documented by: Sodium Chloride () 500 mls @ 999 mls/hr IV .Q31M ONE Last Infusion: 11/01/20 11:58 Dose: Infused Documented by: Labetalol HCl (Labetalol (Prefilled) 20 Mg/4 Ml) 10 - 20 mg IV Q10M PRN PRN PRN Reason: to Maintain BP Goals Losartan Potassium (Losartan Potassium 100 Mg Tablet) 100 mg PO DAILY [facility] Montelukast Sodium (Montelukast 10 Mg Tablet) 10 mg PO QHS [facility] Last Admin: 11/01/20 21:39 Dose: 10 mg Documented by: Ondansetron HCl (Ondansetron 4 Mg/2 Ml Vial) 4 mg IV Q8H PRN PRN PRN Reason: NAUSEA/VOMITING Sodium Chloride (0.9% Saline Lock 10 Ml Syringe) 10 - 40 ml IV UD PRN PRN Reason: SALINE FLUSH Discharge Diet: Low fat/ Low Cholesterol, 2000 mg Sodium Diet Discharge Activity: Return to Normal Activity Home Medications: Medications to take at Discharge Losartan Potassium [Cozaar] 100 mg PO DAILY 08/22/15 Montelukast [Singulair] 10 mg PO QHS 04/18/18 cetirizine 10 mg capsule 10 mg PO DAILY 07/11/18 albuterol sulfate 90 mcg/actuation aerosol inhaler 1 - 2 puff INHALATION Q4H PRN PRN #1 inhaler 09/09/20 fluticasone propionate 230 mcg-salmeterol 21 mcg/actuation HFA inhaler 2 puff INHALATION BID #12 g 10/30/20 Clobetasol Propionate/Emoll [Clobetasol Emulsion 0.05% Foam] 2 applic TP BID PRN PRN 11/01/20 Aspirin [Aspirin, Baby] 81 mg PO DAILY@0800 30 Days #30 tab.chew 11/02/20 Atorvastatin Calcium [Lipitor] 40 mg PO QHS 30 Days #30 tab 11/02/20 Following Prescriptions Were Given to Patient: Aspirin [Aspirin, Baby] 81 mg PO DAILY@0800 30 Days #30 tab.chew Transmission Status: Received by [id number] Atorvastatin Calcium [Lipitor] 40 mg PO QHS 30 Days #30 tab Transmission Status: Received by [id number] Primary Care Physician: Ila Pacheco MD [Primary Care Provider] - Please follow up with your Primary Care Physician in: within 1-2 weeks Please Follow Up With: Kendall Madera MD When: In 2 to 4 weeks. Disposition: Home Minutes spent on discharge:: 40 Patient Condition:: Stable Medical Necessity - Tobacco Use Smoking Status: Unknown if ever smoked Tobacco Use: Cigarettes Meaningful Use Info Meaningful Use Diagnoses (Choose all that apply): Ischemic CVA - CVA Therapy Assessed for PT,OT and/or ST?: Yes - Ischemic Stroke Antithrombotic order at d/c?: Yes Dx of Atrial fib/flutter?: No Anticoagulant at discharge?: No Reason anticoagulant not ordered: Treatment not Indicated Statins at discharge?: Yes Primary Dx Acute Ischemic CVA?: Yes IV tPA ordered during stay?: No Reason IV t-PA not ordered: Treatment not Indicated Inpatient E&M: [id number] Disch Hosp
[2020-11-02 07:55] LABS: Basophil# 0.04 X10^3/uL; Basophil% 0.5 % (0-1); Eosinophil# 0.29 X10^3/uL; Hematocrit 45.9 % (40-54); Hemoglobin 15.1 g/dL (13.0-16.5); Lymphocyte % 31.3 % (19-41); Mean Corp Hgb Conc 32.9 g/dL (32-36); Mean Corpuscular Hgb 32.1 pg (27.0-32.0); Mean Corpuscular Volume 97.5 fL (80-94); Mean Platelet Vol. 9.6 fl (6.2-12.0); Monocyte# 0.69 X10^3/uL; Monocyte% 9.4 % (0-10); NRBC Flagged by Analyzer 0 % (0-5); Neutrophil % 54.5 % (47-70); Platelet Count 277 K/mm3 (150-450); RBC Distribution Width CV 13.1 % (11.6-14.6); RBC Distribution Width SD 46.6 fl (35.1-43.9); Red Blood Count 4.71 M/mm3 (4.6-6.2); White Blood Count 7.3 K/mm3 (4.4-11.0)
[2020-11-02] MEDS: Losartan Potassium 100 MG Tablet PO (08:03)
[2020-11-02] MEDS: Aspirin 81 MG TAB.CHEW PO (08:03)
[2020-11-02 08:25] LABS: ALB/GLOB Ratio 0.8 RATIO (0.9-2.4); AST(SGOT) 35 U/L (15-37); Alanine Aminotransfer ALT/SGPT 44 U/L (16-61); Albumin, Serum 3.6 g/dL (3.2-5.0); Alkaline Phosphatase 86 U/L (45-117); Anion Gap 6 (5-15); BUN 11 mg/dL (7-18); BUN/Creat Ratio 11.7 RATIO (10-20); Calcium,Total 9.2 mg/dL (8.5-10.1); Chloride 107 mmol/L (98-107); Cholesterol 174 mg/dL (200); Creatinine, Serum 0.94 mg/dL (0.70-1.30); EST Glomerular Filtration Rate 87 mL/min (>60); Est Glom Filt Rate - Afr Amer 105 mL/min (>60); Estimated Creatinine Clearance 85.66 ml/min; Globulin 4.3 g/dL (2.2-4.2); Glucose 103 mg/dL (74-106); High Density Lipoprotein 61 mg/dL; Protein, Total 7.9 g/dL (6.4-8.2); Sodium Level 140 mmol/L (136-145); Triglycerides 107 mg/dL; Very Low Density Lipoprotein 21 mg/dL (5-40)
== END 2020-11-02 07:31 | disposition home or self-care (01) ==
LOC: ED 12:39 → PCU 12:55
PROVIDERS: Admitting Provider Internal Medicine; Emergency Provider Emergency Medicine; PCP Family Medicine; Visit Provider Internal Medicine
DX: I63.9 Cerebral infarction, unspecified (principal); I10 Essential (primary) hypertension; E78.5 Hyperlipidemia, unspecified; Z79.899 Other long term (current) drug therapy; F17.210 Nicotine dependence, cigarettes, uncomplicated; J44.9 Chronic obstructive pulmonary disease, unspecified
CPT/HCPCS: 36415; 70450; 70496; 70498; 70551; 71045; 80048; 80053; 80061; 80076; 83036; 84484; 85025; 85610; 85730; 92610; 93005; 93306; 94762; 96360; 96361; 96372; 97161; 97165; 97802; 99218; 99251; 99285; 99406; J7030; J7040; Q9967; A4216; G0378; G0463

== ENCOUNTER → 2020-11-12 07:40 | Outpatient (CLI) | payer OTHER, SELFPAY ==
[2020-11-01 23:34] VITALS: BMI 25.8
--- NOTE | 2020-11-12 07:41 | CT_ITS ---
STUDY: LOW DOSE CT LUNG CANCER SCREENING REASON FOR EXAM: Male, 60 years old. Tobacco use, quit 2 weeks ago, smoked less than 1 pack/day x 35 YEARS RADIATION DOSAGE (If Supplied By Facility): CTDIvol = ( 3.02 ) mGy, DLP = ( 109.10 ) mGycm TECHNIQUE: No contrast was administered. Low dose technique was utilized (average mAS-38 and kVp 120). 1.25 mm axial source images with a slice interval of 1.25-mm were reconstructed in lung windows. 2.5 mm axial source images with a slice interval of 2.5-mm were reconstructed in lung windows. 5.0 mm axial source images with a slice interval of 5.0-mm were reconstructed in soft tissue windows. Nodule measured using lung windows on PACS and/or independent workstation with automated measurement of minimum and maximum diameter. Nodule measurement reported as average diameter rounded to the nearest whole number. Growth is defined as an increase ins size of greater than 1.5 mm. COMPARISON: Comparison is made with prior examination dated 09/01/2019. NODULES: Stable nodular densities in both lung apices. The largest on the left apex measures 5.2 cm. The largest in the right apex measures 5 mm. Total lung nodules (excluding granulomas): Emphysema: Emphysematous changes more prominent in the upper lobes. Stable mild increased linear markings in the medial aspect of the right middle lobe suggestive of scarring. Endobronchial lesion: None. Aorta: Unremarkable Coronary arteries: Mild coronary artery calcification. Mediastinal nodes: Stable small benign-appearing mediastinal lymph nodes. Other chest and abdominal findings: Mild degenerative changes of the thoracic vertebrae. CT/Low Dose CT Lung Screening IMPRESSION: Lung-RADS category 2 - Continue annual screening with LDCT in 12 months. IMPORTANT NOTES FOR USE: ACR Lung-RADS Version 1.0 Assessment Categories Release Date: January 22, 2014 Category: Coded 0-4 bases on nodule(s) with highest degree of suspicion. Negative screen is defined as categories 1 and 2; a positive screen is defined as categories 3 and 4. Category 3 and 4A nodules that are unchanged on interval CT should be coded as category 2, and individuals returned to screening in 12 months. Category 4X: Category 3 or 4 nodules with additional imaging findings that increase the suspicion of lung cancer, such as spiculation, GGN that doubles in size in 1 year, enlarged lymph notes, etc. Category Modifiers: S (significant finding unrelated to lung cancer) and C (prior history of treated lung cancer) may be added to the 0-4 Lung-RADS Electronically Signed: Amor Vazquez MD at 9:33 EST , Service support ,
== END ==
PROVIDERS: PCP Family Medicine; Referring Provider Internal Medicine Critical Care Medicine; Visit Provider Internal Medicine Critical Care Medicine
DX: Z12.2 Encounter for screening for malignant neoplasm of respiratory organs (principal); F17.210 Nicotine dependence, cigarettes, uncomplicated
CPT/HCPCS: 71271

== ENCOUNTER 2021-02-14 11:06 | Outpatient (RCR) | payer OTHER, SELFPAY ==
[2020-11-01 23:34] VITALS: BMI 25.8
== END 2021-03-21 23:59 ==
LOC: IMMUN 11:06
PROVIDERS: PCP Family Medicine; Referring Provider Family Medicine; Visit Provider Family Medicine
DX: Z23 Encounter for immunization (principal)
CPT/HCPCS: 0001A; 91300

== ENCOUNTER → 2021-08-14 06:59 | Outpatient (CLI) | payer OTHER, SELFPAY ==
[2021-08-14 08:19] LABS: AST(SGOT) 31 U/L (15-37); Alanine Aminotransfer ALT/SGPT 44 U/L (16-61); Anion Gap 1 (5-15); BUN 9 mg/dL (7-18); BUN/Creat Ratio 9.5 RATIO (10-20); Calcium,Total 9.1 mg/dL (8.5-10.1); Chloride 109 mmol/L (98-107); Cholesterol 146 mg/dL (200); Creatinine, Serum 0.95 mg/dL (0.70-1.30); EST Glomerular Filtration Rate 86 mL/min (>60); Est Glom Filt Rate - Afr Amer 105 mL/min (>60); Glucose 115 mg/dL (74-106); High Density Lipoprotein 63 mg/dL; Potassium 4.3 mmol/L (3.5-5.1); Sodium Level 139 mmol/L (136-145); Triglycerides 59 mg/dL; Very Low Density Lipoprotein 12 mg/dL (5-40)
[2021-08-14 10:26] LABS: Microalbumin,Random Urine < 5.0 mg/L (NO RANGE EST.)
== END ==
PROVIDERS: PCP Family Medicine; Referring Provider Family Medicine; Visit Provider Family Medicine
DX: E78.00 Pure hypercholesterolemia, unspecified (principal); I10 Essential (primary) hypertension
CPT/HCPCS: 36415; 80048; 80061; 82043; 82570; 84450; 84460

== ENCOUNTER → 2021-08-20 15:01 | Outpatient (CLI) | payer OTHER, SELFPAY ==
[2021-08-20 17:48] LABS: PSA,Total - Annual Screen 1.08 ng/mL (0.00-4.00)
== END ==
PROVIDERS: PCP Family Medicine; Referring Provider Family Medicine; Visit Provider Nurse Practitioner Family
DX: Z12.5 Encounter for screening for malignant neoplasm of prostate (principal)
CPT/HCPCS: 36415; 84153; G0103

== ENCOUNTER → 2022-07-16 | Outpatient (CLI) | payer OTHER, SELFPAY ==
[2022-07-16 08:43] LABS: Microalbumin,Random Urine < 5.0 mg/L (NO RANGE EST.)
[2022-07-16 09:12] LABS: AST(SGOT) 28 U/L (15-37); Alanine Aminotransfer ALT/SGPT 33 U/L (16-61); Anion Gap 6 (5-15); BUN 11 mg/dL (7-18); BUN/Creat Ratio 11.8 RATIO (10-20); Calcium,Total 9.2 mg/dL (8.5-10.1); Chloride 107 mmol/L (98-107); Cholesterol 163 mg/dL (200); Creatinine, Serum 0.94 mg/dL (0.70-1.30); EST Glomerular Filtration Rate 87 mL/min (>60); Est Glom Filt Rate - Afr Amer 106 mL/min (>60); Glucose 118 mg/dL (74-106); High Density Lipoprotein 65 mg/dL; Potassium 4.3 mmol/L (3.5-5.1); Sodium Level 140 mmol/L (136-145); Triglycerides 61 mg/dL; Very Low Density Lipoprotein 12 mg/dL (5-40)
== END | disposition home or self-care (01) ==
PROVIDERS: PCP Family Medicine; Visit Provider Family Medicine
DX: E78.00 Pure hypercholesterolemia, unspecified (principal); I10 Essential (primary) hypertension; Z12.5 Encounter for screening for malignant neoplasm of prostate
CPT/HCPCS: 36415; 80048; 80061; 82043; 82570; 84450; 84460

== ENCOUNTER → 2022-08-10 | Outpatient (CLI) | payer OTHER, SELFPAY ==
[2022-08-10 15:50] LABS: PSA,Total - Annual Screen 1.05 ng/mL (0.00-4.00)
== END | disposition home or self-care (01) ==
LOC: MFPLAB 11:57
PROVIDERS: PCP Family Medicine; Visit Provider Family Medicine
DX: Z00.00 Encounter for general adult medical examination without abnormal findings (principal)
CPT/HCPCS: 36415; 84153; G0103

== ENCOUNTER → 2023-08-18 | Outpatient (CLI) | payer OTHER, SELFPAY ==
[2023-08-18 11:06] LABS: Hemoglobin A1c 5.4 % (3.8-5.6)
[2023-08-18 11:29] LABS: Microalbumin,Random Urine < 5.0 mg/L (NO RANGE EST.)
[2023-08-18 11:33] LABS: AST(SGOT) 31 U/L (15-37); Alanine Aminotransfer ALT/SGPT 38 U/L (16-61); Anion Gap 6 (5-15); BUN 12 mg/dL (7-18); BUN/Creat Ratio 12.3 RATIO (10-20); Calcium,Total 9.1 mg/dL (8.5-10.1); Chloride 108 mmol/L (98-107); Cholesterol 148 mg/dL (200); Creatinine, Serum 0.97 mg/dL (0.70-1.30); EST Glomerular Filtration Rate 83 mL/min (>60); Est Glom Filt Rate - Afr Amer 101 mL/min (>60); Glucose 111 mg/dL (74-106); High Density Lipoprotein 68 mg/dL; PSA,Total - Annual Screen 1.33 ng/mL (0.00-4.00); Potassium 4.2 mmol/L (3.5-5.1); Sodium Level 139 mmol/L (136-145); Triglycerides 36 mg/dL; Very Low Density Lipoprotein 7 mg/dL (5-40)
== END | disposition home or self-care (01) ==
PROVIDERS: PCP Family Medicine; Visit Provider Family Medicine
DX: R73.9 Hyperglycemia, unspecified (principal); I10 Essential (primary) hypertension; E78.00 Pure hypercholesterolemia, unspecified; Z12.5 Encounter for screening for malignant neoplasm of prostate
CPT/HCPCS: 36415; 80048; 80061; 82043; 82570; 83036; 84153; 84450; 84460; G0103

== ENCOUNTER → 2023-12-14 | Outpatient (CLI) | payer OTHER, SELFPAY ==
--- NOTE | 2023-12-14 09:30 | RAD_ITS ---
STUDY: X-RAY - RIGHT SHOULDER REASON FOR EXAM: Male, 63 years old. Shoulder pain. TECHNIQUE: 4 views of the right shoulder. COMPARISON: None. FINDINGS: Normal glenohumeral articulation. There is mild hypertrophic acromioclavicular arthrosis. Normal acromion. Normal humeral head and visualized proximal humerus. The soft tissue structures are unremarkable. There is no demonstrated fracture. Normal visualized pulmonary apex. RAD/Shoulder min 2 Views IMPRESSION: Mild hypertrophic acromioclavicular arthrosis. No demonstrated fracture. Electronically Signed: Vijay Streeter MD at 10:01 EDT ,
== END | disposition home or self-care (01) ==
LOC: MTRAD 09:27
PROVIDERS: PCP Family Medicine; Referring Provider Family Medicine; Visit Provider Family Medicine
DX: M25.511 Pain in right shoulder (principal)
CPT/HCPCS: 73030

== ENCOUNTER 2023-12-16 07:42 | Outpatient (RCR) | payer OTHER, SELFPAY ==
--- NOTE | 2023-12-16 12:29 | HP.PTEVAL_ITS ---
Patient's Visit Information Visit Information Visit Information: KIKO QUINN is a 63 year old M referred to Physical Therapy by Dr. Ila Pacheco MD with a diagnosis of R shoulder strain. 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 About 2 weeks ago pt was using a hammer for 4 hours straight, which he does not normally have to do for work, noticed some soreness afterwards. The next day he was using an impact hammer (pt works in construction) and felt a large increase in pain in top of shoulder. Pain has gotten a little better since then and has been resting it, pt is still working. Worst pain is at the end of the day when he overworks it, lifting his arm increases pain and feels that it gets weaker as pain increases. Denies any numbness or tingling in RLE, no hx of neck pain. Is a side sleeper and pain wakes him up. Goals: strengthen, be able to use a hammer with less pain Pain Right Shoulder: Pain Intensity (Out of 10): 1 Pain Intensity Range: 1 and 6 Objective Objective: AROM: 160 ABD pain at end, 170 flex *Painful arc from 105 to 180 PROM: ER 85 deg, IR 50 with firm early end feel, full flex and ABD (improved comfort with GH joint long distraction) MMT: L - flex 4+/5, ABD 4/5, IR 4/5, ER 4/5 R - flex 4-/5 pain, ABD 3+/5 pain, IR 4/5, ER 3/5 pain POSTURE: rounded shoulders, increased FHP and thoracic kyphosis DROP ARM: (-) FORDE-JUSTIN: (-) HORNBLOWERS: (+) SPEEDS: (+) EMPTY CAN: (-) Balance/Special Test Scores Quick DASH Score: 25.0000 Goals Goal 1:: Pt will demonstrate full R shoulder ROM with 0/10 pain Goal Time Frame: 4-6 Weeks Goal 2:: Pt will demonstrate symmetrical shoulder strength Goal Time Frame: 4-6 Weeks Goal 3:: Pt will be able to manipulate a hammer and other objects at work with <2/10 pain at worst Goal Time Frame: 4-6 Weeks Rehabilitation Potential Physical Therapy Diagnosis: Pt presents to PT with R shoulder pain with movement, decreased tissue extensibility, and shoulder weakness. Pt would benefit from skilled PT services to address pain, muscular length and tightness, and improving strength to be able to return to work and ADL tasks. Rehabilitation Potential: Excellent Anticipated Interventions Patient/Client Instruction: Educate patient on: Condition and Plan of Care For the Purpose of:: To decrease pain, To decrease swelling/inflammation, To increase ROM, To improve nutrient delivery to tissue, To improve muscle performance and motor function, To improve ability to perform ADL's, To increase tolerance to activity/condition/position, To improve performance and independence with ADL's, To improve ability of physical actions for home/community/work/leisure, To improve health of tissue, To decrease soft tissue restriction, To increase flexibility/ROM, To assume or resume ADL's, To improve health and function, To improve self management, To prevent re-injury, T o improve ability to perform tasks related to life management and To improve tolerance to ADL's Therapeutic Exercise to Include: Strength training, Postural training, Flexibilt y training, Passive ROM and Scapular Strength/Stabilization For the Purpose of:: To decrease pain, To decrease swelling/inflammation, To increase ROM, To improve muscle performance and motor function, To improve ability to perform ADL's, To increase tolerance to activity/condition/position, To improve performance and independence with ADL's, To improve ability of physical actions for home/community/work/leisure, To improve health of tissue, To decrease soft tissue restriction, To increase flexibility/ROM, To assume or resume ADL's, To reduce risk of recurrence, To foster healthy habits, To prevent re-injury, To improve ability to perform tasks related to life management and To improve tolerance to ADL's Manual Therapy Techniques to Include: Mobilization, Passive ROM and Soft tissue mobilization For the Purpose of:: To decrease pain, To decrease swelling/inflammation, To increase ROM, To improve health of tissue, To decrease soft tissue restriction and To increase flexibility/ROM TENS: Yes Cryotherapy (ice pack, ice massage): Yes For the Purpose of:: To decrease pain and To decrease swelling/inflammation Text: Thank you for the opportunity to evaluate your patient. For Medicare and Medicare HMO plans, please review the plan of care and approve it. It will need to be FAXED BACK to us at [phone] for Medicare purposes. For Medicare only, by signing this I certify the plan of care. Please let me know if there are questions or concerns regarding this plan of care. Physician Signature: Date:
== END 2023-12-16 19:00 | disposition home or self-care (01) ==
LOC: PT 07:42
PROVIDERS: PCP Family Medicine; Referring Provider Family Medicine; Visit Provider Family Medicine
DX: S43.401D Unspecified sprain of right shoulder joint, subsequent encounter (principal)
CPT/HCPCS: 97161

== ENCOUNTER → 2024-08-15 | Outpatient (CLI) | payer OTHER, SELFPAY ==
[2024-08-15 10:07] LABS: AST(SGOT) 23 U/L (15-37); Alanine Aminotransfer ALT/SGPT 34 U/L (16-61); Anion Gap 4 (5-15); BUN 15 mg/dL (7-18); BUN/Creat Ratio 14.7 RATIO (10-20); Chloride 107 mmol/L (98-107); Cholesterol 146 mg/dL (200); Creatinine, Serum 1.02 mg/dL (0.70-1.30); EST Glomerular Filtration Rate 79 mL/min (>60); Est Glom Filt Rate - Afr Amer 95 mL/min (>60); Glucose 118 mg/dL (74-106); High Density Lipoprotein 70 mg/dL; Potassium 4.3 mmol/L (3.5-5.1); Sodium Level 138 mmol/L (136-145); Triglycerides 32 mg/dL; Very Low Density Lipoprotein 6 mg/dL (5-40)
[2024-08-15 11:04] LABS: Protein:Creat Ratio 196 mg/g CRE (0-200)
[2024-08-15 11:23] LABS: Hemoglobin A1c 5.4 % (3.8-5.6)
== END | disposition home or self-care (01) ==
LOC: MFPLAB 08:08
PROVIDERS: PCP Family Medicine; Visit Provider Family Medicine
DX: I10 Essential (primary) hypertension (principal); E78.00 Pure hypercholesterolemia, unspecified; R73.9 Hyperglycemia, unspecified
CPT/HCPCS: 36415; 80048; 80061; 82570; 83036; 84156; 84450; 84460

== ENCOUNTER → 2024-08-22 | Outpatient (CLI) | payer OTHER, SELFPAY ==
--- NOTE | 2024-08-22 10:37 | RAD_ITS ---
STUDY: X-RAY - RIGHT KNEE REASON FOR EXAM: Male, 64 years old. pain and swelling TECHNIQUE: 4 view(s) of the knee. COMPARISON: May 12, 2017 FINDINGS: Normal visualized distal femur. Normal visualized proximal tibia and fibula. Normal proximal tibiofibular articulation. Normal medial femorotibial compartment. Normal lateral femorotibial compartment. Normal patellofemoral articulation. The soft tissue structures are unremarkable. RAD/Knee 4 or More Views IMPRESSION: Normal x-ray examination of the knee. Electronically Signed: Garry Hanson MD at 0:23 EST ,
== END | disposition home or self-care (01) ==
LOC: MTRAD 10:37
PROVIDERS: PCP Family Medicine; Referring Provider Family Medicine; Visit Provider Family Medicine
DX: M23.91 Unspecified internal derangement of right knee (principal)
CPT/HCPCS: 73564